=== PATIENT | female | born 1970 | race Caucasian/White ===

== ENCOUNTER 2017-02-07 02:42 | Emergency (ER) | payer OTHER ==
[2017-02-07 03:13] VITALS: BMI 24.3
[2017-02-07] MEDS ORDERED: SODIUM CHLORIDE 1,000 ML IV STA (03:46)
[2017-02-07] MEDS ORDERED: METOCLOPRAMIDE HCL INJECTION 10 MG/2 ML VIAL IVPB ONE (03:46)
[2017-02-07] MEDS ORDERED: PANTOPRAZOLE SODIUM 40 MG in SODIUM CHLORIDE 100 ML IVPB ONE (03:46)
[2017-02-07] MEDS ORDERED: FAMOTIDINE 20 MG/50 ML IVPB 50 ML IVPB ONE ×2 (03:46→04:03)
[2017-02-07 03:54] VITALS: BP 117/86; PULSE 82; TEMP 97.9
--- NOTE | 2017-02-07 03:59 | PDOC ---
History of Present Illness - General Chief Complaint: Pain Stated Complaint: STOMACH PAIN Time Seen by Provider: 02/07/17 03:39 History Source: Patient Exam Limitations: No Limitations - History of Present Illness Travel History: No Initial Comments: 02/07/17 03:54 47yo Female patient w/ PmHx: Cardiac ablation r/t SVT 5 months ago presents to ED c/o abd pain, n/v/d which began at 10pm yesterday. Patient states she took Ines [place] with mild relief. She states she still experiencing sharp shooting mid abdominal pain. Denies fever, CP, Back pain, or diff breathing. LNMP: Current. Timing/Duration: reports: constant Quality: reports: moderate, sharpness, other (Shooting) Abdominal Pain Onset Location: reports: periumbilical Pain Radiation: reports: no radiation Activities at Onset: reports: none Treatment Prior to Arrive: improves with: antacids Aggravating Factors: worse with: None, Defecation, Eating, Emotional upset, Exertion, [place], Movement, Voiding, Change in position Alleviating Factors: worse with: None, Belching, Shallow Breathing, Defecation, Eating, Holding Breath, Passing Gas, Change in Position, Rest, Voiding, Vomiting Past History - Travel Traveled outside of the country in the last 30 days: No Close contact w/someone who was outside of country & ill: No - Past Medical History Allergies/Adverse Reactions: Allergies Allergy/AdvReac Type Severity Reaction Status Date / Time No Known Allergies Allergy Verified 02/07/17 03:55 Home Medications: Ambulatory Orders Metoprolol Tartrate 50 mg PO ASDIR 06/18/14 Aspirin [ASA -] 81 mg PO DAILY #60 tab.chew 06/20/14 Flecainide Acetate [Flecainide Acetate -] 50 mg PO BID #60 tablet 06/20/14 Metoprolol Succinate [Toprol XL -] 12.5 mg PO DAILY #30 tab.sr.24h 06/20/14 Famotidine [Pepcid] 20 mg PO BID #14 tablet 02/07/17 Anemia: Yes Cardiac Disorders: Yes (a.fib) - Psycho/Social/Smoking Cessation Hx Anxiety: No Suicidal Ideation: No Smoking History: Never smoked Have you smoked in the past 12 months: No Hx Alcohol Use: No Drug/Substance Use Hx: No Substance Use Type: None, Alcohol Hx Substance Use Treatment: No Abd/GI Specific PMHX - Complaint Specific PMHX Colitis: No Diverticulitis: No Gall Bladder Disease: No GERD: No Hepatitis: No Irritable Bowel Synd (IBS): No Pancreatitis: No GI Ulcer Disease: No Review of Systems - Review of Systems Able to Perform ROS?: Yes Is the patient limited Bahamian proficient: No Constitutional: No: Chills, Fever Respiratory: No: Cough, Shortness of Breath, Stridor, Wheezing Cardiac (ROS): No: Chest Pain, Lightheadedness, Palpitations, Syncope, Chest Tightness ABD/GI: Yes: Diarrhea, Nausea, Poor Fluid Intake, Vomiting, Abdominal cramping. No: Constipated, Poor Appetite, Rectal Bleeding : No: Burning, Dysuria, Hematuria, Incontinence, Urgency Musculoskeletal: No: Back Pain Integumentary: No: Bruising, Erythema, Rash All Other Systems: Reviewed and Negative *Physical Exam - Vital Signs Last Vital Signs Temp Pulse Resp BP Pulse Ox 98.1 F 90 18 109/82 99 02/07/17 02:53 02/07/17 02:53 02/07/17 02:53 02/07/17 02:53 02/07/17 02:53 - Physical Exam General Appearance: Yes: Nourished, Appropriately Dressed, Mild Distress. No: Apparent Distress, Moderate Distress, Severe Distress Respiratory/Chest: positive: Lungs Clear, Normal Breath Sounds. negative: Respiratory Distress, Accessory Muscle Use, Labored Respiration, Rapid RR Cardiovascular: positive: Regular Rhythm, Regular Rate. negative: Edema, JVD, Murmur Gastrointestinal/Abdominal: positive: Tender, Soft, Increased Bowel Sounds, Tenderness (Generalized abd tenderness. Neg [place]). negative: Distended, Guarding, Rebound Musculoskeletal: positive: Normal Inspection. negative: CVA Tenderness Extremity: positive: Normal Capillary Refill, Normal Inspection, Normal Range of Motion Integumentary: positive: Normal Color, Dry, Warm Neurologic: positive: bilingual account manager II-XII NML intact, Fully Oriented, Alert, Normal Mood/ Affect, Normal Response, Motor Strength 5/5 ED Treatment Course - LABORATORY CBC & Chemistry Diagram: 02/07/17 04:20 02/07/17 04:20 *DC/Admit/Observation/Transfer Diagnosis at time of Disposition: Gastroenteritis - Discharge Dispostion Disposition: HOME Condition at time of disposition: Improved Admit: No - Prescriptions Prescriptions: Famotidine [Pepcid] 20 mg PO BID #14 tablet - Patient Instructions Printed Discharge Instructions: DI for Viral Gastroenteritis -- Adult Additional Instructions: FOLLOW UP WITH YOUR PRIMARY CARE PROVIDER. CALL TO SCHEDULE APPOINTMENT. TAKE MEDICATIONS PRESCRIBED. RETURN IF YOUR SYMPTOMS WORSEN OR ANY CONCERN FOR FURTHER EVALUATION. AVOID ALCOHOL, SPICY OR GREASY FOODS X5 DAYS. Print Language: LAO
[2017-02-07] MEDS ORDERED: PANTOPRAZOLE SODIUM 100 ML IVPB ONE (04:03)
[2017-02-07] MEDS ORDERED: METOCLOPRAMIDE HCL INJECTION 10 MG/2 ML VIAL ONE (04:03)
[2017-02-07 04:31] LABS: BASOPHIL 0.3 % (0-2.0); EOSINOPHIL 1.7 % (0-4.5); MCH 30.2 pg (25.7-33.7); MCHC 33.7 g/dl (32.0-36.0); MEAN CELL VOLUME 89.5 fl (80-96); MEAN PLT VOLUME 7.5 fl (7.5-11.1); NEUTROPHILS 76.4 % (42.8-82.8); PLATELET COUNT 209 K/MM3 (134-434); RDW 13.4 % (11.6-15.6); WHITE BLOOD COUNT 11.7 K/mm3 (4.0-10.0)
[2017-02-07 04:42] LABS: URINE APPEARANCE CLEAR; URINE BILIRUBIN NEGATIVE (NEGATIVE); URINE COLOR LTYELLOW; URINE GLUCOSE (UA) NEGATIVE (NEGATIVE); URINE KETONE NEGATIVE (NEGATIVE); URINE NITRITE NEGATIVE (NEGATIVE); URINE PROTEIN NEGATIVE (NEGATIVE); URINE UROBILINOGEN NEGATIVE E.U./dl (0.2-1.0)
[2017-02-07 04:50] LABS: URINE BLOOD 2+ (NEGATIVE); URINE LEUK ESTERASE TRACE (NEGATIVE)
[2017-02-07 04:52] LABS: ALBUMIN 3.5 g/dl (3.4-5.0); AMYLASE 33 U/L (25-115); ANION GAP 9 (8-16); BILIRUBIN,DIRECT 0.1 mg/dL (0.0-0.2); BILIRUBIN,TOTAL 0.3 mg/dL (0.2-1.0); CALCIUM 8.1 mg/dL (8.5-10.1); CO2 28 mmol/L (21-32); CREATININE 0.7 mg/dL (0.55-1.02); GLUCOSE,RANDOM 90 mg/dL (74-106); SGOT/AST 16 U/L (15-37); SGPT/ALT 20 U/L (12-78); TOT PROT 6.8 g/dl (6.4-8.2)
[2017-02-07 04:52] LABS: URINE BACTERIA RARE /hpf (NONE SEEN); URINE MUCUS RARE; URINE RBC 33 /hpf (0-3); URINE WBC 24 /hpf (3-5)
[2017-02-07 04:56] LABS: ALK PHOS 74 U/L (45-117)
[2017-02-07 04:57] LABS: TROPONIN I < 0.02 ng/ml (0.00-0.05)
[2017-02-07] MEDS ORDERED: POTASSIUM CHLORIDE TABS 20 MEQ TABLET.ER (FP) PO ONE ×2 (05:29→05:48)
[2017-02-07] MEDS ORDERED: DIPHENOXYLATE 2.5/ATROPINE.025 1 COMBO TABLET PO ONE (05:34)
[2017-02-07] MEDS ORDERED: DIPHENOXYLATE 2.5/ATROPINE.025 1 COMBO TABLET ONE (05:48)
== END 2017-02-07 05:59 | disposition home or self-care (01) ==
LOC: JER 02:42
PROC: 3E033GC Introduction of Other Therapeutic Substance into Peripheral Vein, Percutaneous Approach (ICD-10-PCS; principal; 2017-02-07)
PROC: 3E0337Z Introduction of Electrolytic and Water Balance Substance into Peripheral Vein, Percutaneous Approach (ICD-10-PCS; 2017-02-07)
DX: K52.9 Noninfective gastroenteritis and colitis, unspecified (principal); I47.1 Supraventricular tachycardia; Z79.82 Long term (current) use of aspirin; I48.91 Unspecified atrial fibrillation; D64.9 Anemia, unspecified
CPT/HCPCS: 36415; 80048; 80076; 81003; 81015; 82150; 82550; 83690; 84484; 84703; 85025; 85730; 96361; 96365; 96368; 96375; 99281-25; 99284-25

== ENCOUNTER 2017-03-08 21:18 | Emergency (ER) | payer OTHER ==
[2017-03-08 21:37] VITALS: TEMP 98; BMI 24.3
--- NOTE | 2017-03-08 22:47 | PDOC ---
History of Present Illness - General History Source: Patient Exam Limitations: No Limitations <Tiesha Finch - Last Filed: 03/08/17 23:33> <Jackie Brooks - Last Filed: 03/09/17 00:02> - General Chief Complaint: Irregular Heart Beat Stated Complaint: PALPITATIONS Time Seen by Provider: 03/08/17 22:16 - History of Present Illness Initial Comments: 03/08/17 23:33 Patient is a 47 year old female with a significant past medical history of Afib (on Xarelto) and ablation September 2016 (on Multaq) who presents to the ED with palpitations. Patient states that she developed rapid heart beat in 120s. Patient notes that this is a third episode since the ablation surgery. Patient notes that she had an appointment with a band director few weeks ago and her next follow up visit is in May 2017. She states that the band director is aware of this problem. Patient notes that she was told to stop Multaq after 1 month, but she still experiences arrhythmia. Patient is currently taking abx for her kidney infection. PSH - 2 C sections, ablation, endometrial ablation SH - non smoker, no alcohol use, no illicit drug use Patient Care Assistant - Dr. Keith Bowser (Tiesha Finch) Past History <Tiesha Finch - Last Filed: 03/08/17 23:33> - Past Medical History Anemia: Yes Cardiac Disorders: Yes (a.fib) - Surgical History Cardiac Surgery: Yes (ablation 09/30) - Psycho/Social/Smoking Cessation Hx Anxiety: No Suicidal Ideation: No Smoking History: Never smoked Have you smoked in the past 12 months: No Hx Alcohol Use: No Drug/Substance Use Hx: No Substance Use Type: None, Alcohol Hx Substance Use Treatment: No <Jackie Brooks - Last Filed: 03/09/17 00:02> - Past Medical History Allergies/Adverse Reactions: Allergies Allergy/AdvReac Type Severity Reaction Status Date / Time No Known Allergies Allergy Verified 03/08/17 21:32 Home Medications: Ambulatory Orders Dronedarone HCl [Multaq -] 400 mg PO BID 03/08/17 Rivaroxaban [Xarelto -] 20 mg PO DAILY 03/08/17 Cardiac Specific PMH - Complaint Specific PMHX GERD: No <Jackie Brooks - Last Filed: 03/09/17 00:02> Review of Systems - Review of Systems Able to Perform ROS?: Yes <Tiesha Finch - Last Filed: 03/08/17 23:33> <Jackie Brooks - Last Filed: 03/09/17 00:02> - Review of Systems Comments:: 03/08/17 23:34 CONSTITUTIONAL: Absent: fever, chills, diaphoresis, generalized weakness, malaise, loss of appetite HEENT: Absent: rhinorrhea, nasal congestion, throat pain, throat swelling, difficulty swallowing, mouth swelling, ear pain, eye pain, visual Changes CARDIOVASCULAR: Present: palpitations, irregular heart rate, Absent: chest pain, syncope, lightheadedness, peripheral edema RESPIRATORY: Absent: cough, shortness of breath, dyspnea with exertion, orthopnea, wheezing, stridor, hemoptysis GASTROINTESTINAL: Absent: abdominal pain, abdominal distension, nausea, vomiting, diarrhea, constipation, melena, hematochezia GENITOURINARY: Absent: dysuria, frequency, urgency, hesitancy, hematuria, flank pain, genital pain MUSCULOSKELETAL: Absent: myalgia, arthralgia, joint swelling SKIN: Absent: rash, itching, pallor HEMATOLOGIC/IMMUNOLOGIC: Absent: easy bleeding, easy bruising, lymphadenopathy, frequent infections ENDOCRINE: Absent: unexplained weight gain, unexplained weight loss, heat intolerance, cold intolerance NEUROLOGIC: Absent: headache, focal weakness or paresthesias, dizziness, unsteady gait, seizure, mental status changes, bladder or bowel incontinence PSYCHIATRIC: Absent: anxiety, depression, suicidal or homicidal ideation, hallucinations. (Tiesha Finch) *Physical Exam <Tiesha Finch - Last Filed: 03/08/17 23:33> <Jackie Brooks - Last Filed: 03/09/17 00:02> - Vital Signs Last Vital Signs Temp Pulse Resp BP Pulse Ox 98 F 95 H 20 97/76 98 03/08/17 21:33 03/08/17 22:44 03/08/17 22:44 03/08/17 22:44 03/08/17 22:44 - Physical Exam Comments: 03/08/17 23:34 GENERAL: Well developed, well nourished. Awake and alert. No acute distress. HEENT: Normocephalic, atraumatic. PERRLA, EOMI. No conjunctival pallor. Sclera are non- icteric. Moist mucous membranes. Oropharynx is clear. NECK: Supple. Full ROM. No JVD. Carotid pulses 2+ and symmetric, without bruits. No thyromegaly. No lymphadenopathy. CARDIOVASCULAR: +Tachycardic. No murmurs, rubs, or gallops. Distal pulses are 2+ and symmetric. PULMONARY: No evidence of respiratory distress. Lungs clear to auscultation bilaterally. No wheezing, rales or rhonchi. ABDOMINAL: Soft. Non-tender. Non-distended. No rebound or guarding. No organomegaly. Normoactive bowel sounds. MUSCULOSKELETAL Normal range of motion at all joints. No bony deformities or tenderness. No CVA tenderness. EXTREMITIES: No cyanosis. No clubbing. No edema. No calf tenderness. SKIN: Warm and dry. Normal capillary refill. No rashes. No jaundice. NEUROLOGICAL: Alert, awake, appropriate. Cranial nerves 2-12 intact. No deficits to light touch and temperature in face, upper extremities and lower extremities. No motor deficits in the in face, upper extremities and lower extremities. Normoreflexic in the upper and lower extremities. Normal speech. Toes are down-going bilaterally. Gait is normal without ataxia. PSYCHIATRIC: Cooperative. Good eye contact. Appropriate mood and affect. (Tiesha Finch) ED Treatment Course - LABORATORY CBC & Chemistry Diagram: 03/08/17 23:07 03/08/17 23:07 <Tiesha Finch - Last Filed: 03/08/17 23:33> - LABORATORY CBC & Chemistry Diagram: 03/08/17 23:07 03/08/17 23:07 <Jackie Brooks - Last Filed: 03/09/17 00:02> - ADDITIONAL ORDERS Additional order review: Laboratory Results 03/08/17 03/08/17 03/08/17 23:07 23:07 23:07 INR 2.24 H D Sodium 141 Potassium 3.4 L Chloride 104 Carbon Dioxide 25 Anion Gap 12 BUN 17 D Creatinine 0.7 Creat Clearance w eGFR > 60 Random Glucose 89 Calcium 9.2 Magnesium 2.4 D Total Bilirubin 0.3 AST 16 ALT 25 D Alkaline Phosphatase 84 Creatine Kinase 103 Troponin I 0.04 B-Natriuretic Peptide 45.39 Total Protein 7.3 Albumin 4.0 Serum , Qual Negative 03/08/17 23:07 RBC 4.65 MCV 89.3 MCHC 33.1 RDW 13.6 MPV 8.1 Neutrophils % 50.3 D Lymphocytes % 31.7 D Monocytes % 10.9 H Eosinophils % 6.3 H D Basophils % 0.8 Medical Decision Making <Tiesha Finch - Last Filed: 03/08/17 23:33> <Jackie Brooks - Last Filed: 03/09/17 00:02> - Medical Decision Making 03/08/17 23:35 A call was placed to Dr. Bowser to discuss the case. A call back was received from Dr. Pulliam, division operations manager physician for the cardiology group. (Tiesha Finch) *DC/Admit/Observation/Transfer <Tiesha Finch - Last Filed: 03/08/17 23:33> <Jackie Brooks - Last Filed: 03/09/17 00:02> Diagnosis at time of Disposition: Palpitation - Discharge Dispostion Disposition: HOME Condition at time of disposition: Stable - Referrals Referrals: Kassy Call MD [Primary Care Provider] - - Patient Instructions Printed Discharge Instructions: DI for Arrhythmias Additional Instructions: please see Dr Bowser in his office tomorrow - Attestations Scribe Attestion: 03/08/17 23:35 Documentation prepared by GILMAR Carballo, acting as biomedical analytical scientist for Jackie Brooks MD. (Tiesha Finch)
[2017-03-08 22:53] VITALS: BP 97/76; PULSE 95
[2017-03-08 23:21] LABS: BASOPHIL 0.8 % (0-2.0); EOSINOPHIL 6.3 % (0-4.5); MCH 29.6 pg (25.7-33.7); MCHC 33.1 g/dl (32.0-36.0); MEAN CELL VOLUME 89.3 fl (80-96); MEAN PLT VOLUME 8.1 fl (7.5-11.1); NEUTROPHILS 50.3 % (42.8-82.8); PLATELET COUNT 252 K/MM3 (134-434); RDW 13.6 % (11.6-15.6); WHITE BLOOD COUNT 9.1 K/mm3 (4.0-10.0)
[2017-03-08 23:34] LABS: INR 2.24 (0.82-1.09)
[2017-03-08 23:44] LABS: ANION GAP 12 (8-16); BILIRUBIN,TOTAL 0.3 mg/dL (0.2-1.0); CALCIUM 9.2 mg/dL (8.5-10.1); CO2 25 mmol/L (21-32); COCKROFT - GAULT 102.085; CREATININE 0.7 mg/dL (0.55-1.02); GLUCOSE,RANDOM 89 mg/dL (74-106); MAGNESIUM 2.4 mg/dL (1.8-2.4); SGOT/AST 16 U/L (15-37); SGPT/ALT 25 U/L (12-78); TOT PROT 7.3 g/dl (6.4-8.2)
[2017-03-08 23:47] LABS: ALK PHOS 84 U/L (45-117); TROPONIN I 0.04 ng/ml (0.00-0.05)
[2017-03-09] MEDS ORDERED: POTASSIUM CHLORIDE TABS 20 MEQ TABLET.ER (FP) PO ONE ×2 (00:02→00:23)
--- NOTE | 2017-03-10 08:19 | EKG ---
Test Reason : Blood Pressure : / mmHG Vent. Rate : 093 BPM Atrial Rate : 093 BPM P-R Int : 126 ms QRS Dur : 070 ms QT Int : 344 ms P-R-T Axes : 018 019 033 degrees QTc Int : 427 ms NORMAL SINUS RHYTHM NORMAL ECG WHEN COMPARED WITH ECG OF 20-JUN-2014 09:24, NO SIGNIFICANT CHANGE WAS FOUND Confirmed by KEVIN DUNN MD ([id number]) on 03/10/2017 8:18:45 AM Referred By: Confirmed By:KEVIN DUNN MD
== END 2017-03-09 00:29 | disposition home or self-care (01) ==
LOC: JER 21:18
DX: R00.2 Palpitations (principal); I48.91 Unspecified atrial fibrillation; Z79.01 Long term (current) use of anticoagulants; D64.9 Anemia, unspecified
CPT/HCPCS: 36415; 80053; 82550; 83735; 83880; 84484; 84703; 85025; 85610; 93005; 93010; 99284-25

== ENCOUNTER 2017-03-22 07:19 | Day surgery (SDC) | payer OTHER ==
[2017-03-19 10:55] VITALS: BMI 24.0
[~2017-03-22 07:19] MED LIST: LEVOFLOXACIN 500 MG PREMIX BAG IVPB ONE
[2017-03-22] MEDS ORDERED: PROPOFOL 20 ML ONE ×3 (09:03)
[2017-03-22] MEDS ORDERED: LEVOFLOXACIN 500 MG IVPB 100 ML IVPB ONE (09:04)
[2017-03-22] MEDS ORDERED: MIDAZOLAM HCL 2 MG/2 ML SINGLE DOSE VIAL ONE ×2 (09:14)
[2017-03-22] MEDS ORDERED: KETOROLAC TROMETHAMINE 30 MG/1 ML VIAL ONE (09:14)
[2017-03-22] MEDS ORDERED: DEXAMETHASONE SOD PHOSPHATE 4 MG/1 ML VIAL ONE (09:14)
[2017-03-22] MEDS ORDERED: LEVOFLOXACIN 500 MG PREMIX BAG IVPB ONE (09:17)
[2017-03-22] MEDS ORDERED: ONDANSETRON 4 MG/2 ML VIAL IVPUSH PRN (09:56)
[2017-03-22] MEDS ORDERED: PROMETHAZINE HCL 25 MG/1 ML VIAL IVPUSH PRN (09:56)
[2017-03-22] MEDS ORDERED: oxyCODONE HCL 5 MG TABLET PO PRN (09:56)
--- NOTE | 2017-03-22 09:58 | OP ---
Operative Note - Note: Operative Date: 03/22/17 Pre-Operative Diagnosis: left renal stone Operation: left eswl Findings: 2.0 cm left lower pole stone. Patient may require follow-up LULL due to size and density of stone Post-Operative Diagnosis: Same as Pre-op Surgeon: Jani Younger Anesthesia: General Operative Report Dictated: Yes
[2017-03-22 10:43] VITALS: TEMP 97.8
[2017-03-22] MEDS ORDERED: ONDANSETRON 4 MG/2 ML VIAL ONE (11:43)
[2017-03-22 14:14] VITALS: BP 121/80; PULSE 84
--- NOTE | 2017-03-22 19:55 | OP ---
DATE OF OPERATION: DATE OF DICTATION: 03/22/2017 PREOPERATIVE DIAGNOSIS: Left renal stone. POSTOPERATIVE DIAGNOSIS: Left renal stone. PROCEDURE: Left extracorporeal shock wave lithotripsy. ATTENDING: Geni Younger M.D. ANESTHESIA: General. OPERATION: Patient was brought in the operating room, placed in a supine position on the operating room table. Ultrasonography and fluoroscopy were performed. A 2-cm left lower pole stone was identified. On fluoroscopy, this appeared to be a dense stone. Patient was then given general anesthesia and preoperative antibiotics consisting of Levaquin 500 mg. The patient then underwent 3000 impulses at 20 joules of power. There was moderate fragmentation of the stone. A was not possible due to the density and size of the stone. The patient will be observed postoperatively and have repeat studies in order to gauge the efficacy of the procedure. Patient most likely will require a left ureteroscopic laser lithotripsy at another sitting. GENI RDZ M.D. [id number]
== END 2017-03-22 13:50 | disposition home or self-care (01) ==
LOC: JASU-SURG 07:19
PROVIDERS: ATTEND Urology
PROC: 0TF4XZZ Fragmentation in Left Kidney Pelvis, External Approach (ICD-10-PCS; principal; 2017-03-22 08:45)
DX: N20.0 Calculus of kidney (principal)
CPT/HCPCS: 84703; 94760

== ENCOUNTER 2017-03-24 09:06 | Emergency (ER) | payer OTHER ==
[2017-03-24 09:10] VITALS: BMI 24.7
[2017-03-24] MEDS ORDERED: morphine CARPU-JECT 4 MG/1 ML DISP.SYRIN ONE (09:24)
[2017-03-24] MEDS ORDERED: SODIUM CHLORIDE 0.9% 1000 ML INFUS.BAG IV ONE (09:30)
--- NOTE | 2017-03-24 09:30 | PDOC ---
History of Present Illness - General History Source: Patient Exam Limitations: No Limitations - History of Present Illness Initial Comments: 03/24/17 09:36 The patient is a 47 year old female, with a significant past medical history of A-fib (on Xarelto) and ablation in September 2016, who presents to the emergency department with left flank pain since 4am this morning. The patient reports having a kidney stone lithotripsy on Wednesday with her urologist. She reports since the procedure feeling overall okay until around 4:30 am today where she became symptomatic for left flank pain again. The patient reports her pain is similar to her past kidney stones, but much worse in pain intensity. She describes the pain as constant often radiating to her left groin area ranking her pain a 10/10 in pain intensity. The patient also reports being seen in [facility] ER for heart palpitations yesterday. She denies recent fevers, chills , headache or dizziness. She denies recent nausea, vomit, diarrhea or constipation. She denies recent dysuria, frequency, urgency or hematuria. She denies recent chest pain or shortness of breath. Allergies: NKA Past surgical history: See HPI Social history: Nonsmoker. Denies EtOH use and recreational drug use. Primary Care Physician: President [place]: Dr. Bowser [phone] Urologist: [phone] <Nixon Alas - Last Filed: 03/24/17 11:41> <Lisa Chand - Last Filed: 03/24/17 12:11> - General Chief Complaint: Pain, Acute Stated Complaint: POST-OP/ BACK, ABD PAIN Time Seen by Provider: 03/24/17 09:21 Past History <Nixon Alas - Last Filed: 03/24/17 11:41> - Past Medical History Anemia: Yes Asthma: No Cancer: No Cardiac Disorders: Yes (a.fib-had an ablation 2015) CVA: No COPD: No CHF: No Dementia: No Diabetes: No GI Disorders: No Disorders: No HTN: No Hypercholesterolemia: No Kidney Stones: Yes Liver Disease: No Seizures: No Thyroid Disease: No - Surgical History Cardiac Surgery: Yes (ablation 09/30) - Psycho/Social/Smoking Cessation Hx Anxiety: No Suicidal Ideation: No Smoking History: Never smoked Have you smoked in the past 12 months: No Hx Alcohol Use: No Drug/Substance Use Hx: No Substance Use Type: None Hx Substance Use Treatment: No <Lisa Chand - Last Filed: 03/24/17 12:11> - Past Medical History Allergies/Adverse Reactions: Allergies Allergy/AdvReac Type Severity Reaction Status Date / Time No Known Allergies Allergy Verified 03/24/17 09:10 Home Medications: Ambulatory Orders Rivaroxaban [Xarelto -] 20 mg PO DAILY 03/08/17 Flecainide Acetate [Flecainide Acetate -] 50 mg PO BID 03/22/17 Naproxen [Naprosyn -] 500 mg PO BID PRN 03/24/17 Oxycodone HCl/Acetaminophen [Percocet 5-325 mg Tablet] 1 tab PO Q4H #15 tablet MDD 6 03/24/17 Abd/GI Specific PMHX - Complaint Specific PMHX Colitis: No Diverticulitis: No Gall Bladder Disease: No GERD: No Hepatitis: No Irritable Bowel Synd (IBS): No Pancreatitis: No GI Ulcer Disease: No <Lisa Chand - Last Filed: 03/24/17 12:11> Review of Systems - Review of Systems Able to Perform ROS?: Yes Comments:: 03/24/17 09:36 GENERAL/CONSTITUTIONAL: No fever or chills. No weakness. HEAD, EYES, EARS, NOSE AND THROAT: No change in vision. No ear pain or discharge. No sore throat. CARDIOVASCULAR: No chest pain or shortness of breath. RESPIRATORY: No cough, wheezing, or hemoptysis. GASTROINTESTINAL: +left flank pain. No nausea, vomiting, diarrhea or constipation. GENITOURINARY: No dysuria, frequency, or change in urination. MUSCULOSKELETAL: No joint or muscle swelling or pain. No neck or back pain. SKIN: No rash NEUROLOGIC: No headache, vertigo, loss of consciousness, or change in strength/ sensation. ENDOCRINE: No increased thirst. No abnormal weight change. HEMATOLOGIC/LYMPHATIC: No anemia, easy bleeding, or history of blood clots. ALLERGIC/IMMUNOLOGIC: No hives or skin allergy. <Nixon Alas - Last Filed: 03/24/17 11:41> *Physical Exam - Vital Signs Last Vital Signs Temp Pulse Resp BP Pulse Ox 98.3 F 101 H 20 122/82 03/24/17 09:07 03/24/17 09:07 03/24/17 09:07 03/24/17 09:07 - Physical Exam Comments: 03/24/17 10:06 GENERAL: Awake, alert, and fully oriented, in no acute distress HEAD: No signs of trauma EYES: PERRLA, EOMI, sclera anicteric, conjunctiva clear ENT: Auricles normal inspection, hearing grossly normal, nares patent, Moist mucosa NECK: Normal ROM, supple, JVD, or masses LUNGS: Breath sounds equal, clear to auscultation bilaterally. No wheezes, and no crackles HEART: Regular rate and rhythm, normal S1 and S2, no murmurs, rubs or gallops BACK: LEFT CVA tenderness. ABDOMEN: Soft, normoactive bowel sounds. No guarding, no rebound. No masses EXTREMITIES: Normal range of motion, no edema. No clubbing or cyanosis. No cords, erythema, or tenderness. 2+DP/PT pulses. NEUROLOGICAL: Normal speech, normal gait, moves all extremities equally. Speech clear. SKIN: Warm, Dry, normal turgor, no rashes or lesions noted. <Nixon Alas - Last Filed: 03/24/17 11:41> - Vital Signs Last Vital Signs Temp Pulse Resp BP Pulse Ox 98.3 F 101 H 20 122/82 03/24/17 09:07 03/24/17 09:07 03/24/17 09:07 03/24/17 09:07 <Lisa Chand - Last Filed: 03/24/17 12:11> Heart Score/ECG Review - ECG Intrepretation Rhythm: Regular Rhythm Comment:: 03/24/17 11:37 rate 84 bpm, no st elevation or depression. <Lisa Chand - Last Filed: 03/24/17 12:11> ED Treatment Course - LABORATORY CBC & Chemistry Diagram: 03/24/17 09:30 03/24/17 09:30 <Nixon Alas - Last Filed: 03/24/17 11:41> - LABORATORY CBC & Chemistry Diagram: 03/24/17 09:30 03/24/17 09:30 <Lisa Chand - Last Filed: 03/24/17 12:11> Medical Decision Making - Medical Decision Making 03/24/17 11:42 Call made to , case discussed. <Nixon Alas - Last Filed: 03/24/17 11:41> - Medical Decision Making 03/24/17 09:29 47 yo F with h/o renal colic afib ( s/p ablation 09/30) had ablation 5 days ago left side 2 mm stone here today with left sided flank pain. pt describes sharp shooting pain constant since onset 4 am, radiating to groin. no n/v/d. no f/c no urinary complaints. similar to prior stone, but worse. was also seen in ed yesterday at [facility] for afib, where cardiac cath tech ,and was activated yesterday. pt prior on xarelto ( dc 2 weeks for lithotripsy). only prior surgery c section, and card. ablation. on exam, left cva tenderness. otherwise abd soft NT . ddgx. recurrent stone, pyelo, hydro. plan ct a/p wo, fluids pain control labs and ua. will d/w urologist. 03/24/17 10:17 03/24/17 11:37 03/24/17 11:43 dr. diallo informed pt feeling better, recommend reassurance, addition rx coby meds , and follow up with him tomorrow. pt feeling much improved. <Lisa Chand - Last Filed: 03/24/17 12:11> *DC/Admit/Observation/Transfer - Attestations Scribe Attestion: 03/24/17 09:37 Documentation prepared by Nixon Alas, acting as medical center manager for Lisa Chand MD. <Nixon Alas - Last Filed: 03/24/17 11:41> - Discharge Dispostion Admit: No <Lisa Chand - Last Filed: 03/24/17 12:11> Diagnosis at time of Disposition: Renal colic on left side - Discharge Dispostion Disposition: HOME - Prescriptions Prescriptions: Oxycodone HCl/Acetaminophen [Percocet 5-325 mg Tablet] 1 tab PO Q4H #15 tablet MDD 6 - Referrals Referrals: Kassy Call MD [Primary Care Provider] - - Patient Instructions Printed Discharge Instructions: Kidney Stones -- Adult Additional Instructions: follow up with your urologist Dr. Diallo tomorrow. return for fever, persistant pain or vomiting or inability to urinate. you can continue taking naprosyn as you have been for pain. take percocet one every 6 hour as needed for pain. do not drive after taking.
[2017-03-24] MEDS ORDERED: morphine CARPU-JECT 4 MG/1 ML DISP.SYRIN IVPUSH ONE (09:31)
[2017-03-24 10:20] LABS: BASOPHIL 0.5 % (0-2.0); EOSINOPHIL 0.8 % (0-4.5); MCH 29.6 pg (25.7-33.7); MCHC 32.8 g/dl (32.0-36.0); MEAN PLT VOLUME 7.9 fl (7.5-11.1); NEUTROPHILS 74.8 % (42.8-82.8); PLATELET COUNT 221 K/MM3 (134-434); RDW 13.4 % (11.6-15.6); WHITE BLOOD COUNT 16.4 K/mm3 (4.0-10.0)
[2017-03-24] MEDS ORDERED: KETOROLAC TROMETHAMINE 30 MG/1 ML VIAL ONE (10:29)
[2017-03-24 10:35] VITALS: TEMP 98.6
[2017-03-24] MEDS ORDERED: KETOROLAC TROMETHAMINE 30 MG/1 ML VIAL IVPUSH ONE (10:43)
[2017-03-24 10:49] LABS: URINE APPEARANCE CLEAR; URINE BILIRUBIN NEGATIVE (NEGATIVE); URINE COLOR LTYELLOW; URINE GLUCOSE (UA) NEGATIVE (NEGATIVE); URINE KETONE NEGATIVE (NEGATIVE); URINE LEUK ESTERASE NEGATIVE (NEGATIVE); URINE NITRITE NEGATIVE (NEGATIVE); URINE PROTEIN NEGATIVE (NEGATIVE); URINE UROBILINOGEN NEGATIVE E.U./dl (0.2-1.0)
[2017-03-24 10:51] LABS: ALK PHOS 80 U/L (45-117); ANION GAP 10 (8-16); BILIRUBIN,TOTAL 0.4 mg/dL (0.2-1.0); CALCIUM 9.4 mg/dL (8.5-10.1); CO2 26 mmol/L (21-32); COCKROFT - GAULT 78.2935; CREATININE 0.9 mg/dL (0.55-1.02); GLUCOSE,RANDOM 93 mg/dL (74-106); SGOT/AST 15 U/L (15-37); SGPT/ALT 23 U/L (12-78); TOT PROT 7.4 g/dl (6.4-8.2)
[2017-03-24 11:06] LABS: URINE BLOOD 3+ (NEGATIVE)
[2017-03-24 11:13] LABS: URINE MUCUS RARE; URINE RBC 91 /hpf (0-3); URINE WBC 11 /hpf (3-5)
[2017-03-24 12:36] VITALS: BP 116/91; PULSE 89
--- NOTE | 2017-03-24 13:27 | EKG ---
Test Reason : Blood Pressure : / mmHG Vent. Rate : 084 BPM Atrial Rate : 084 BPM P-R Int : 128 ms QRS Dur : 082 ms QT Int : 370 ms P-R-T Axes : 037 063 056 degrees QTc Int : 437 ms NORMAL SINUS RHYTHM NORMAL ECG WHEN COMPARED WITH ECG OF 08-MAR-2017 23:24, NO SIGNIFICANT CHANGE WAS FOUND Confirmed by CHERELLE SERRANO MD ([id number]) on 03/24/2017 1:27:31 PM Referred By: Confirmed By:CHERELLE SERRANO MD
== END 2017-03-24 12:36 | disposition home or self-care (01) ==
LOC: JER 09:06
PROC: 3E0333Z Introduction of Anti-inflammatory into Peripheral Vein, Percutaneous Approach (ICD-10-PCS; principal; 2017-03-24)
PROC: 3E033NZ Introduction of Analgesics, Hypnotics, Sedatives into Peripheral Vein, Percutaneous Approach (ICD-10-PCS; 2017-03-24)
PROC: 3E0337Z Introduction of Electrolytic and Water Balance Substance into Peripheral Vein, Percutaneous Approach (ICD-10-PCS; 2017-03-24)
DX: N20.0 Calculus of kidney (principal); I48.91 Unspecified atrial fibrillation; Z79.01 Long term (current) use of anticoagulants; D64.9 Anemia, unspecified
CPT/HCPCS: 36415; 74176; 80053; 81003; 81015; 84703; 85025; 93005; 93010; 96374; 96375; 99284-25

== ENCOUNTER 2017-06-14 10:38 | Day surgery (SDC) | payer OTHER ==
[2017-06-11 10:57] VITALS: BMI 24.4
[2017-06-14] MEDS ORDERED: LEVOFLOXACIN 500 MG IVPB 100 ML IVPB ONE (13:18)
[2017-06-14] MEDS ORDERED: LEVOFLOXACIN 500 MG PREMIX BAG IVPB ONE (13:18)
[2017-06-14] MEDS ORDERED: GENTAMICIN SO4 80 MG/2 ML VIAL ONE (13:29)
[2017-06-14] MEDS ORDERED: GENTAMICIN SO4 80 MG/2 ML VIAL IVPB ONE (13:30)
[2017-06-14] MEDS ORDERED: ONDANSETRON 4 MG/2 ML VIAL IVPUSH PRN (14:02)
[2017-06-14] MEDS ORDERED: PROMETHAZINE HCL 25 MG/1 ML VIAL IVPUSH PRN (14:02)
[2017-06-14] MEDS ORDERED: oxyCODONE HCL 5 MG TABLET PO PRN (14:02)
[2017-06-14] MEDS ORDERED: ONDANSETRON 4 MG/2 ML VIAL ONE (15:27)
--- NOTE | 2017-06-14 15:35 | OP ---
Operative Note - Note: Operative Date: 06/14/17 Pre-Operative Diagnosis: left renal stone Operation: left eswl Post-Operative Diagnosis: Same as Pre-op Surgeon: Jani Younger Anesthesia: General
[2017-06-14 17:53] VITALS: BP 106/72; PULSE 90; TEMP 97.8
--- NOTE | 2017-06-15 09:00 | OP ---
DATE OF OPERATION: 06/14/2017 PREOPERATIVE DIAGNOSIS: Left lower pole renal stone measuring 10 mm. POSTOPERATIVE DIAGNOSIS: Left lower pole renal stone measuring 10 mm. PROCEDURE: Left extracorporeal shockwave lithotripsy. ATTENDING: Jani Wright MD ANESTHESIA: General. OPERATION: The patient was brought in the operating room and placed in the supine position on the operating room table. Ultrasonography and fluoroscopy were performed. A 10-mm left lower pole stone was identified. General anesthesia and antibiotics were then administered; 3000 impulses at 18 joules of power were administered to the stone. Excellent fragmentation of the stone was noted. No complications were noted. DISPOSITION: The patient went to the recovery room. Kishore [id number]
== END 2017-06-14 17:30 | disposition home or self-care (01) ==
LOC: JASU-SURG 10:38
PROVIDERS: ATTEND Urology
PROC: 0TF4XZZ Fragmentation in Left Kidney Pelvis, External Approach (ICD-10-PCS; principal; 2017-06-14 12:45)
DX: N20.0 Calculus of kidney (principal)
CPT/HCPCS: 84703; 94760

== ENCOUNTER 2017-07-12 17:34 | Day surgery (SDC) | payer OTHER ==
[2017-07-09 14:35] VITALS: BMI 23.5
[2017-07-12] MEDS ORDERED: KETOROLAC TROMETHAMINE 30 MG/1 ML VIAL ONE ×2 (18:48→19:48)
[2017-07-12] MEDS ORDERED: MIDAZOLAM HCL 2 MG/2 ML SINGLE DOSE VIAL ONE ×2 (18:48)
[2017-07-12] MEDS ORDERED: PROPOFOL 20 ML ONE ×2 (18:48→19:04)
[2017-07-12] MEDS ORDERED: DEXAMETHASONE SOD PHOSPHATE 4 MG/1 ML VIAL ONE ×2 (18:48→19:48)
[2017-07-12] MEDS ORDERED: SUCCINYLCHOLINE CHLORIDE 200 MG/10 ML VIAL ONE (19:15)
[2017-07-12] MEDS ORDERED: LEVOFLOXACIN 500 MG PREMIX BAG IVPB ONE (19:15)
--- NOTE | 2017-07-12 19:58 | OP ---
Operative Note - Note: Operative Date: 07/12/17 Pre-Operative Diagnosis: left renal stone/left calcified ureteral stent Operation: ESWL of proximal calcified renal stone and residual renal stone Findings: calcified renal stent removed/second stent left in good position 1500 impulses at 20 joules of power given to stent and 1500 impulses at 20 joules of power givent to left lower pole stone Post-Operative Diagnosis: Same as Pre-op Surgeon: Jani Younger Anesthesia: General Specimens Removed: one of two left ureteral stents removed
[2017-07-12] MEDS ORDERED: oxyCODONE HCL 5 MG TABLET PO PRN (20:13)
[2017-07-12] MEDS ORDERED: PROMETHAZINE HCL 25 MG/1 ML VIAL IVPUSH PRN (20:13)
[2017-07-12] MEDS ORDERED: ONDANSETRON 4 MG/2 ML VIAL IVPUSH PRN (20:13)
[2017-07-12] MEDS: ACETAMINOPHEN 1000 MG/100 ML VIAL (NON FORMULARY) IVPB ONE ×2 (20:15→21:09)
[2017-07-12 21:13] VITALS: BP 128/88; PULSE 87; TEMP 98
--- NOTE | 2017-07-13 09:54 | OP ---
DATE OF OPERATION: 07/12/2017 PREOPERATIVE DIAGNOSES: Calcified left renal stent with residual renal stones. POSTOPERATIVE DIAGNOSES: Calcified left renal stent with residual renal stones. PROCEDURE: Extracorporeal shock wave lithotripsy of proximal calcified renal stent and extracorporeal shock wave lithotripsy of left lower-pole renal stone; cystoscopy and removal of left ureteral stent. ATTENDING SURGEON: Jani Wright MD ANESTHESIA: General. DESCRIPTION OF OPERATION: The patient was brought in the operating room, placed in the supine position on the operating room table. Ultrasonography and fluoroscopy were performed. Two left ureteral stents were in place. The stent in normal anatomic position was the stent that was placed in order to allow for the left kidney to drain. A second stent, which could not be removed because of calcification, was left in place and was noted to be in a more-distal position. Extracorporeal shock wave lithotripsy was performed on the more-distal stent. After 1500 impulses at 20 joules of power, cystoscopy was performed, and the left ureteral stent was removed. At this point, the focus of the extracorporeal shock wave lithotripsy was the residual 2-cm left lower pole renal calculus; 1500 impulses at 20 joules of power were administered to the stone fragment. It appeared that there was further fragmentation of the stone. The patient will be left with the second renal stent which had been placed 1 week ago. This stent will be removed in the office setting. The patient tolerated the procedure very well. No complications were noted. Kishore [id number]
--- NOTE | 2017-07-15 08:48 | PATH ---
Surgical Pathology Report Patient Name: MARCELO WEST Med. Rec. #: [id number] /Age/Gender: 1970 (Age: 47) / F Account: [id number] Location: [facility] Taken: 07/12/2017 Received: 07/13/2017 Reported: 07/15/2017 Physicians: Jani Younger Specimen(s) Received STENT Clinical History Calculus kidney Final Diagnosis URETERAL STENT, REMOVAL: STENT(GROSS EXAM). Electronically Signed Panda Dior M.D. Gross Description Received fresh labeled "removed stent" is a 35 cm in length yoder-blue, coiled portion of tubing, consistent with a ureteral stent. No soft tissue is present. No sections are submitted, gross only. 07/13/201707/13/2017
== END 2017-07-12 21:58 | disposition home or self-care (01) ==
LOC: JASU-SURG 17:34 → J8W 21:02 → JASU-SURG 21:58
PROVIDERS: ATTEND Urology
PROC: 0TF4XZZ Fragmentation in Left Kidney Pelvis, External Approach (ICD-10-PCS; principal; 2017-07-12 18:45)
PROC: 0TP98DZ Removal of Intraluminal Device from Ureter, Via Natural or Artificial Opening Endoscopic (ICD-10-PCS; 2017-07-12 18:45)
DX: N20.0 Calculus of kidney (principal)
CPT/HCPCS: 84703; 88300-TC; 94760

== ENCOUNTER 2017-12-08 16:08 | Emergency (ER) | payer OTHER ==
[2017-12-08 16:20] VITALS: BP 119/59; PULSE 83; TEMP 98.6; BMI 25.2
--- NOTE | 2017-12-08 16:20 | PDOC ---
Rapid Medical Evaluation Time Seen by Provider: 12/08/17 16:17 Medical Evaluation: Allergies Allergy/AdvReac Type Severity Reaction Status Date / Time No Known Allergies Allergy Verified 12/08/17 16:17 I have performed a brief in-person evaluation of this patient. The patient presents with a chief complaint of: fever, sore throat, body aches x 3 days. Pertinent physical exam findings: nasal congestion, non toxic but ill appearing I have ordered the following: influenza swab The patient will proceed to the ED for further evaluation. Discharge Disposition - Diagnosis Flu-like symptoms - Referrals - Patient Instructions - Post Discharge Activity
[2017-12-08] MEDS ORDERED: KETOROLAC TROMETHAMINE 60 MG/2 ML VIAL IM ONE (18:56)
[2017-12-08] MEDS ORDERED: KETOROLAC TROMETHAMINE 60 MG/2 ML VIAL ONE (18:57)
--- NOTE | 2017-12-08 19:01 | PDOC ---
History of Present Illness - General Chief Complaint: Cold Symptoms Stated Complaint: COLD SYMPTOMS Time Seen by Provider: 12/08/17 16:17 History Source: Patient Exam Limitations: No Limitations - History of Present Illness Initial Comments: 12/08/17 18:56 Patient is here with complaints of left upper back pain status post fall against wall on Wednesday. But states onset of fevers, chills, headache sore throat pain and cough on Wednesday. MAXIMUM TEMPERATURE was 100. Is difficult to cough due to pain of back contusion. Is in Tylenol and Motrin with minimal resolved. Timing/Duration: reports: getting worse Severity: reports: moderate Associated Symptoms: reports: dizziness, fever/chills, headache, nasal congestion, nasal drainage, sore throat. denies: wheezing Past History - Travel Traveled outside of the country in the last 30 days: No Close contact w/someone who was outside of country & ill: No - Past Medical History Allergies/Adverse Reactions: Allergies Allergy/AdvReac Type Severity Reaction Status Date / Time No Known Allergies Allergy Verified 12/08/17 16:17 Home Medications: Ambulatory Orders Flecainide Acetate [Flecainide Acetate -] 50 mg PO BID 03/22/17 Anemia: Yes Asthma: No Cancer: No Cardiac Disorders: Yes (joe-had an ablation 2015) CVA: No COPD: No CHF: No Dementia: No Diabetes: No GI Disorders: No Disorders: No HTN: No Hypercholesterolemia: No Kidney Stones: Yes Liver Disease: No Seizures: No Thyroid Disease: No - Surgical History Abdominal Surgery: Yes Appendectomy: No Cardiac Surgery: Yes (ablation 09/30) Cholecystectomy: No Lung Surgery: No Neurologic Surgery: No Orthopedic Surgery: No - Suicide/Smoking/Psychosocial Hx Smoking History: Never smoked Have you smoked in the past 12 months: No Hx Alcohol Use: No Drug/Substance Use Hx: No Substance Use Type: None Hx Substance Use Treatment: No Review of Systems - Review of Systems Able to Perform ROS?: Yes Is the patient limited Lao proficient: Yes Constitutional: Yes: Symptoms Reported, See HPI, Fever, Loss of Appetite, Malaise HEENTM: Yes: Symptoms Reported, See HPI, Nose Congestion, Throat Pain Respiratory: Yes: Symptoms reported, See HPI, Cough. No: Wheezing Musculoskeletal: Yes: Symptoms Reported, See HPI Neurological: Yes: Symptoms reported, See HPI, Headache All Other Systems: Reviewed and Negative *Physical Exam - Vital Signs Last Vital Signs Temp Pulse Resp BP Pulse Ox 98.6 F 83 18 119/59 100 12/08/17 16:16 12/08/17 16:16 12/08/17 16:16 12/08/17 16:16 12/08/17 16:16 - Physical Exam General Appearance: Yes: Nourished, Appropriately Dressed, Apparent Distress, Mild Distress, Moderate Distress HEENT: positive: RACHAEL, Normal ENT Inspection, TMs Normal, Pharynx Normal (no redness, swelling or exudate) Neck: positive: Tender, Supple. negative: Lymphadenopathy (R), Lymphadenopathy (L) Respiratory/Chest: positive: Lungs Clear (no wheezing or retractions), Decreased Breath Sounds (secondary to poor inspiratory effort secondary to left chest wall pain. Oozing, swelling, no crepitus or step-offs, no reproduced tenderness along any of the posterior rib borders from scapular down to inferior aspect.). negative: Normal Breath Sounds, Respiratory Distress, Wheezing Gastrointestinal/Abdominal: positive: Normal Bowel Sounds, Soft Musculoskeletal: positive: Normal Inspection Extremity: positive: Normal Capillary Refill, Normal Inspection, Normal Range of Motion Integumentary: positive: Normal Color, Dry, Warm. 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 Upper respiratory infection resolving. With chest wall contusion. We'll treat with NSAIDs, rest and conservative measures. *DC/Admit/Observation/Transfer Diagnosis at time of Disposition: Upper respiratory infection, viral Contusion, chest wall Qualifiers: Encounter type: initial encounter Laterality: left Qualified Code(s): S20.212A - Contusion of left front wall of thorax, initial encounter - Discharge Dispostion Disposition: HOME Condition at time of disposition: Stable Admit: No - Referrals Referrals: Kassy Call MD [Primary Care Provider] - - Patient Instructions Printed Discharge Instructions: DI for Viral Upper Respiratory Infection -- Adult, DI for Rib Contusion Additional Instructions: Rest, drink lots of fluids: Teas, water, soups, Pedialyte Saltwater gargles Steamy showers/seem to face break up mucus Avoid contact with others until fevers and cough resolved Lots of handwashing and good hygiene Continue [id number] medications for symptomatic relief Tylenol or Motrin for fever and pain Followup with private physician in one to 2 days as needed Return to emergency department for worsened symptoms, fevers, dehydration - Post Discharge Activity Forms/Work/School Notes: Back to Work
== END 2017-12-08 19:05 | disposition home or self-care (01) ==
LOC: JERFT 16:08
PROC: 3E0233Z Introduction of Anti-inflammatory into Muscle, Percutaneous Approach (ICD-10-PCS; principal; 2017-12-08)
DX: J06.9 Acute upper respiratory infection, unspecified (principal); S20.212A Contusion of left front wall of thorax, initial encounter; I48.91 Unspecified atrial fibrillation; Z87.442 Personal history of urinary calculi
CPT/HCPCS: 87804; 96372; 99281-25

== ENCOUNTER 2019-04-03 07:19 | Day surgery (SDC) | payer OTHER ==
[2019-03-31 13:32] VITALS: BMI 24.0
[2019-04-03] MEDS ORDERED: DEXAMETHASONE SOD PHOSPHATE 4 MG/1 ML VIAL ONE (08:51)
[2019-04-03] MEDS ORDERED: MIDAZOLAM HCL 2 MG/2 ML SINGLE DOSE VIAL ONE ×2 (08:51)
[2019-04-03] MEDS ORDERED: KETOROLAC TROMETHAMINE 30 MG/1 ML VIAL ONE (08:51)
[2019-04-03] MEDS ORDERED: PROPOFOL 20 ML ONE (09:41)
--- NOTE | 2019-04-03 10:55 | OP ---
Operative Note - Note: Operative Date: 04/03/19 Pre-Operative Diagnosis: Left renal stone Operation: Left ESWL Findings: 7 mm Left lower pole Renal stone Surgeon: Jani Younger Anesthesia: Fractional Estimated Blood Loss (mls): 0 Operative Report Dictated: Yes
[2019-04-03 10:59] VITALS: PULSE 66
[2019-04-03 11:33] VITALS: BP 119/80; TEMP 97.4
--- NOTE | 2019-04-04 11:37 | OP ---
DATE OF OPERATION: 04/03/2019 PREOPERATIVE DIAGNOSIS: Left renal stone. POSTOPERATIVE DIAGNOSIS: Left renal stone. PROCEDURE: Left extracorporeal shock-wave lithotripsy. ATTENDING: Geni Rdz MD ANESTHESIA: Fractional. DESCRIPTION OF PROCEDURE: The patient was brought in the operating room and placed in supine position on the operating room table. Ultrasonography and fluoroscopy were performed. A 7-mm left lower pole stone was identified. Anesthesia and preoperative antibiotics were then administered. Then 2500 impulses of shock-wave lithotripsy was administered to the stone at 17 joules of power. Excellent fragmentation was noted under real time ultrasonography and fluoroscopy. No complications were noted. DISPOSITION: To recovery room. GENI RDZ M.D. [id number]
== END 2019-04-03 11:38 | disposition home or self-care (01) ==
LOC: JASU-SURG 07:19
PROVIDERS: ATTEND Urology
PROC: 0TF4XZZ Fragmentation in Left Kidney Pelvis, External Approach (ICD-10-PCS; principal; 2019-04-03 08:45)
DX: N20.0 Calculus of kidney (principal)
CPT/HCPCS: 84703

== ENCOUNTER 2019-05-01 10:11 | Day surgery (SDC) | payer OTHER | END 2019-05-01 13:45 | disposition home or self-care (01) | LOC: JOR 10:11 → JASU-SURG 13:45 ==

== ENCOUNTER 2019-07-29 18:36 | Inpatient (IN) | payer OTHER ==
[2019-07-29] MEDS ORDERED: KETOROLAC TROMETHAMINE 30 MG/1 ML VIAL IVPUSH ONE (20:06)
[2019-07-29] MEDS ORDERED: SODIUM CHLORIDE 1,000 ML IV STA (20:06)
[2019-07-29] MEDS ORDERED: ONDANSETRON 4 MG/2 ML VIAL IVPUSH ONE (20:07)
[2019-07-29] MEDS ORDERED: KETOROLAC TROMETHAMINE 30 MG/1 ML VIAL ONE (20:26)
[2019-07-29] MEDS ORDERED: ONDANSETRON 4 MG/2 ML VIAL ONE (20:27)
[2019-07-29 20:30] LABS: HEMATOCRIT 37.9 % (32.4-45.2); HEMOGLOBIN 12.5 GM/dL (10.7-15.3); LYMPH % 26.2 % (8-40); MCH 29.6 pg (25.7-33.7); MEAN CELL VOLUME 89.6 fl (80-96); MEAN PLT VOLUME 7.5 fl (7.5-11.1); MONO % 10.6 % (3.8-10.2); NEUT % 60.2 % (42.8-82.8); PLATELET COUNT 228 K/MM3 (134-434); RBC 4.23 M/mm3 (3.60-5.2); RDW 12.9 % (11.6-15.6); WHITE BLOOD COUNT 9.3 K/mm3 (4.0-10.0)
[2019-07-29 20:36] LABS: EPI CELLS 6.2 /HPF (0-5/HPF); HYALINE CASTS 7 /lpf (0-8); URINE APPEARANCE TURBID; URINE BACTERIA 167.7 /hpf (NEGATIVE); URINE BILIRUBIN NEGATIVE (NEGATIVE); URINE COLOR YELLOW; URINE GLUCOSE (UA) NEGATIVE (NEGATIVE); URINE KETONE NEGATIVE (NEGATIVE); URINE LEUK ESTERASE TRACE (NEGATIVE); URINE NITRITE NEGATIVE (NEGATIVE); URINE PROTEIN NEGATIVE (NEGATIVE); URINE RBC 218 /hpf (0-4); URINE UROBILINOGEN 0.2 mg/dL (0.2-1.0); URINE WBC 6 /hpf (0-5)
--- NOTE | 2019-07-29 20:40 | PDOC ---
History of Present Illness - General History Source: Patient Exam Limitations: No Limitations <Abbey June - Last Filed: 07/29/19 23:09> <Herlinda Ward - Last Filed: 08/04/19 16:19> - General Chief Complaint: Pain, Acute Stated Complaint: LWR BACK PAIN Time Seen by Provider: 07/29/19 19:31 Past History - Past Medical History Anemia: Yes Asthma: No Cancer: No Cardiac Disorders: Yes (aGraysonfib-had an ablation 2015) CVA: No COPD: No CHF: No Dementia: No Diabetes: No GI Disorders: No Disorders: No (RENAL CALCULI, HX ESWOL SEVERAL X'S) HTN: No Hypercholesterolemia: No Kidney Stones: Yes Liver Disease: No Seizures: No Thyroid Disease: No - Surgical History Abdominal Surgery: Yes (fibroid) Appendectomy: No Cardiac Surgery: Yes (ablation 09/30) Cholecystectomy: No Lung Surgery: No Neurologic Surgery: No Orthopedic Surgery: No - Suicide/Smoking/Psychosocial Hx Smoking History: Never smoked Have you smoked in the past 12 months: No Hx Alcohol Use: No Drug/Substance Use Hx: No Substance Use Type: None Hx Substance Use Treatment: No <Abbey June - Last Filed: 07/29/19 23:09> <Herlinda Ward - Last Filed: 08/04/19 16:19> - Past Medical History Allergies/Adverse Reactions: Allergies Allergy/AdvReac Type Severity Reaction Status Date / Time No Known Allergies Allergy Verified 07/29/19 18:40 Home Medications: Ambulatory Orders Flecainide Acetate [Flecainide Acetate -] 50 mg PO BID 03/22/17 Abd/GI Specific PMHX - Complaint Specific PMHX Colitis: No Diverticulitis: No Gall Bladder Disease: No GERD: No Hepatitis: No Irritable Bowel Synd (IBS): No Pancreatitis: No GI Ulcer Disease: No <Abbey June - Last Filed: 07/29/19 23:09> *Physical Exam - Vital Signs Last Vital Signs Temp Pulse Resp BP Pulse Ox 98.5 F 93 H 20 136/91 99 07/29/19 18:38 07/29/19 18:38 07/29/19 18:38 07/29/19 18:38 07/29/19 18:38 - Physical Exam General Appearance: No: Apparent Distress Respiratory/Chest: positive: Lungs Clear, Normal Breath Sounds. negative: Respiratory Distress Cardiovascular: positive: Regular Rhythm, Regular Rate, S1, S2. negative: Murmur Gastrointestinal/Abdominal: positive: Normal Bowel Sounds, Soft. negative: Tender, Distended, Guarding, Rebound Musculoskeletal: positive: CVA Tenderness (R) Neurologic: positive: Alert, Normal Mood/Affect <Abbey June - Last Filed: 07/29/19 23:09> - Vital Signs Last Vital Signs Temp Pulse Resp BP Pulse Ox 98.1 F 71 14 101/65 100 07/30/19 13:34 07/30/19 13:34 07/30/19 13:34 07/30/19 13:34 07/30/19 13:34 <Herlinda Ward - Last Filed: 08/04/19 16:19> ED Treatment Course - LABORATORY CBC & Chemistry Diagram: 07/29/19 20:26 07/29/19 20:26 - ADDITIONAL ORDERS Additional order review: Laboratory Results 07/29/19 07/29/19 20:26 20:26 Urine Color Yellow Urine Appearance Turbid Urine pH 8.0 Ur Specific [place] 1.014 Urine Protein Negative Urine Glucose (UA) Negative Urine Ketones Negative Urine Blood 3+ H Urine Nitrite Negative Urine Bilirubin Negative Urine Urobilinogen 0.2 Ur Leukocyte Esterase Trace Urine WBC (Auto) 6 Urine RBC (Auto) 218 Urine Casts (Auto) 7 U Epithel Cells (Auto) 6.2 Urine Bacteria (Auto) 167.7 Urine HCG, Qual Negative 07/29/19 20:26 RBC 4.23 MCV 89.6 MCHC 33.0 RDW 12.9 MPV 7.5 Neutrophils % 60.2 Lymphocytes % 26.2 D Monocytes % 10.6 H Eosinophils % 2.0 D Basophils % 1.0 - RADIOLOGY Radiology Studies Ordered: Category Date Time Status SPIRAL- RENAL-STONE CT [CT] Stat CT Scan 07/29/19 20:07 Ordered - Medications Given in the ED: ED Medications Discontinued Medications Generic Name Dose Route Start Last Admin Trade Name Freq PRN Reason Stop Dose Admin Ketorolac Tromethamine 30 mg 07/29/19 20:06 07/29/19 20:35 Toradol Injection - IVPUSH 07/29/19 20:07 30 mg ONCE ONE Administration Ondansetron HCl 4 mg 07/29/19 20:07 07/29/19 20:36 Zofran Injection IVPUSH 07/29/19 20:08 4 mg ONCE ONE Administration <Abbey June - Last Filed: 07/29/19 23:09> - LABORATORY CBC & Chemistry Diagram: 07/30/19 07:36 07/30/19 07:36 - ADDITIONAL ORDERS Additional order review: 07/29/19 20:26 Urine Culture - Final Urine - Urine Clean Catch NO GROWTH OBTAINED 07/29/19 20:26 RBC 4.23 MCV 89.6 MCHC 33.0 RDW 12.9 MPV 7.5 Neutrophils % 60.2 Lymphocytes % 26.2 D Monocytes % 10.6 H Eosinophils % 2.0 D Basophils % 1.0 - Medications Given in the ED: ED Medications Discontinued Medications Generic Name Dose Route Start Last Admin Trade Name Freq PRN Reason Stop Dose Admin Acetaminophen 1,000 mg 07/30/19 12:45 07/30/19 12:48 Ofirmev Injection - IVPB 07/30/19 12:46 1,000 mg ONCE ONE Administration Flecainide Acetate 50 mg 07/30/19 10:00 07/30/19 17:48 Tambacor - PO Not Given BID RISSA Sodium Chloride 1,000 mls @ 1,000 mls/hr 07/29/19 20:06 07/29/19 20:35 Normal Saline - IV 07/29/19 21:05 1,000 mls/hr ASDIR STA Administration Sodium Chloride 1,000 mls @ 100 mls/hr 07/30/19 02:30 07/30/19 03:37 Normal Saline - IV 100 mls/hr ASDIR RISSA Administration Lactated Ringer's 1,000 mls @ 75 mls/hr 07/30/19 12:40 07/30/19 13:35 Lactated Ringers Solution IV 75 mls/hr ASDIR RISSA Administration Ketorolac Tromethamine 30 mg 07/29/19 20:06 07/29/19 20:35 Toradol Injection - IVPUSH 07/29/19 20:07 30 mg ONCE ONE Administration Ketorolac Tromethamine 30 mg 07/30/19 02:25 07/30/19 06:31 Toradol Injection - IVPUSH 08/04/19 02:24 30 mg Q6H PRN Administration PAIN LEVEL 4 - 6 Morphine Sulfate 2 mg 07/30/19 02:25 07/30/19 08:14 Morphine Sulfate IVPUSH 2 mg Q4H PRN Administration PAIN LEVEL 7 - 10 Morphine Sulfate 2 mg 07/30/19 12:40 07/30/19 16:50 Morphine Sulfate IVPUSH 2 mg Q4H PRN Administration PAIN LEVEL 7 - 10 Ondansetron HCl 4 mg 07/29/19 20:07 07/29/19 20:36 Zofran Injection IVPUSH 07/29/19 20:08 4 mg ONCE ONE Administration Ondansetron HCl 4 mg 07/30/19 12:40 07/30/19 13:00 Zofran Injection IVPUSH 4 mg Q6H PRN Administration NAUSEA AND/OR VOMITING Tamsulosin HCl 0.4 mg 07/30/19 08:30 07/30/19 08:16 Flomax - PO 0.4 mg DAILY@0830 RISSA Administration <Herlinda Ward - Last Filed: 08/04/19 16:19> Medical Decision Making - Medical Decision Making 49 y/o F hx of kidney stones (on left side, s/p lithotripsy and stent with removal in the past), afib (on Flecainide, not on AC, s/p ablation Sep 2016) presents with R flank pain and nausea from 2 PM today. States symptoms feel just like her kidney stones in the past and believes she may have passed a small stone too, but still with some pain. Denies fever, sob, cp, vomiting, diarrhea, dysuria, hematuria. Probable kidney stones Plan: labs, IVF, toradol, spiral CT 07/29/19 20:38 Patient more comfortable on reassessment Abnormal Lab Results 07/29/19 07/29/19 07/29/19 20:26 20:26 20:26 Monocytes % 10.6 H Anion Gap 4 L BUN 20.4 H AST 13 L Urine Blood 3+ H Spiral CT results: Minimal atelectasis and scarring in lung bases. No pleural effusions. Small hiatal hernia. The liver, contracted gallbladder, pancreas, adrenal glands, and spleen are grossly unremarkable. *Mild right hydronephrosis due to a 5 mm x 4 mm x 7 mm calculus in the proximal right ureter at the level of L3-L4. Additional small bilateral intrarenal calculi. No AAA. No evidence for diverticulitis, appendicitis, small bowel obstruction, free fluid, or free air. Attempted to reach patient's urologist, Dr. Travis but unable to get in touch ; spoke to his who requested calling Dr. Kwon Spoke to urologist, Dr. Kwon, who recommended admission 07/29/19 23:07 <Abbey June - Last Filed: 07/29/19 23:09> *DC/Admit/Observation/Transfer - Discharge Dispostion Decision to Admit order: Yes <Abbey June - Last Filed: 07/29/19 23:09> - Attestations Physician Attestion: I reviewed the case with the mid-level practitioner and agree with the mid- level practitioner's assessment, diagnosis and disposition. <Herlinda Ward - Last Filed: 08/04/19 16:19> Diagnosis at time of Disposition: Right kidney stone - Discharge Dispostion Disposition: AGAINST MEDICAL ADVICE Condition at time of disposition: Fair
[2019-07-29 20:58] LABS: ALBUMIN 3.9 g/dl (3.4-5.0); BILIRUBIN,TOTAL 0.3 mg/dL (0.2-1); BLOOD UREA NITROGEN 20.4 mg/dL (7-18); CALCIUM 9.3 mg/dL (8.5-10.1); CREATININE 0.9 mg/dL (0.55-1.3); POTASSIUM 3.6 mmol/L (3.5-5.1); TOT PROT 6.8 g/dl (6.4-8.2)
--- NOTE | 2019-07-29 23:43 | PN ---
Teaching Attending Note Name of Resident: Hilda Sexton ATTENDING PHYSICIAN STATEMENT I saw and evaluated the patient. I reviewed the resident's note and discussed the case with the resident. I agree with the resident's findings and plan as documented. SUBJECTIVE: Patient is a 49 year old woman with PMH of Kidney stones (on left side, s/p lithotripsy and stent with removal in the past), and Afib (on Flecainide, not on AC, s/p ablation Sep 2016), who presents with right flank pain and nausea from 2 PM today. States symptoms feel just like her kidney stones in the past and believes she may have passed a small stone too, but still with some pain. Denies fever, SOB, chest pain, vomiting, diarrhea, dysuria or gross hematuria. Denies tobacco use, alcohol or illicit drug use. No recent travel or sick contacts. No FH of kidney stones but her mother has Afib. 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 OBJECTIVE: Alert Vital Signs Period Temp Pulse Resp BP Sys/Rojas Pulse Ox Last 24 Hr 98.5 F 93 20 136/91 99 HEENT: No Jaundice, eye redness or discharge, PERRLA, EOMI. Normocephalic, atraumatic. External ears are normal and hearing is grossly intact. No nasal discharge. Neck: Supple, nontender. No palpable adenopathy or thyromegaly. No JVD Chest: Good effort. Clear to auscultation and percussion. Heart: Regular. No S3, rub or murmur Abdomen: Not distended, soft, right CVA/flank tenderness; no HSM. No rebound or guarding. Normal bowel sounds. Ext: Peripheral pulses intact. No leg edema. Skin: Warm and dry. No petechiae, rash or ecchymosis. Neuro: Alert. Oriented x3. CN 2-12 grossly intact. Sensation grossly intact in all four extremities and DTR are symmetric. Psych: Appropriate mood and affect. Good insight. Home Medications Medication Instructions Recorded Flecainide Acetate [Flecainide 50 mg PO BID 03/22/17 Acetate -] Abnormal Lab Results 07/29/19 07/29/19 07/29/19 20:26 20:26 20:26 Monocytes % 10.6 H Anion Gap 4 L BUN 20.4 H AST 13 L Urine Blood 3+ H ASSESSMENT AND PLAN: 1. Kidney stones/Hematuria - Spiral CT scan of abdomen and pelvis showed "mild right hydronephrosis due to a 5 mm x 4 mm x 7 mm calculus in the proximal right ureter at the level of L3-L4. Additional small bilateral intrarenal calculi. Minimal atelectasis and scarring in lung bases. No pleural effusions. Small hiatal hernia. The liver, contracted gallbladder, pancreas, adrenal glands, and spleen are grossly unremarkable. No AAA. No evidence for diverticulitis, appendicitis, small bowel obstruction, free fluid, or free air." ER staff consulted urologist, Dr. Kwon. EKG shows NSR with no significant ST-T wave changes. Will treat with IV NS, IV Toradol, IV Zofran, Flomax and use morphine for breakthrough pain and strain her urine. Will keep her NPO. Will continue comprehensive care of all her comorbid conditions including flecanide for Afib. Repeat UA in the morning. 2. DVT prophylaxis - SCD 3. Advance directives - Full code
--- NOTE | 2019-07-30 01:10 | HP ---
CHIEF COMPLAINT: right side back pain Urologist: Dr. Travis Cards: Dr. Khanna HISTORY OF PRESENT ILLNESS: Ms. Iglesias is a 49y/o female with history of nephrolithiasis s/p lithotripsy and stent placement and removal as well as paroxysmal atrial fibrillation s/p ablation not on anti-coagulation who presents with right side flank pain. The pain began suddenly at 2:00pm on 07/29/19 located in the right flank radiating through the right abdomen to midline. She reports sharp and colicky in nature with 10/10 max pain. She reports lying down improves the pain and moving around makes it worse. She reports nausea, bloating, chills, fever, and urinary frequency the night before. She denies hematuria and dysuria. LMP was October 2018 when she had endometrial ablation done for heavy periods. Pt has 5 children. She has history of stones for the last 3 years approximately and was supposed to undergo lithotripsy last month but had to cancel. No family history of stones. ER course was notable for: (1) UA +3 blood, trace leuk esterase (2) CT mild right hydronephrosis due to [id number] calculus in proximal right ureter with additional small bilateral intrarenal calculi (3) administered Toradol, Zofran, 1L bolus NS (4) EKG NSR HR 67 QTc 454 Recent Travel: none PAST MEDICAL HISTORY: left side nephrolithiasis s/p lithotripsy and stent placement and removal paroxysmal atrial fibrillation s/p ablation 2015 PAST SURGICAL HISTORY: x 2 Social History: Smoking: denies Alcohol: denies Drugs: denies Pt lives at home with 3 of her sons. 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 Family History: mother- a-fib no hx of nephrolithiasis Allergies No Known Allergies Allergy (Verified 07/29/19 18:40) HOME MEDICATIONS: Home Medications Medication Instructions Recorded Flecainide Acetate [Flecainide 50 mg PO BID 03/22/17 Acetate -] REVIEW OF SYSTEMS CONSTITUTIONAL: Present: fever, chills Absent: diaphoresis, generalized weakness HEENT: Absent: rhinorrhea, nasal congestion CARDIOVASCULAR: Absent: chest pain, palpitations, irregular heart beat RESPIRATORY: Absent: SOB, wheezing GASTROINTESTINAL: Present: abdominal pain, nausea Absent: vomiting, diarrhea, constipation GENITOURINARY: Present: flank pain, frequency Absent: dysuria, hematuria MUSCULOSKELETAL: Present: back pain SKIN: Absent: rash, itching, pallor HEMATOLOGIC/IMMUNOLOGIC: Absent: easy bleeding, easy bruising, lymphadenopathy, frequent infections ENDOCRINE: Absent: unexplained weight gain, unexplained weight loss, heat intolerance, cold intolerance NEUROLOGIC: Absent: headache, bladder or bowel incontinence PSYCHIATRIC: Absent: anxiety, depression, suicidal or homicidal ideation, hallucinations. PHYSICAL EXAMINATION Vital Signs - 24 hr 07/29/19 18:38 Temperature 98.5 F Pulse Rate 93 H Respiratory 20 Rate Blood Pressure 136/91 O2 Sat by Pulse 99 Oximetry (%) GENERAL: Awake, alert, and fully oriented, in no acute distress. HEAD: Normal with no signs of trauma. EYES: Pupils equal, round and reactive to light, extraocular movements intact, sclera anicteric, conjunctiva clear. No lid lag. EARS, NOSE, THROAT: Ears normal, nares patent, Moist mucous membranes. NECK: Normal range of motion, supple without lymphadenopathy, JVD, or masses. LUNGS: Breath sounds equal, clear to auscultation bilaterally. No wheezes, and no crackles. No accessory muscle use. HEART: Regular rate and rhythm, systolic murmur 3/6 ABDOMEN: Soft, nontender, not distended, hyperactive bowel sounds, no guarding, no rebound MUSCULOSKELETAL: Normal range of motion at all joints. No bony deformities or tenderness. Right side CVA tenderness UPPER EXTREMITIES: 2+ pulses, warm, well-perfused. No cyanosis. No clubbing. No peripheral edema. LOWER EXTREMITIES: 2+ pulses, warm, well-perfused. No calf tenderness. No peripheral edema. NEUROLOGICAL: Cranial nerves II-XII intact. Normal speech. PSYCHIATRIC: Cooperative. Good eye contact. Appropriate mood and affect. SKIN: Warm, dry, normal turgor, no rashes or lesions noted, normal capillary refill. Laboratory Results - last 24 hr 07/29/19 07/29/19 07/29/19 20:26 20:26 20:26 WBC 9.3 RBC 4.23 Hgb 12.5 Hct 37.9 MCV 89.6 MCH 29.6 MCHC 33.0 RDW 12.9 Plt Count 228 MPV 7.5 Absolute Neuts (auto) 5.6 Neutrophils % 60.2 Lymphocytes % 26.2 D Monocytes % 10.6 H Eosinophils % 2.0 D Basophils % 1.0 Nucleated RBC % 0 Sodium 141 Potassium 3.6 Chloride 106 Carbon Dioxide 32 Anion Gap 4 L BUN 20.4 H Creatinine 0.9 Est GFR (CKD-EPI)AfAm 87.63 Est GFR (CKD-EPI)NonAf 75.61 Random Glucose 90 Calcium 9.3 Total Bilirubin 0.3 AST 13 L ALT 23 Alkaline Phosphatase 70 Total Protein 6.8 Albumin 3.9 Urine Color Urine Appearance Urine pH Ur Specific [place] Urine Protein Urine Glucose (UA) Urine Ketones Urine Blood Urine Nitrite Urine Bilirubin Urine Urobilinogen Ur Leukocyte Esterase Urine WBC (Auto) Urine RBC (Auto) Urine Casts (Auto) U Epithel Cells (Auto) Urine Bacteria (Auto) Urine HCG, Qual Negative 07/29/19 20:26 WBC RBC Hgb Hct MCV MCH MCHC RDW Plt Count MPV Absolute Neuts (auto) Neutrophils % Lymphocytes % Monocytes % Eosinophils % Basophils % Nucleated RBC % Sodium Potassium Chloride Carbon Dioxide Anion Gap BUN Creatinine Est GFR (CKD-EPI)AfAm Est GFR (CKD-EPI)NonAf Random Glucose Calcium Total Bilirubin AST ALT Alkaline Phosphatase Total Protein Albumin Urine Color Yellow Urine Appearance Turbid Urine pH 8.0 Ur Specific [place] 1.014 Urine Protein Negative Urine Glucose (UA) Negative Urine Ketones Negative Urine Blood 3+ H Urine Nitrite Negative Urine Bilirubin Negative Urine Urobilinogen 0.2 Ur Leukocyte Esterase Trace Urine WBC (Auto) 6 Urine RBC (Auto) 218 Urine Casts (Auto) 7 U Epithel Cells (Auto) 6.2 Urine Bacteria (Auto) 167.7 Urine HCG, Qual ASSESSMENT/PLAN: Ms. Iglesias is a 49 y/o female with history of nephrolithiasis s/p lithotripsy and stent placement and removal as well as paroxysmal atrial fibrillation s/p ablation not on anti-coagulation who presents with sudden onset sharp and colicky right side flank pain. #obstructive nephrolithiasis with mild hydronephrosis Pt has hx of stones on left side over the last few years. CT showed mild right hydronephrosis due to [id number] calculus in proximal right ureter with additional small bilateral intrarenal calculi. UA showed +3 blood, trace leuk esterase, pH 8.0. -Toradol 30mg Q6H PRN pain -morphine 2mg Q4H PRN breakthrough pain -Flomax 0.4mg daily -NS 100mL/hr -NPO for possible procedure -repeat urinalysis since pH of 8.0 may be indicative of early infection -urology (Dr. Kwon) consulted by ED -monitor urine output and strain for stones -CBC, CMP -f/u outpatient workup for stone composition #paroxysmal atrial fibrillation Pt had ablation which she reports worked on certain foci but new foci have come up since procedure. She is currently not on anti-coagulation. -continue home flecainide 50mg BID -avoid Zofran for QTc prolongation, consider alternative anti-emetics if needed FEN NS 100mL/hr monitor labs NPO for possible procedure DVT Ppx SCDs, consider pharmacological anti-coagulation following possible procedure dispo med/surg floor Visit type - Emergency Visit Emergency Visit: Yes ED Registration Date: 07/29/19 Care time: The patient presented to the Emergency Department on the above date and was hospitalized for further evaluation of their emergent condition. - New Patient This patient is new to me today: Yes Date on this admission: 07/30/19 - Critical Care Critical Care patient: No ATTENDING PHYSICIAN STATEMENT I saw and evaluated the patient. I reviewed the resident's note and discussed the case with the resident. I agree with the resident's findings and plan as documented. SUBJECTIVE: OBJECTIVE: ASSESSMENT AND PLAN:
[2019-07-30] MEDS ORDERED: KETOROLAC TROMETHAMINE 15 MG/ML VIAL IVPUSH PRN (02:25)
[2019-07-30] MEDS ORDERED: MORPHINE SULFATE 2 MG/ML VIAL IVPUSH PRN ×2 (02:25→12:40)
[2019-07-30] MEDS ORDERED: SODIUM CHLORIDE 1,000 ML IV SCH ×2 (02:30→12:40)
[2019-07-30 03:51] VITALS: BMI 25.4
[2019-07-30 08:22] LABS: BASO % 0.7 % (0-2.0); HEMATOCRIT 34.7 % (32.4-45.2); HEMOGLOBIN 11.7 GM/dL (10.7-15.3); LYMPH % 37.8 % (8-40); MCHC 33.7 g/dl (32.0-36.0); MEAN PLT VOLUME 7.5 fl (7.5-11.1); MONO % 10.3 % (3.8-10.2); NEUT % 48.2 % (42.8-82.8); PLATELET COUNT 193 K/MM3 (134-434); RBC 3.89 M/mm3 (3.60-5.2); RDW 13.3 % (11.6-15.6); WHITE BLOOD COUNT 5.6 K/mm3 (4.0-10.0)
[2019-07-30] MEDS ORDERED: TAMSULOSIN HCL 0.4 MG CAP PO SCH (08:30)
[2019-07-30 08:41] LABS: ALBUMIN 3.6 g/dl (3.4-5.0); BILIRUBIN,TOTAL 0.9 mg/dL (0.2-1); BLOOD UREA NITROGEN 16.6 mg/dL (7-18); CALCIUM 8.9 mg/dL (8.5-10.1); CREATININE 0.7 mg/dL (0.55-1.3); MAGNESIUM 2.3 mg/dL (1.8-2.4); PHOSPHOROUS 3.1 mg/dL (2.5-4.9); POTASSIUM 3.8 mmol/L (3.5-5.1); TOT PROT 6.2 g/dl (6.4-8.2)
[2019-07-30] MEDS ORDERED: PT OWN MED DRAWER 7, Y5N ONE ×3 (09:56→14:22)
[2019-07-30] MEDS ORDERED: FLECAINIDE ACETATE 50 MG TABLET PO SCH ×2 (10:00→22:00)
[2019-07-30] MEDS ORDERED: FLECAINIDE ACETATE 50 MG PO SCH (10:00)
[2019-07-30 10:24] LABS: EPI CELLS 20.9 /HPF (0-5/HPF); HYALINE CASTS 38 /lpf (0-8); URINE APPEARANCE TURBID; URINE BACTERIA 1431.1 /hpf (NEGATIVE); URINE BILIRUBIN NEGATIVE (NEGATIVE); URINE COLOR YELLOW; URINE GLUCOSE (UA) NEGATIVE (NEGATIVE); URINE KETONE NEGATIVE (NEGATIVE); URINE LEUK ESTERASE 3+ (NEGATIVE); URINE NITRITE NEGATIVE (NEGATIVE); URINE PROTEIN TRACE (NEGATIVE); URINE RBC 151 /hpf (0-4); URINE UROBILINOGEN 0.2 mg/dL (0.2-1.0); URINE WBC 59 /hpf (0-5)
--- NOTE | 2019-07-30 10:55 | CON.GU ---
Consult Consult Specialty:: Referred by:: Clement Reason for Consultation:: R ureteral calculus - History of Present Illness Chief Complaint: R flank pain History of Present Illness: 49y/o female with history of nephrolithiasis s/p lithotripsy and stent placement and removal as well as paroxysmal atrial fibrillation s/p ablation not on anti-coagulation who presents with right side flank pain. The pain began suddenly at 2:00pm on 07/29/19 located in the right flank radiating through the right abdomen to midline. She reports sharp and colicky in nature with 10/10 max pain. She reports lying down improves the pain and moving around makes it worse. She reports nausea, bloating, chills, fever, and urinary frequency the night before. She denies hematuria and dysuria. LMP was October 2018 when she had endometrial ablation done for heavy periods. Pt has 5 children. She has history of stones for the last 3 years approximately and was supposed to undergo lithotripsy last month but had to cancel. No family history of stones. cons req. ER course was notable for: (1) UA +3 blood, trace leuk esterase (2) CT mild right hydronephrosis due to [id number] calculus in proximal right ureter with additional small bilateral intrarenal calculi (3) administered Toradol, Zofran, 1L bolus NS (4) EKG NSR HR 67 QTc 454 Recent Travel: none PAST MEDICAL HISTORY: left side nephrolithiasis s/p lithotripsy and stent placement and removal paroxysmal atrial fibrillation s/p ablation 2015 PAST SURGICAL HISTORY: x 2 - History Source History Provided By: Patient - Past Medical History Cardio/Vascular: Yes: AFIB ...LMP: 10/15/19 - Alcohol/Substance Use Hx Alcohol Use: No - Smoking History Smoking history: Never smoked Have you smoked in the past 12 months: No Home Medications - Allergies Allergies/Adverse Reactions: Allergies Allergy/AdvReac Type Severity Reaction Status Date / Time No Known Allergies Allergy Verified 07/29/19 18:40 - Home Medications Home Medications: Ambulatory Orders Flecainide Acetate [Flecainide Acetate -] 50 mg PO BID 03/22/17 Review of Systems - Review of Systems Genitourinary: reports: Flank Pain, Frequency, Pain Physical Exam- Vital Signs: Vital Signs Temperature 98.6 F 07/30/19 09:01 Pulse Rate 85 07/30/19 09:01 Respiratory Rate 18 07/30/19 09:01 Blood Pressure 132/86 07/30/19 09:01 O2 Sat by Pulse Oximetry (%) 100 07/30/19 03:59 Constitutional: Yes: Well Nourished, No Distress, Calm Cardiovascular: Yes: Murmur Gastrointestinal: Yes: Soft, Tenderness (RUQ) Renal/: Yes: CVA Tenderness - Right. No: Bladder Distention Kidneys: Yes: FLank Pain Right Pelvis: Yes: WNL External Genitalia: Yes: WNL Musculoskeletal: Yes: WNL Extremities: Yes: WNL Labs: CBC, BMP 07/30/19 07:36 07/30/19 07:36 Imaging - Results Cat Scan: Report Reviewed, Image Reviewed Problem List - Problems (1) Ureteral calculus, right Assessment/Plan: ivfs, tamsulosin, rocephin, cysto R JJ stent insertion Code(s): N20.1 - CALCULUS OF URETER (2) Hydronephrosis concurrent with and due to calculi of kidney and ureter Code(s): N13.2 - HYDRONEPHROSIS WITH RENAL AND URETERAL CALCULOUS OBSTRUCTION (3) Renal calculus Code(s): N20.0 - CALCULUS OF KIDNEY
--- NOTE | 2019-07-30 11:06 | OP ---
Operative Note - Note: Operative Date: 07/30/19 Pre-Operative Diagnosis: R ureteral calculus, R hydronephrosis Operation: cystoscopy and R JJ stent insertion Findings: radiolucent 7 mm R proximal ureteral calculus w mild R hydronephrosis, bilat renal calculi Post-Operative Diagnosis: Same as Pre-op Surgeon: Tom Kwon Anesthesiologist/SIGN WIRER: Liang Caceres Anesthesia: General Estimated Blood Loss (mls): 0 Drains & Tubes with Location: 6 fr 24 cm R JJ stent Operative Report Dictated: Yes
[2019-07-30] MEDS ORDERED: CEFTRIAXONE 1 GM in DEXTROSE 5%-WATER - 50 ML IVPB SCH (11:15)
[2019-07-30] MEDS ORDERED: cefTRIAXone SODIUM 1 GM VIAL ONE (11:27)
[2019-07-30] MEDS ORDERED: DEXTROSE 5%-WATER - 50 ML IVPB ONE (11:27)
[2019-07-30] MEDS ORDERED: ONDANSETRON 4 MG/2 ML VIAL IVPUSH PRN ×2 (11:53→12:40)
[2019-07-30] MEDS ORDERED: MIDAZOLAM HCL 2 MG/2 ML SINGLE DOSE VIAL ONE (11:58)
[2019-07-30] MEDS ORDERED: PROPOFOL 20 ML ONE ×3 (11:59→12:10)
[2019-07-30] MEDS ORDERED: LACTATED RINGERS SOLUTION 1,000 ML IV SCH ×2 (12:00→12:40)
[2019-07-30] MEDS ORDERED: cefTRIAXone SODIUM 1 GM VIAL IVPB ONE (12:02)
[2019-07-30] MEDS ORDERED: KETOROLAC TROMETHAMINE 30 MG/1 ML VIAL ONE (12:12)
[2019-07-30] MEDS ORDERED: DEXAMETHASONE SOD PHOSPHATE 4 MG/1 ML VIAL ONE ×2 (12:12)
[2019-07-30] MEDS ORDERED: KETOROLAC TROMETHAMINE 30 MG/1 ML VIAL IVPUSH PRN (12:40)
[2019-07-30] MEDS ORDERED: ACETAMINOPHEN INJECTION 100 ML IVPB ONE (12:41)
[2019-07-30] MEDS ORDERED: ACETAMINOPHEN 1000 MG/100 ML VIAL (NON FORMULARY) IVPB ONE (12:45)
[2019-07-30] MEDS ORDERED: ONDANSETRON 4 MG/2 ML VIAL ONE (13:02)
--- NOTE | 2019-07-30 13:11 | OP ---
DATE OF OPERATION: 07/30/2019 PREOPERATIVE DIAGNOSES: Right ureteral calculus, right hydronephrosis, bilateral renal calculi. POSTOPERATIVE DIAGNOSES: Right ureteral calculus, right hydronephrosis, bilateral renal calculi. PROCEDURE: Cystoscopy, right double-J stent insertion. SURGEON: Tom Kwon MD DRIVER'S EDUCATION INSTRUCTOR: None. ANESTHESIA: General via mask. ANESTHESIOLOGIST: Liang Caceres MD SPECIMENS: None. CULTURES: None. DRAINS: A 6-Mexican 24-cm right double-J stent. ESTIMATED BLOOD LOSS: None. COMPLICATION: None. PROCEDURE: The patient was brought in the operating room, placed on the operating table in the supine position. After administration of general anesthesia via laryngeal mask, intravenous antibiotics were administered, sequential compression devices were placed. The patient was placed in the dorsal lithotomy position. The vagina and perineum were prepped and draped in the usual sterile manner. A 22-Mexican cystoscope was inserted into the bladder with the obturator in place. The obturator was removed and urine was evacuated. A 30-degree telescope was inserted and cystoscopy was performed. This demonstrated no foreign bodies, tumors, stones, inflammation. Both ureteral orifices were in the usual location with diminished efflux from the right ureteral orifice. The right ureteral orifice was cannulated with a 0.038 guidewire, which was advanced to the level of the right renal pelvis under fluoroscopic and direct visual guidance. A dual-lumen catheter was inserted. Retrograde pyelogram was done, demonstrated moderate right hydronephrosis. No clear ureteral calculi could be seen. On medical certification specialist image, the ureteral calculus appeared radiolucent. Now the dual-lumen catheter was removed and a 6-Mexican 24-cm right double-J stent was inserted over the guidewire under direct visual and fluoroscopic guidance, leaving 1 coil in the renal pelvis and 1 coil in the bladder. The bladder was emptied, cystoscope removed. She tolerated the procedure well, was transferred to recovery room in stable condition. PLAN: Follow up in the office next week to schedule right ureteroscopic laser lithotripsy, double-J stent change. Kishore [id number]
--- NOTE | 2019-07-30 14:42 | PN ---
Progress Note (short form) - Note Progress Note: SUBJECTIVE: Ongoing R Flank pain and nausea. No vomiting/fevers. No dysuria. Hematuria+. OBJECTIVE: Afebrile, Hemodynamically stable. Last Vital Signs Temp Pulse Resp BP Pulse Ox 98.1 F 71 14 101/65 100 07/30/19 13:34 07/30/19 13:34 07/30/19 13:34 07/30/19 13:34 07/30/19 13:34 HEENT - Atramatic, Normocephalic. Heart - S1, S2, RRR Lungs - clear to auscultation Abdomen - Soft, R flank and CVA tenderness. Bowel Sounds normal. Extremities - no edema, no calf tenderness. Neuro - AAO x 3. Tone/Power normal. Laboratory Results - last 24 hr 07/29/19 07/29/19 07/29/19 20:26 20:26 20:26 WBC 9.3 RBC 4.23 Hgb 12.5 Hct 37.9 MCV 89.6 MCH 29.6 MCHC 33.0 RDW 12.9 Plt Count 228 MPV 7.5 Absolute Neuts (auto) 5.6 Neutrophils % 60.2 Lymphocytes % 26.2 D Monocytes % 10.6 H Eosinophils % 2.0 D Basophils % 1.0 Nucleated RBC % 0 Sodium 141 Potassium 3.6 Chloride 106 Carbon Dioxide 32 Anion Gap 4 L BUN 20.4 H Creatinine 0.9 Est GFR (CKD-EPI)AfAm 87.63 Est GFR (CKD-EPI)NonAf 75.61 Random Glucose 90 Calcium 9.3 Phosphorus Magnesium Total Bilirubin 0.3 AST 13 L ALT 23 Alkaline Phosphatase 70 Total Protein 6.8 Albumin 3.9 Urine Color Urine Appearance Urine pH Ur Specific [place] Urine Protein Urine Glucose (UA) Urine Ketones Urine Blood Urine Nitrite Urine Bilirubin Urine Urobilinogen Ur Leukocyte Esterase Urine WBC (Auto) Urine RBC (Auto) Urine Casts (Auto) U Epithel Cells (Auto) Urine Bacteria (Auto) Urine HCG, Qual Negative 07/29/19 07/30/19 07/30/19 20:26 07:36 07:36 WBC 5.6 RBC 3.89 Hgb 11.7 Hct 34.7 MCV 89.0 MCH 30.0 MCHC 33.7 RDW 13.3 Plt Count 193 MPV 7.5 Absolute Neuts (auto) 2.7 Neutrophils % 48.2 Lymphocytes % 37.8 D Monocytes % 10.3 H Eosinophils % 3.0 Basophils % 0.7 Nucleated RBC % 0 Sodium 144 Potassium 3.8 Chloride 111 H Carbon Dioxide 29 Anion Gap 4 L BUN 16.6 Creatinine 0.7 Est GFR (CKD-EPI)AfAm 118.74 Est GFR (CKD-EPI)NonAf 102.45 Random Glucose 94 Calcium 8.9 Phosphorus 3.1 Magnesium 2.3 Total Bilirubin 0.9 AST 13 L ALT 21 Alkaline Phosphatase 65 Total Protein 6.2 L Albumin 3.6 Urine Color Yellow Urine Appearance Turbid Urine pH 8.0 Ur Specific [place] 1.014 Urine Protein Negative Urine Glucose (UA) Negative Urine Ketones Negative Urine Blood 3+ H Urine Nitrite Negative Urine Bilirubin Negative Urine Urobilinogen 0.2 Ur Leukocyte Esterase Trace Urine WBC (Auto) 6 Urine RBC (Auto) 218 Urine Casts (Auto) 7 U Epithel Cells (Auto) 6.2 Urine Bacteria (Auto) 167.7 Urine HCG, Qual 07/30/19 10:00 WBC RBC Hgb Hct MCV MCH MCHC RDW Plt Count MPV Absolute Neuts (auto) Neutrophils % Lymphocytes % Monocytes % Eosinophils % Basophils % Nucleated RBC % Sodium Potassium Chloride Carbon Dioxide Anion Gap BUN Creatinine Est GFR (CKD-EPI)AfAm Est GFR (CKD-EPI)NonAf Random Glucose Calcium Phosphorus Magnesium Total Bilirubin AST ALT Alkaline Phosphatase Total Protein Albumin Urine Color Yellow Urine Appearance Turbid Urine pH 7.0 Ur Specific [place] 1.012 Urine Protein Trace Urine Glucose (UA) Negative Urine Ketones Negative Urine Blood 2+ H Urine Nitrite Negative Urine Bilirubin Negative Urine Urobilinogen 0.2 Ur Leukocyte Esterase 3+ H Urine WBC (Auto) 59 Urine RBC (Auto) 151 Urine Casts (Auto) 38 U Epithel Cells (Auto) 20.9 Urine Bacteria (Auto) 1431.1 Urine HCG, Qual Current Medications Generic Name Dose Route Start Last Admin Trade Name Freq PRN Reason Stop Dose Admin Fentanyl 50 mcg 07/30/19 12:40 Sublimaze Injection - IVPUSH [id number] PRN PAIN-PACU ORDER X 4 DOSES ONLY Flecainide Acetate 50 mg 07/30/19 22:00 Tambacor - PO BID [facility] Ceftriaxone Sodium 1 gm/ 50 mls @ 100 mls/hr 07/31/19 10:00 Dextrose IVPB DAILY [facility] Protocol Lactated Ringer's 1,000 mls @ 75 mls/hr 07/30/19 12:40 07/30/19 13:35 Lactated Ringers Solution IV 75 mls/hr ASDIR RISSA Administration Ketorolac Tromethamine 30 mg 07/30/19 12:40 Toradol Injection - IVPUSH 08/04/19 02:24 Q6H PRN PAIN LEVEL 4 - 6 Morphine Sulfate 2 mg 07/30/19 12:40 Morphine Sulfate IVPUSH Q4H PRN PAIN LEVEL 7 - 10 Ondansetron HCl 4 mg 07/30/19 12:40 07/30/19 13:00 Zofran Injection IVPUSH 4 mg Q6H PRN Administration NAUSEA AND/OR VOMITING Tamsulosin HCl 0.4 mg 07/31/19 08:30 Flomax - PO DAILY@0830 [facility] Home Medications Medication Instructions Recorded Flecainide Acetate [Flecainide 50 mg PO BID 03/22/17 Acetate -] ASSESSMENT/PLAN 49 year old female with history of L Nephrolithiasis s/p Stent placement/removal , paroxysmal atrial fibrillation s/p ablation (not on anticoagulation), CT A/P - showed mild right hydronephrosis due to [id number] calculus in proximal right ureter with additional small bilateral intrarenal calculi. Awaiting official report. 1. Nephrolithiasis with Obstruction and Hydronephrosis Evaluated by urology and taken to OR for Cystoscopy and R JJ stent placement. Started on Flomax and analgesia/anti-emetic. Afebrile, hemodynamically stable. On empiric Ceftriaxone by Urology. Urine Cx pending. Ongoing hematuria - will monitor. 2. Paroxysmal Atrial Fibrillation s/p ablation Continue Flecainide. DVT Px - SCDs given ongoing hematuria. Visit type - Emergency Visit Emergency Visit: Yes ED Registration Date: 07/29/19 Care time: The patient presented to the Emergency Department on the above date and was hospitalized for further evaluation of their emergent condition. - New Patient This patient is new to me today: Yes Date on this admission: 07/30/19 - Critical Care Critical Care patient: No - Discharge Referral Referred to [facility] Med [facility] No
[2019-07-30 15:20] VITALS: BP 101/65; PULSE 71; TEMP 98.1
--- NOTE | 2019-07-30 16:49 | EKG ---
Test Reason : Blood Pressure : / mmHG Vent. Rate : 067 BPM Atrial Rate : 067 BPM P-R Int : 110 ms QRS Dur : 080 ms QT Int : 430 ms P-R-T Axes : 033 039 043 degrees QTc Int : 454 ms SINUS RHYTHM WITH SHORT DE OTHERWISE NORMAL ECG WHEN COMPARED WITH ECG OF 24-MAR-2017 09:46, NO SIGNIFICANT CHANGE WAS FOUND Confirmed by MD CHOWDHURY MOYSES ([id number]) on 07/30/2019 4:49:02 PM Referred By: Confirmed By:SABINA CHOWDHURY MD
--- NOTE | 2019-07-30 17:36 | DS ---
Physical Exam: SUBJECTIVE: Reports improved R Flank pain and resolution of nausea s/p cystoscopy and R JJ stent placement. No vomiting/fevers. No dysuria. Hematuria+. OBJECTIVE: Afebrile, Hemodynamically stable. Last Vital Signs Temp Pulse Resp BP Pulse Ox 98.1 F 71 14 101/65 100 07/30/19 13:34 07/30/19 13:34 07/30/19 13:34 07/30/19 13:34 07/30/19 13:34 HEENT - Atraumatic, Normocephalic. Heart - S1, S2, RRR Lungs - clear to auscultation Abdomen - Soft, some residual R flank and mild CVA tenderness - better than on earlier exam prior to JJ stent insertion. Bowel Sounds normal. Extremities - no edema, no calf tenderness. Neuro - AAO x 3. Tone/Power normal all extremities. Laboratory Results - last 24 hr 07/29/19 07/29/19 07/29/19 20:26 20:26 20:26 WBC 9.3 RBC 4.23 Hgb 12.5 Hct 37.9 MCV 89.6 MCH 29.6 MCHC 33.0 RDW 12.9 Plt Count 228 MPV 7.5 Absolute Neuts (auto) 5.6 Neutrophils % 60.2 Lymphocytes % 26.2 D Monocytes % 10.6 H Eosinophils % 2.0 D Basophils % 1.0 Nucleated RBC % 0 Sodium 141 Potassium 3.6 Chloride 106 Carbon Dioxide 32 Anion Gap 4 L BUN 20.4 H Creatinine 0.9 Est GFR (CKD-EPI)AfAm 87.63 Est GFR (CKD-EPI)NonAf 75.61 Random Glucose 90 Calcium 9.3 Phosphorus Magnesium Total Bilirubin 0.3 AST 13 L ALT 23 Alkaline Phosphatase 70 Total Protein 6.8 Albumin 3.9 Urine Color Urine Appearance Urine pH Ur Specific Only Urine Protein Urine Glucose (UA) Urine Ketones Urine Blood Urine Nitrite Urine Bilirubin Urine Urobilinogen Ur Leukocyte Esterase Urine WBC (Auto) Urine RBC (Auto) Urine Casts (Auto) U Epithel Cells (Auto) Urine Bacteria (Auto) Urine HCG, Qual Negative 07/29/19 07/30/19 07/30/19 20:26 07:36 07:36 WBC 5.6 RBC 3.89 Hgb 11.7 Hct 34.7 MCV 89.0 MCH 30.0 MCHC 33.7 RDW 13.3 Plt Count 193 MPV 7.5 Absolute Neuts (auto) 2.7 Neutrophils % 48.2 Lymphocytes % 37.8 D Monocytes % 10.3 H Eosinophils % 3.0 Basophils % 0.7 Nucleated RBC % 0 Sodium 144 Potassium 3.8 Chloride 111 H Carbon Dioxide 29 Anion Gap 4 L BUN 16.6 Creatinine 0.7 Est GFR (CKD-EPI)AfAm 118.74 Est GFR (CKD-EPI)NonAf 102.45 Random Glucose 94 Calcium 8.9 Phosphorus 3.1 Magnesium 2.3 Total Bilirubin 0.9 AST 13 L ALT 21 Alkaline Phosphatase 65 Total Protein 6.2 L Albumin 3.6 Urine Color Yellow Urine Appearance Turbid Urine pH 8.0 Ur Specific Only 1.014 Urine Protein Negative Urine Glucose (UA) Negative Urine Ketones Negative Urine Blood 3+ H Urine Nitrite Negative Urine Bilirubin Negative Urine Urobilinogen 0.2 Ur Leukocyte Esterase Trace Urine WBC (Auto) 6 Urine RBC (Auto) 218 Urine Casts (Auto) 7 U Epithel Cells (Auto) 6.2 Urine Bacteria (Auto) 167.7 Urine HCG, Qual 07/30/19 10:00 WBC RBC Hgb Hct MCV MCH MCHC RDW Plt Count MPV Absolute Neuts (auto) Neutrophils % Lymphocytes % Monocytes % Eosinophils % Basophils % Nucleated RBC % Sodium Potassium Chloride Carbon Dioxide Anion Gap BUN Creatinine Est GFR (CKD-EPI)AfAm Est GFR (CKD-EPI)NonAf Random Glucose Calcium Phosphorus Magnesium Total Bilirubin AST ALT Alkaline Phosphatase Total Protein Albumin Urine Color Yellow Urine Appearance Turbid Urine pH 7.0 Ur Specific Only 1.012 Urine Protein Trace Urine Glucose (UA) Negative Urine Ketones Negative Urine Blood 2+ H Urine Nitrite Negative Urine Bilirubin Negative Urine Urobilinogen 0.2 Ur Leukocyte Esterase 3+ H Urine WBC (Auto) 59 Urine RBC (Auto) 151 Urine Casts (Auto) 38 U Epithel Cells (Auto) 20.9 Urine Bacteria (Auto) 1431.1 Urine HCG, Qual Current Medications Generic Name Dose Route Start Last Admin Trade Name Freq PRN Reason Stop Dose Admin Fentanyl 50 mcg 07/30/19 12:40 Sublimaze Injection - IVPUSH [id number] PRN PAIN-PACU ORDER X 4 DOSES ONLY Flecainide Acetate 50 mg 07/30/19 22:00 Tambacor - PO BID RISSA Ceftriaxone Sodium 1 gm/ 50 mls @ 100 mls/hr 07/31/19 10:00 Dextrose IVPB DAILY [facility] Protocol Lactated Ringer's 1,000 mls @ 75 mls/hr 07/30/19 12:40 07/30/19 13:35 Lactated Ringers Solution IV 75 mls/hr ASDIR RISSA Administration Ketorolac Tromethamine 30 mg 07/30/19 12:40 Toradol Injection - IVPUSH 08/04/19 02:24 Q6H PRN PAIN LEVEL 4 - 6 Morphine Sulfate 2 mg 07/30/19 12:40 Morphine Sulfate IVPUSH Q4H PRN PAIN LEVEL 7 - 10 Ondansetron HCl 4 mg 07/30/19 12:40 07/30/19 13:00 Zofran Injection IVPUSH 4 mg Q6H PRN Administration NAUSEA AND/OR VOMITING Tamsulosin HCl 0.4 mg 07/31/19 08:30 Flomax - PO DAILY@0830 [facility] Home Medications Medication Instructions Recorded Flecainide Acetate [Flecainide 50 mg PO BID 03/22/17 Acetate -] Date of Admission:07/29/19 Date of Discharge: 07/30/19 Minutes to complete discharge: 45 Discharge Summary Reason For Visit: CALCULUS OF R KIDNEY Current Active Problems Hydronephrosis concurrent with and due to calculi of kidney and ureter (Acute) Renal calculus (Acute) Right kidney stone (Acute) Ureteral calculus, right (Acute) Hospital Course: 49 year old female with history of L Nephrolithiasis s/p Stent placement/removal , paroxysmal atrial fibrillation s/p ablation (not on anticoagulation), presented with R flank pain/hematuria/nausea. CT A/P - showed mild right hydronephrosis due to [id number] calculus in proximal right ureter with additional small bilateral intrarenal calculi. She was evaluated by Dr. Kwon who took her to OR to perform Cystoscopy with R JJ stent placement. Procedure reportedly went well and she was started on Ceftriaxone and Tamsulosin by Urology. Currently she wants to leave AMA. She was explained all risks of doing so including urinary obstruction/sepsis/septic shock/. She accepts responsibility and signed [facility] paperwork. 1. Nephrolithiasis with Obstruction and Hydronephrosis Evaluated by urology and currently immediately s/p OR for Cystoscopy and R JJ stent placement. Started on Flomax and Ceftriaxone Afebrile, hemodynamically stable. Urine Cx pending. Ongoing hematuria Patient insists on leaving AMA Nurse asked to contact Dr. Kwon for prescriptions for required out-patient Urology medications. Patient advised to seek medical attention if worsening hematuria/lightheadedness /dizziness/chest pain/palpitations/fever/chills/worsening abdominal or flank pain/nausea/vomiting. 2. Paroxysmal Atrial Fibrillation s/p ablation Continue Flecainide. Condition: Fair - Instructions Disposition: AGAINST MEDICAL ADVICE - Home Medications Comprehensive Discharge Medication List: Ambulatory Orders Flecainide Acetate [Flecainide Acetate -] 50 mg PO BID 03/22/17 This patient is new to me today: Yes Date on this admission: 07/30/19 Emergency Visit: Yes ED Registration Date: 07/29/19 Care time: The patient presented to the Emergency Department on the above date and was hospitalized for further evaluation of their emergent condition. Critical Care patient: No - Discharge Referral Referred to [facility] No
[2019-07-31] MEDS ORDERED: TAMSULOSIN HCL 0.4 MG CAP PO SCH (08:30)
[2019-07-31] MEDS ORDERED: CEFTRIAXONE 1 GM in DEXTROSE 5%-WATER - 50 ML IVPB SCH (10:00)
== END 2019-07-30 17:52 | disposition left against medical advice (07) | DRG 465 ==
LOC: JER 18:36 → JERBED 23:13 → J5S 07-30 02:20
PROVIDERS: ADMIT Internal Medicine
PROC: 0T768DZ Dilation of Right Ureter with Intraluminal Device, Via Natural or Artificial Opening Endoscopic (ICD-10-PCS; principal; 2019-07-30 11:44)
PROC: BT1DYZZ Fluoroscopy of Right Kidney, Ureter and Bladder using Other Contrast (ICD-10-PCS; 2019-07-30 11:44)
DX: N13.2 Hydronephrosis with renal and ureteral calculous obstruction (principal); I48.0 Paroxysmal atrial fibrillation; K44.9 Diaphragmatic hernia without obstruction or gangrene; R31.9 Hematuria, unspecified; J98.11 Atelectasis
CPT/HCPCS: 36415; 74176-TC; 80053; 81003; 83735; 84100; 84703; 85025; 87086; 93005; 93010; 94760; 99285-25; J0131; J7030

== ENCOUNTER 2019-09-04 09:51 | Day surgery (SDC) | payer OTHER ==
[2019-09-01 09:31] VITALS: BMI 24.9
[2019-09-04] MEDS ORDERED: MIDAZOLAM HCL 2 MG/2 ML SINGLE DOSE VIAL ONE ×2 (12:26→12:35)
[2019-09-04] MEDS ORDERED: KETOROLAC TROMETHAMINE 30 MG/1 ML VIAL ONE (12:40)
[2019-09-04] MEDS ORDERED: DEXAMETHASONE SOD PHOSPHATE 4 MG/1 ML VIAL IVPUSH ONE (13:23)
[2019-09-04] MEDS ORDERED: PROMETHAZINE HCL 25 MG/1 ML VIAL IVPB ONE (13:23)
[2019-09-04] MEDS ORDERED: PROMETHAZINE HCL 25 MG/1 ML VIAL ONE (13:33)
[2019-09-04] MEDS ORDERED: DEXAMETHASONE SOD PHOSPHATE 4 MG/1 ML VIAL ONE (13:34)
--- NOTE | 2019-09-04 14:06 | OP ---
Operative Note - Note: Operative Date: 09/04/19 Pre-Operative Diagnosis: R kidney stone Operation: Right ESWL Findings: 6 mm lower pole Right renal stone Post-Operative Diagnosis: Same as Pre-op Surgeon: Jani Younegr Anesthesia: Topical Estimated Blood Loss (mls): 0 Drains & Tubes with Location: JJ stent Drains, Volume Out (mls): 1 Operative Report Dictated: Yes
[2019-09-04 16:06] VITALS: BP 118/81; PULSE 72; TEMP 98
--- NOTE | 2019-09-04 18:38 | OP ---
DATE OF OPERATION: 09/04/2019 PREOPERATIVE DIAGNOSIS: Right renal stone. POSTOPERATIVE DIAGNOSIS: Right renal stone. PROCEDURE: Right extracorporeal shock-wave lithotripsy. ATTENDING: Geni Rdz MD ANESTHESIA: Fractional. DESCRIPTION OF PROCEDURE: Patient was brought in the operating room, placed in supine position on the operating room table. Ultrasonography and fluoroscopy were performed. A 6-mm right lower pole stone was identified. At this point, anesthesia and preoperative antibiotics were administered. Shock-wave lithotripsy was then performed; 3000 impulses at 18 joules of power were administered to the stone with excellent fragmentation noted under real time ultrasonography and fluoroscopy. There were no complications noted. The patient tolerated the procedure very well. DISPOSITION: To recovery room. GENI RDZ M.D. [id number]
== END 2019-09-04 15:15 | disposition home or self-care (01) ==
LOC: JASU-SURG 09:51
PROVIDERS: ATTEND Urology
PROC: 0TF3XZZ Fragmentation in Right Kidney Pelvis, External Approach (ICD-10-PCS; principal; 2019-09-04 09:30)
DX: N20.0 Calculus of kidney (principal); I48.91 Unspecified atrial fibrillation
CPT/HCPCS: 84703

== ENCOUNTER 2019-09-13 16:13 | Inpatient (IN) | payer OTHER ==
[2019-09-13] MEDS ORDERED: CIPROFLOXACIN 400 MG/D5W 400 MG/200 ML IVPB IVPB ONE (16:23)
--- NOTE | 2019-09-13 16:23 | PDOC ---
Rapid Medical Evaluation Chief Complaint: Pain Time Seen by Provider: 09/13/19 16:16 Medical Evaluation: Allergies Allergy/AdvReac Type Severity Reaction Status Date / Time No Known Allergies Allergy Verified 09/13/19 16:19 Vital Signs Temp Pulse Resp BP Pulse Ox 97.8 F 73 18 128/89 100 09/13/19 16:16 09/13/19 16:16 09/13/19 16:16 09/13/19 16:16 09/13/19 16:16 09/13/19 16:21 Pt c/o: sent from doctor for + CT findings today for diverticulitis, + nausea and lower abd pain, no fever Pt on brief exam: llq tenderness, vss PT ordered for: labs, iv, urine pt to proceed to the ED Discharge Disposition - Diagnosis Abdominal pain Qualifiers: Abdominal location: left lower quadrant Qualified Code(s): R10.32 - Left lower quadrant pain - Discharge Dispostion Condition at time of disposition: Good - Referrals - Patient Instructions - Post Discharge Activity
[2019-09-13] MEDS ORDERED: ONDANSETRON 4 MG/2 ML VIAL IVPB ONE (16:31)
[2019-09-13] MEDS ORDERED: LACTATED RINGERS SOLUTION 1000 ML INFUS.BAG IV ONE (16:31)
[2019-09-13] MEDS ORDERED: morphine CARPU-JECT 4 MG/1 ML DISP.SYRIN IVPUSH ONE (16:31)
[2019-09-13] MEDS ORDERED: CEFTRIAXONE 1 GM in DEXTROSE 5%-WATER - 100 ML IVPB ONE (16:33)
[2019-09-13] MEDS ORDERED: morphine SULFATE 4 MG/ML VIAL ONE (17:02)
[2019-09-13] MEDS ORDERED: cefTRIAXone SODIUM 1 GM VIAL ONE (17:04)
[2019-09-13] MEDS ORDERED: ONDANSETRON 4 MG/2 ML VIAL ONE (17:04)
[2019-09-13 17:07] LABS: BASO % 0.9 % (0-2.0); HEMATOCRIT 38.6 % (32.4-45.2); HEMOGLOBIN 12.6 GM/dL (10.7-15.3); LYMPH % 37.8 % (8-40); MCH 29.5 pg (25.7-33.7); MCHC 32.7 g/dl (32.0-36.0); MEAN CELL VOLUME 90.3 fl (80-96); MEAN PLT VOLUME 7.9 fl (7.5-11.1); MONO % 8.7 % (3.8-10.2); NEUT % 49.6 % (42.8-82.8); PLATELET COUNT 260 K/MM3 (134-434); RBC 4.28 M/mm3 (3.60-5.2); RDW 13.2 % (11.6-15.6); WHITE BLOOD COUNT 6.9 K/mm3 (4.0-10.0)
--- NOTE | 2019-09-13 17:15 | PDOC ---
Attending Attestation - Resident Resident Name: Lori Boyer - ED Attending Attestation I have performed the following: I have examined & evaluated the patient, The case was reviewed & discussed with the resident, I agree w/resident's findings & plan, Exceptions are as noted - HPI HPI: 09/13/19 17:07 49yo female with LLQ abd pain since wednesday. Hx of renal stones and hx of stent placement with Dr. Zurdo Wright a week ago. C/o dysuria. Also states nausea, chills and LLQ abd pain. Low back pain across her low back, but no cva ttp. Pt with constipation last week, no diarrhea. States pain different from prior renal colic pain. Pt saw dr. Atkins this AM who ordered a ct - CT shows acute diverticulitis with poss microperf. - Physicial Exam PE: 09/13/19 17:09 Gen: aaox3, nad heart: +s1s2 reg lungs: cta b/l abd: soft, LLQ ttp, +rebound, no guarding ext: no c/c/e - Medical Decision Making 09/13/19 17:15 a/p: 49yo female with LLQ pain and CT that shows diverticulitis -abx ordered -labs ordered -pt is nontoxic in appearance -pt without fevers -LLQ ttp -will discuss with surgery - Dr. Seymour (resident discussed the case - will see patient in consult tomorrow) -will need admission to [facility] 09/13/19 17:55 no elevated wbc microblog sent to [facility] for admission 09/13/19 17:55 resident discussed the case with [facility] who accepts pt to service Heart Score/ECG Review - ECG Intrepretation Comment:: 09/13/19 17:29 sinus at 83, nl axis, nl interval, no acute st/t wave findings
[2019-09-13 17:16] LABS: INR 1.05 (0.83-1.09); PROTHROMBIN TIME (PATIENT) 12.4 SEC (9.7-13.0)
[2019-09-13 17:28] LABS: BILIRUBIN,TOTAL 0.4 mg/dL (0.2-1); BLOOD UREA NITROGEN 13.3 mg/dL (7-18); CREATININE 0.7 mg/dL (0.55-1.3); POTASSIUM 3.7 mmol/L (3.5-5.1); TOT PROT 7.2 g/dl (6.4-8.2)
--- NOTE | 2019-09-13 17:37 | PDOC ---
History of Present Illness - General Chief Complaint: Pain Stated Complaint: sent by doctor for Diverticulitis, possible Perfor Time Seen by Provider: 09/13/19 16:16 History Source: Patient Exam Limitations: No Limitations - History of Present Illness Initial Comments: 09/13/19 17:35 49y F with PMH of Kidney stones s/p R ureter stent presenting to ED after CT revealed possible perforated sigmoid colon due to diverticulitis. Patient states that 4d ago she developed LLQ abdominal pain which did not radiate. She took medications for pain and felt better but the pain still persisted. She states that she started to develop chills and felt nauseous and felt pain in the bilateral flanks. She states she also had hematuria. She went to see her urologist but said he had a full schedule but she was able to get CT scan today. Denies fever, vomiting, diarrhea, chest pain, sob. PMD: none Uro: Zurdo-Adriana PMH: see hpi PSH: see hpi Meds: see med rec Allergies: nkda Past History - Past Medical History Allergies/Adverse Reactions: Allergies Allergy/AdvReac Type Severity Reaction Status Date / Time No Known Allergies Allergy Verified 09/13/19 16:19 Home Medications: Ambulatory Orders Flecainide Acetate [Flecainide Acetate -] 50 mg PO DAILY 03/22/17 Anemia: Yes Asthma: No Cancer: No Cardiac Disorders: Yes (joe-had an ablation 2015) CVA: No COPD: No CHF: No Dementia: No Diabetes: No GI Disorders: Yes (Diverticulitis) Disorders: No (RENAL CALCULI, HX ESWOL SEVERAL X'S) HTN: No Hypercholesterolemia: No Kidney Stones: Yes Liver Disease: No Seizures: No Thyroid Disease: No - Surgical History Abdominal Surgery: Yes (fibroid) Appendectomy: No Cardiac Surgery: Yes (ablation 09/30) Cholecystectomy: No Lung Surgery: No Neurologic Surgery: No Orthopedic Surgery: No - Psycho Social/Smoking Cessation Hx Smoking History: Never smoked Have you smoked in the past 12 months: No Hx Alcohol Use: No Drug/Substance Use Hx: No Substance Use Type: None Hx Substance Use Treatment: No Review of Systems - Review of Systems Constitutional: Yes: Chills. No: Fever HEENTM: No: Symptoms Reported Respiratory: No: Symptoms reported Cardiac (ROS): No: Symptoms Reported ABD/GI: Yes: See HPI : Yes: See HPI Musculoskeletal: No: Symptoms Reported Integumentary: No: Symptoms Reported Neurological: No: Symptoms reported *Physical Exam - Vital Signs Last Vital Signs Temp Pulse Resp BP Pulse Ox 97.9 F 77 12 131/82 100 09/13/19 16:16 09/13/19 16:16 09/13/19 16:16 09/13/19 16:16 09/13/19 16:16 - Physical Exam General Appearance: Yes: Nourished, Appropriately Dressed, Mild Distress HEENT: positive: EOMI, RACHAEL Neck: positive: Trachea midline, Supple Respiratory/Chest: positive: Lungs Clear, Normal Breath Sounds. negative: Crackles, Rales, Rhonchi, Stridor, Wheezing Cardiovascular: positive: Regular Rhythm, Regular Rate, S1, S2. negative: Edema , JVD, Murmur Vascular Pulses: Dorsalis-Pedis (R): 2+, Doralis-Pedis (L): 2+ Gastrointestinal/Abdominal: positive: Normal Bowel Sounds, Soft, Tenderness (LLQ ). negative: Guarding, Rebound Musculoskeletal: negative: CVA Tenderness Extremity: negative: Swelling, Calf Tenderness, Erythema Integumentary: positive: Normal Color, Dry, Warm Neurologic: positive: unleavened dough mixer II-XII NML intact, Fully Oriented, Alert, Normal Mood/ Affect, Normal Response, Motor Strength / ED Treatment Course - LABORATORY CBC & Chemistry Diagram: 09/13/19 16:44 09/13/19 16:44 - ADDITIONAL ORDERS Additional order review: Laboratory Results 09/13/19 09/13/19 16:44 16:44 PT with INR 12.40 INR 1.05 Sodium 140 Potassium 3.7 Chloride 105 Carbon Dioxide 27 Anion Gap 8 BUN 13.3 Creatinine 0.7 Est GFR (CKD-EPI)AfAm 118.74 Est GFR (CKD-EPI)NonAf 102.45 Random Glucose 86 Calcium 9.0 Total Bilirubin 0.4 AST 16 ALT 25 Alkaline Phosphatase 80 Total Protein 7.2 Albumin 4.0 - RADIOLOGY Radiology Studies Ordered: Category Date Time Status CHEST X-RAY PORTABLE* [RAD] Stat Radiology 09/13/19 16:53 Ordered - Medications Given in the ED: ED Medications Discontinued Medications Generic Name Dose Route Start Last Admin Trade Name Freq PRN Reason Stop Dose Admin Ceftriaxone Sodium 1 gm/ 100 mls @ 200 mls/hr 10/30/19 16:33 09/13/19 17:15 Dextrose IVPB 09/13/19 17:02 200 mls/hr ONCE ONE Administration Lactated Ringer's 1,000 ml 09/13/19 16:31 09/13/19 17:15 Lactated Ringers Solution IV 09/13/19 16:32 1,000 ml NOW ONE Administration Morphine Sulfate 4 mg 09/13/19 16:31 09/13/19 17:33 Morphine Injection - IVPUSH 09/13/19 16:32 Not Given ONCE ONE Ondansetron HCl 4 mg 09/13/19 16:31 09/13/19 17:33 Zofran Injection IVPB 09/13/19 16:32 Not Given ONCE ONE Medical Decision Making - Medical Decision Making 09/13/19 18:44 49yF presenting for LLQ pain and CT showing sigmoid diverticulitis with possible microperforation. labs ordered by e -Flagyl, Rocephin -IVF, morphine, zofran -ekg, cxr tried to discuss case with Dr. Seymour, not in today, is in tomorrow. Patient does not require acute intervention at this time. CT was performed without contrast, may need repeat CT with iv contrast. consult order placed UA positive for infection however slightly dirty sample, is being covered with rocephin. accepted by hospitalist. cxr: no free air under diaphragm ekg: nsr at 79bpm. pr 122, qtc 440, qrs 84. no emeli or depressions. Discharge - Discharge Information Problems reviewed: Yes Clinical Impression/Diagnosis: Abdominal pain Qualifiers: Abdominal location: left lower quadrant Qualified Code(s): R10.32 - Left lower quadrant pain Condition: Good - Admission Yes - Follow up/Referral Referrals: Danielle Luong MD [Primary Care Provider] - - Patient Discharge Instructions - Post Discharge Activity
[2019-09-13 18:20] LABS: EPI CELLS 4.6 /HPF (0-5/HPF); HYALINE CASTS 2 /lpf (0-8); URINE APPEARANCE CLEAR; URINE BACTERIA 192.5 /hpf (NEGATIVE); URINE BILIRUBIN NEGATIVE (NEGATIVE); URINE COLOR YELLOW; URINE GLUCOSE (UA) NEGATIVE (NEGATIVE); URINE KETONE TRACE (NEGATIVE); URINE LEUK ESTERASE 2+ (NEGATIVE); URINE NITRITE NEGATIVE (NEGATIVE); URINE PROTEIN TRACE (NEGATIVE); URINE RBC 149 /hpf (0-4); URINE UROBILINOGEN 0.2 mg/dL (0.2-1.0); URINE WBC 12 /hpf (0-5)
[2019-09-13] MEDS ORDERED: MORPHINE SULFATE 2 MG/ML VIAL IVPUSH PRN (18:38)
[2019-09-13] MEDS ORDERED: KETOROLAC TROMETHAMINE 15 MG/ML VIAL IVPUSH PRN (18:38)
--- NOTE | 2019-09-13 18:40 | HP ---
CHIEF COMPLAINT: LLQ abd pain PCP: Unknown HISTORY OF PRESENT ILLNESS: 49F w/ pmhx of b/l nephrolithiasis (recent R side stent placed last week) and paroxsymal afib (s/p ablation) presents in the ED for LLQ abd pain that started last Wednesday. States the pain is localized to the LLQ and is different from the pain she usually experiences with kidney stones. Pain has been worsening over the past 3 days. Admits to taking PO Ketorolac that was given by urology after her recent stent placement with good symptomatic relief. Since Wednesday she admits to poor oral intake due to nausea, but denies fever, chest pain, sob , changes in urinary/bowel habits. Pt saw her urology yesterday who ordered CTAP given her abd symptoms and results were remarkable for acute diverticulitis with ? intraluminal air suggestive of possible perforation. As a result, she was sent to the ED for further evaluation. Of note, pt had a colonoscopy ~2005 for a "flower-like mass" seen in her rectum. It was removed and ER course was notable for: (1) VS wnl, labs unremarkable (2) IV Flagyl/Ceftriaxone (3) CTAP shows acute diverticulitis in proximal sigmoid colon w/ ? microperforation; mild persistent R hydronephrosis Recent Travel: Denies PAST MEDICAL HISTORY: As per HPI PAST SURGICAL HISTORY: C-s x2 cardiac ablation b/l ureteral stent placement Social History: Smoking: Denies Alcohol: Denies Drugs: Denies Allergies No Known Allergies Allergy (Verified 09/13/19 16:19) HOME MEDICATIONS: Home Medications Medication Instructions Recorded Flecainide Acetate [Flecainide 50 mg PO BID 03/22/17 Acetate -] REVIEW OF SYSTEMS CONSTITUTIONAL: Absent: fever, chills, diaphoresis, generalized weakness, malaise, loss of appetite, weight change HEENT: Absent: rhinorrhea, nasal congestion, throat pain, throat swelling, difficulty swallowing, mouth swelling, ear pain, eye pain, visual changes CARDIOVASCULAR: Absent: chest pain, syncope, palpitations, irregular heart rate, lightheadedness , peripheral edema RESPIRATORY: Absent: cough, shortness of breath, dyspnea with exertion, orthopnea, wheezing, stridor, hemoptysis GASTROINTESTINAL: L abdominal pain, nausea Absent: abdominal distension, vomiting, diarrhea, constipation, melena, hematochezia GENITOURINARY: hematuria, flank pain Absent: dysuria, frequency, urgency, hesitancy, genital pain MUSCULOSKELETAL: Absent: myalgia, arthralgia, joint swelling, back pain, neck pain SKIN: Absent: rash, itching, pallor HEMATOLOGIC/IMMUNOLOGIC: Absent: easy bleeding, easy bruising, lymphadenopathy, frequent infections ENDOCRINE: Absent: unexplained weight gain, unexplained weight loss, heat intolerance, cold intolerance NEUROLOGIC: Absent: headache, focal weakness or paresthesias, dizziness, unsteady gait, seizure, mental status changes, bladder or bowel incontinence PSYCHIATRIC: Absent: anxiety, depression, suicidal or homicidal ideation, hallucinations. PHYSICAL EXAMINATION Vital Signs - 24 hr 09/13/19 16:16 Temperature 97.9 F Pulse Rate 73 Pulse Rate [ 77 Left Radial] Respiratory 12 Rate Blood Pressure 128/89 Blood Pressure 131/82 [Left Arm] O2 Sat by Pulse 100 Oximetry (%) GENERAL: Pleasant female. NAD. AAOx3. HEENT: AT/NC. EOMI. MMM. No pharyngeal erythema. NECK: Normal range of motion, supple without lymphadenopathy, JVD, or masses. LUNGS: CTA B/L. No wheezes noted. Symmetric chest rise. HEART: RRR. Normal S1, S2. No murmurs noted. ABDOMEN: Soft, non-distended. +TTP LLQ, normoactive bowel sounds. No obvious deformities. MUSCULOSKELETAL: Normal range of motion at all joints. No bony deformities or tenderness. No CVA tenderness. UPPER EXTREMITIES: 2+ pulses, warm, well-perfused. No cyanosis. No clubbing. No peripheral edema. LOWER EXTREMITIES: 2+ pulses, warm, well-perfused. No calf tenderness. No peripheral edema. NEUROLOGICAL: Cranial nerves II-XII intact. Normal speech. PSYCHIATRIC: Cooperative. Good eye contact. Appropriate mood and affect. SKIN: Warm, dry, normal turgor, no rashes or lesions noted, normal capillary refill. Laboratory Results - last 24 hr 09/13/19 09/13/19 09/13/19 16:44 16:44 16:44 WBC 6.9 RBC 4.28 Hgb 12.6 Hct 38.6 MCV 90.3 MCH 29.5 MCHC 32.7 RDW 13.2 Plt Count 260 D MPV 7.9 Absolute Neuts (auto) 3.4 Neutrophils % 49.6 Lymphocytes % 37.8 Monocytes % 8.7 Eosinophils % 3.0 Basophils % 0.9 Nucleated RBC % 0 PT with INR 12.40 INR 1.05 Sodium 140 Potassium 3.7 Chloride 105 Carbon Dioxide 27 Anion Gap 8 BUN 13.3 Creatinine 0.7 Est GFR (CKD-EPI)AfAm 118.74 Est GFR (CKD-EPI)NonAf 102.45 Random Glucose 86 Calcium 9.0 Total Bilirubin 0.4 AST 16 ALT 25 Alkaline Phosphatase 80 Total Protein 7.2 Albumin 4.0 Urine Color Urine Appearance Urine pH Ur Specific [place] Urine Protein Urine Glucose (UA) Urine Ketones Urine Blood Urine Nitrite Urine Bilirubin Urine Urobilinogen Ur Leukocyte Esterase Urine WBC (Auto) Urine RBC (Auto) Urine Casts (Auto) U Epithel Cells (Auto) Urine Bacteria (Auto) Blood Type Antibody Screen 09/13/19 09/13/19 17:02 17:44 WBC RBC Hgb Hct MCV MCH MCHC RDW Plt Count MPV Absolute Neuts (auto) Neutrophils % Lymphocytes % Monocytes % Eosinophils % Basophils % Nucleated RBC % PT with INR INR Sodium Potassium Chloride Carbon Dioxide Anion Gap BUN Creatinine Est GFR (CKD-EPI)AfAm Est GFR (CKD-EPI)NonAf Random Glucose Calcium Total Bilirubin AST ALT Alkaline Phosphatase Total Protein Albumin Urine Color Yellow Urine Appearance Clear Urine pH 8.0 Ur Specific [place] 1.005 L Urine Protein Trace Urine Glucose (UA) Negative Urine Ketones Trace H Urine Blood 3+ H Urine Nitrite Negative Urine Bilirubin Negative Urine Urobilinogen 0.2 Ur Leukocyte Esterase 2+ H Urine WBC (Auto) 12 Urine RBC (Auto) 149 Urine Casts (Auto) 2 U Epithel Cells (Auto) 4.6 Urine Bacteria (Auto) 192.5 Blood Type A POSITIVE Antibody Screen Negative ASSESSMENT/PLAN: 49F w/ pmhx of b/l nephrolithiasis (recent R side stent placed last week) and paroxsymal afib (s/p ablation) presents in the ED for LLQ abd pain. #Acute Diverticulitis; CTAP remarkable for acute diverticulitis. +TTP LLQ -IV Zosyn/Ceftriaxone given in ED; will continue IV abx -CTAP findings showed ? microperforation, CXR unremarkable. Pt does not clinically appear to be septic; afebrile, WBC wnl. Abd exam findings +TTP LLQ, but no rebound tenderness or abd distension. Surg consulted by ED; await further recs -NPO -IVf -Toradol/Morphine for pain PRN -Zofran for nausea PRN #Nephrolithiasis s/p R stent -CTAP showed mild R hydronephrosis -U/A +LE, 12 WBCs; already given IV Ceftriaxone -Uro follow up as outpatient #Hx of pAfib; EKG stable, NSR, rate controlled, QTc 440 ms. Cont home meds: Flecainide 50 #Prophylaxis -SCDs for now FEN -IVf -recheck lytes in AM -NPO for now Dispo -admit to med-surg Family Medical History Family History: Denies Visit type - Emergency Visit Emergency Visit: Yes Care time: The patient presented to the Emergency Department on the above date and was hospitalized for further evaluation of their emergent condition. - New Patient This patient is new to me today: Yes Date on this admission: 09/13/19 - Critical Care Critical Care patient: No ATTENDING PHYSICIAN STATEMENT I saw and evaluated the patient. I reviewed the resident's note and discussed the case with the resident. I agree with the resident's findings and plan as documented. SUBJECTIVE: OBJECTIVE: ASSESSMENT AND PLAN:
[2019-09-13] MEDS ORDERED: SODIUM CHLORIDE 1,000 ML IV SCH (18:45)
[2019-09-13] MEDS ORDERED: ONDANSETRON 4 MG/2 ML VIAL IVPUSH PRN (19:10)
[2019-09-13] MEDS ORDERED: ACETAMINOPHEN 325 MG TABLET (FP) PO PRN (19:10)
[2019-09-13 22:59] VITALS: BMI 25.0
--- NOTE | 2019-09-13 23:14 | PN ---
Teaching Attending Note Name of Resident: Lindsey Wheeler ATTENDING PHYSICIAN STATEMENT I saw and evaluated the patient. I reviewed the resident's note and discussed the case with the resident. I agree with the resident's findings and plan as documented. SUBJECTIVE: Patient seen and examined at bedside. Feeling better, hungry. Wants to go home. OBJECTIVE: Vital Signs - 24 hr 09/13/19 09/13/19 09/13/19 16:16 19:23 22:55 Temperature 97.9 F 73 F L Pulse Rate 73 74 Pulse Rate [ 77 78 Left Radial] Respiratory 12 18 20 Rate Blood Pressure 128/89 120/73 Blood Pressure 131/82 123/89 [Left Arm] O2 Sat by Pulse 100 100 Oximetry (%) 09/13/19 23:04 Temperature Pulse Rate Pulse Rate [ Left Radial] Respiratory 20 Rate Blood Pressure Blood Pressure [Left Arm] O2 Sat by Pulse 100 Oximetry (%) PHYSICAL EXAM: GEN: NAD, comfortable CVS: s1s2, rrr, no mrg ABDOMEN: LLQ tenderness to palpation, no rebound, no guarding, soft, NABS, nondistended LUNGS: CTA B/L, no w/r/r, unlabored EXT: no cce Laboratory Tests 09/13/19 09/13/19 09/13/19 16:44 16:44 16:44 WBC 6.9 RBC 4.28 Hgb 12.6 Hct 38.6 MCV 90.3 MCH 29.5 MCHC 32.7 RDW 13.2 Plt Count 260 D MPV 7.9 Absolute Neuts (auto) 3.4 Neutrophils % 49.6 Lymphocytes % 37.8 Monocytes % 8.7 Eosinophils % 3.0 Basophils % 0.9 Nucleated RBC % 0 PT with INR 12.40 INR 1.05 Sodium 140 Potassium 3.7 Chloride 105 Carbon Dioxide 27 Anion Gap 8 BUN 13.3 Creatinine 0.7 Est GFR (CKD-EPI)AfAm 118.74 Est GFR (CKD-EPI)NonAf 102.45 Random Glucose 86 Calcium 9.0 Total Bilirubin 0.4 AST 16 ALT 25 Alkaline Phosphatase 80 Total Protein 7.2 Albumin 4.0 Urine Color Urine Appearance Urine pH Ur Specific Benoit Urine Protein Urine Glucose (UA) Urine Ketones Urine Blood Urine Nitrite Urine Bilirubin Urine Urobilinogen Ur Leukocyte Esterase Urine WBC (Auto) Urine RBC (Auto) Urine Casts (Auto) U Epithel Cells (Auto) Urine Bacteria (Auto) Blood Type Antibody Screen 09/13/19 09/13/19 17:02 17:44 WBC RBC Hgb Hct MCV MCH MCHC RDW Plt Count MPV Absolute Neuts (auto) Neutrophils % Lymphocytes % Monocytes % Eosinophils % Basophils % Nucleated RBC % PT with INR INR Sodium Potassium Chloride Carbon Dioxide Anion Gap BUN Creatinine Est GFR (CKD-EPI)AfAm Est GFR (CKD-EPI)NonAf Random Glucose Calcium Total Bilirubin AST ALT Alkaline Phosphatase Total Protein Albumin Urine Color Yellow Urine Appearance Clear Urine pH 8.0 Ur Specific Benoit 1.005 L Urine Protein Trace Urine Glucose (UA) Negative Urine Ketones Trace H Urine Blood 3+ H Urine Nitrite Negative Urine Bilirubin Negative Urine Urobilinogen 0.2 Ur Leukocyte Esterase 2+ H Urine WBC (Auto) 12 Urine RBC (Auto) 149 Urine Casts (Auto) 2 U Epithel Cells (Auto) 4.6 Urine Bacteria (Auto) 192.5 Blood Type A POSITIVE Antibody Screen Negative Active Medications Generic Name Dose Route Start Last Admin Trade Name Freq PRN Reason Stop Dose Admin Flecainide Acetate 50 mg 09/14/19 10:00 Tambacor - PO DAILY RIS[facility] Sodium Chloride 1,000 mls @ 100 mls/hr 09/13/19 18:45 09/13/19 19:21 Normal Saline - IV 100 mls/hr ASDIR RISSA Administration Ceftriaxone Sodium 1 gm/ 50 mls @ 200 mls/hr 09/14/19 10:00 Dextrose IVPB DAILY RIS[facility] Protocol Metronidazole 500 mg in 100 mls @ 100 mls/hr 09/14/19 02:00 Flagyl 500mg Premixed Ivpb - IVPB Q8H-IV R[facility] Ketorolac Tromethamine 15 mg 09/13/19 18:38 Toradol Injection - IVPUSH 09/18/19 18:37 Q6H PRN PAIN LEVEL 1-5 Morphine Sulfate 1 mg 09/13/19 18:38 Morphine Sulfate IVPUSH Q4H PRN PAIN LEVEL 6-10 Ondansetron HCl 4 mg 09/13/19 19:10 Zofran Injection IVPUSH Q6H PRN NAUSEA Imaging reports reviewed ASSESSMENT AND PLAN: 49 year old female with PMHx nephrolithiasis with right sided stent placed last week presents with LLQ pain found to have acute diverticulitis Assessment: Acute sigmoid diverticulitis Nephrolithiasis s/p right stent, right hydronephrosis P. Afib s/p ablation Plan: IV abx unlikely microperforation, surgery consulted trial liquid diet, advance as tolerated pain control antiemetics follow urology o/p follow urine cx resume home meds
--- NOTE | 2019-09-14 08:32 | PN ---
Progress Note (short form) - Note Progress Note: HPI: Pt reports abdominal pain localizing to LLQ and reason for coming to the hospital. Today pt's pain is slightly improved however she notes some pain with movement. Pt denies any fevers/chills, shortness of breath, CP, discomfort, prior abscesses or perforated bowels. Vital Signs Temperature 73 F L 09/13/19 22:55 Pulse Rate 74 09/13/19 22:55 Respiratory Rate 20 09/13/19 23:04 Blood Pressure 120/73 09/13/19 22:55 O2 Sat by Pulse Oximetry (%) 100 09/13/19 23:04 PE: Gen: NAD, awake, alert, oriented x3 HEENT: NC/AT< SOLO, sclera anicteric, MMM LUNG: CTA b/l no wheezes on RA CARD: RRR no murmurs appreciated ABD: Soft, no ecchymotic regions, hypoactive BS, TTP in LLQ, + Rebound, no guarding, no hepatomegaly EXT: No edema, pulses strong b/l CBC, BMP 09/14/19 07:20 09/14/19 07:20 Active Medications Acetaminophen (Ofirmev Injection -) 1,000 mg IVPB Q6H PRN PRN Reason: HEADACHE Last Admin: 09/14/19 12:24 Dose: 1,000 mg Flecainide Acetate (Tambacor -) 50 mg PO DAILY [facility] Lactated Ringer's (Lactated Ringers Solution) 1,000 ml in 1,000 mls @ 100 mls/ hr IV ASDIR [facility] Last Admin: 09/14/19 09:02 Dose: 100 mls/hr Piperacillin Sod/Tazobactam (Sod 3.375 gm/ Dextrose) 50 mls @ 100 mls/hr IVPB Q8H-IV [facility]; Protocol Last Admin: 09/14/19 17:41 Dose: 100 mls/hr Ketorolac Tromethamine (Toradol Injection -) 15 mg IVPUSH Q6H PRN PRN Reason: PAIN LEVEL 1-5 Stop: 09/18/19 18:37 Morphine Sulfate (Morphine Sulfate) 1 mg IVPUSH Q4H PRN PRN Reason: PAIN LEVEL 6-10 Ondansetron HCl (Zofran Injection) 4 mg IVPUSH Q6H PRN PRN Reason: NAUSEA Assessment and Plan: Perforated Sigmoid Colon Diverticulitis Simple Cystitis --NPO --Surgery consulted --Change to Zosyn 3.375 q8h --Monitor abdominal examinations --Pt with UA suggestive of UTI --Urine culture pending; to f/u --Change fluids to LR@100cc/hr --Ketorlac for pain control alongside of tylenol --Morphine for breakthrough --Zofran for any nausea FEN: Fluids: LR @100cc/hr Electrolyte abnormalities: None Nutrition: NPO for now PPX: DVT - Early ambulation GI - No indications Dispo: Monitor on M/S CAse discussed with Dr. Kayley Lazcano, DO - IM PGY-3 <Les Lazcano - Last Filed: 09/14/19 21:42> - Note Progress Note: Seen and examined; please refer to resident note for further historical information. All historical and PE information independently verified and all labs and available imaging independently reviewed. Agree with the assessment and plan as outlined in the resident note aside from as specifically supplemented by myself. She has improved pain and no diarrhea, nausea, or vomitting. Wants to eat; was already on a diet this AM. Pending sgy eval. AXR ordered. 10 sys ROS done and negative aside from HPI VS, labs, imaging reviewed NAD, AAO, resting in bed NC AT EOMI PERRLA RRR s1/2 no mgr Lungs CTAB, w/ sym exp Tender diffusely but endorses improvement from yesterday without noted distention and +BS CN2-12 wnl, no fnd Normal mood, appropriate behavior Neck with midline trachea and no JVD or masses Skin without rashes or breakdown noted A/P: Presents with sigmoid diverticulitis with microperforation. Surgical consultation pending; on abx per ID and will likely need to arrange OP scope. No overwhelming history of recurring diverticulitis. Changing to zosyn and will advance diet as per surgical services and FU with ID. FU AXR. Problems include: -Sigmoid diverticulitis with microperforation *Surgical consult pending. Avoid AC and will give SCDs for DVT px; type and cross and check INR. Zosyn and ID consult. Pain control -Cystitis *Positive UA with vague dysuria; abdominal pain likely secondary to the diverticulitis but also could be referred for cystitis. Followup culture; would be covered by the zosyn. -Overweight (BMI 25) Full Code <Panda Zaldivar - Last Filed: 09/16/19 08:48>
[2019-09-14] MEDS ORDERED: PIPERACILLIN/TAZOBACTAM 3.375 GM VIAL IVPB ONE ×2 (08:54→17:30)
[2019-09-14] MEDS ORDERED: DEXTROSE 5%-WATER - 50 ML IVPB ONE ×2 (08:54→17:31)
[2019-09-14] MEDS: LACTATED RINGERS SOLUTION 1,000 ML/1,000 ML INFUS.BAG IV SCH (09:02)
[2019-09-14 09:06] LABS: HEMATOCRIT 35.6 % (32.4-45.2); HEMOGLOBIN 11.9 GM/dL (10.7-15.3); MCH 29.8 pg (25.7-33.7); MCHC 33.4 g/dl (32.0-36.0); MEAN CELL VOLUME 89.2 fl (80-96); MEAN PLT VOLUME 7.7 fl (7.5-11.1); PLATELET COUNT 230 K/MM3 (134-434); RBC 3.99 M/mm3 (3.60-5.2); RDW 12.9 % (11.6-15.6); WHITE BLOOD COUNT 5.3 K/mm3 (4.0-10.0)
[2019-09-14 09:10] LABS: BLOOD UREA NITROGEN 10.3 mg/dL (7-18); CALCIUM 8.6 mg/dL (8.5-10.1); CREATININE 0.6 mg/dL (0.55-1.3); POTASSIUM 3.8 mmol/L (3.5-5.1)
[2019-09-14] MEDS ORDERED: PIPERACILLIN/TAZOB 3.375 GM 3.375 GM in DEXTROSE 5%-WATER - 50 ML IVPB SCH (10:00)
[2019-09-14] MEDS ORDERED: CEFTRIAXONE 1 GM in DEXTROSE 5%-WATER - 50 ML IVPB SCH (10:00)
[2019-09-14] MEDS ORDERED: FLECAINIDE ACETATE 50 MG TABLET PO SCH (10:00)
--- NOTE | 2019-09-14 10:20 | CON.ID ---
Consult Consult Specialty:: infectious diseases Referred by:: Zoraida Reason for Consultation:: abd pain,nausea - History of Present Illness Chief Complaint: abd pain,nausea History of Present Illness: 49F w/ pmhx of b/l nephrolithiasis (recent R side stent placed last week) and paroxsymal afib (s/p ablation) presents came and was admitted for llq pain. according to the patient she has been sick for last couple of days ,she thought it was from kidney stones Pain has been worsening over the past 3 days. Admits to taking PO Ketorolac that was given by urology after her recent stent placement with good symptomatic relief. Since Wednesday she admits to poor oral intake due to nausea , but denies fever, chest pain, sob, changes in urinary/bowel habits. Pt saw her urology yesterday who ordered CTAP given her abd symptoms and results were remarkable for acute diverticulitis with ? intraluminal air suggestive of possible perforation. currently patient is feeling better - History Source History Provided By: Patient Limitations to Obtaining History: No Limitations - Past Medical History Cardio/Vascular: Yes: AFIB ...LMP: 10/15/18 - Alcohol/Substance Use Hx Alcohol Use: No - Smoking History Smoking history: Never smoked Have you smoked in the past 12 months: No Home Medications - Allergies Allergies/Adverse Reactions: Allergies Allergy/AdvReac Type Severity Reaction Status Date / Time No Known Allergies Allergy Verified 09/13/19 16:19 - Home Medications Home Medications: Ambulatory Orders Flecainide Acetate [Flecainide Acetate -] 50 mg PO DAILY 03/22/17 Review of Systems - Review of Systems Constitutional: reports: No Symptoms Eyes: reports: No Symptoms HENT: reports: No Symptoms Neck: reports: No Symptoms Cardiovascular: reports: No Symptoms Respiratory: reports: No Symptoms Gastrointestinal: reports: Abdominal Pain, Nausea Neurological: reports: No Symptoms Endocrine: reports: No Symptoms Hematology/Lymphatic: reports: No Symptoms Psychiatric: reports: No Symptoms Physical Exam Vital Signs: Vital Signs Temperature 73 F L 09/13/19 22:55 Pulse Rate 74 09/13/19 22:55 Respiratory Rate 20 09/14/19 09:00 Blood Pressure 120/73 09/13/19 22:55 O2 Sat by Pulse Oximetry (%) 100 09/14/19 09:00 Constitutional: Yes: Well Nourished, Calm, Mild Distress HENT: Yes: Atraumatic Neck: Yes: Supple, Trachea Midline Cardiovascular: Yes: Regular Rate and Rhythm Respiratory: Yes: Regular, CTA Bilaterally Gastrointestinal: Yes: Soft, Hypoactive Bowel Sounds Musculoskeletal: Yes: WNL Extremities: Yes: WNL Neurological: Yes: Alert, Oriented Psychiatric: Yes: Alert, Oriented Labs: CBC, BMP 09/14/19 07:20 09/14/19 07:20 Imaging - Results Chest X-ray: Report Reviewed, Image Reviewed Cat Scan: Report Reviewed, Image Reviewed Assessment/Plan this patient coming with acute diverticulitis currently improving will continue zosyn await for surgery to see the patient
[2019-09-14] MEDS ORDERED: ACETAMINOPHEN 1000 MG/100 ML VIAL (NON FORMULARY) IVPB PRN (12:04)
--- NOTE | 2019-09-14 12:24 | EKG ---
Test Reason : Blood Pressure : / mmHG Vent. Rate : 078 BPM Atrial Rate : 078 BPM P-R Int : 122 ms QRS Dur : 084 ms QT Int : 386 ms P-R-T Axes : 025 041 042 degrees QTc Int : 440 ms NORMAL SINUS RHYTHM NORMAL ECG WHEN COMPARED WITH ECG OF 30-JUL-2019 00:44, NO SIGNIFICANT CHANGE WAS FOUND Confirmed by LEEANNA PENA MD ([id number]) on 09/14/2019 12:24:12 PM Referred By: Confirmed By:LEEANNA PENA MD
--- NOTE | 2019-09-14 16:33 | CONSULT ---
Consult Consult Specialty:: Surgery - History of Present Illness Chief Complaint: C/O acute onset of left lower quadrant abdominal pain about a few days ago. She is known to have bilateral renal calculii wuth obstruction. She also has atrial fibrillation. A ct scan done yesterday revealed acute sigmoid diverticulitis with microperforation. - History Source History Provided By: Patient Limitations to Obtaining History: No Limitations - Past Medical History Cardio/Vascular: Yes: AFIB ...LMP: 10/15/18 - Alcohol/Substance Use Hx Alcohol Use: No - Smoking History Smoking history: Never smoked Have you smoked in the past 12 months: No Home Medications - Allergies Allergies/Adverse Reactions: Allergies Allergy/AdvReac Type Severity Reaction Status Date / Time No Known Allergies Allergy Verified 09/13/19 16:19 - Home Medications Home Medications: Ambulatory Orders Flecainide Acetate [Flecainide Acetate -] 50 mg PO DAILY 03/22/17 Review of Systems - Review of Systems Gastrointestinal: reports: Abdominal Pain (Inn left lower quadrant of abdomen.) Physical Exam Vital Signs: Vital Signs Temperature 73 F L 09/13/19 22:55 Pulse Rate 74 09/13/19 22:55 Respiratory Rate 20 09/14/19 09:00 Blood Pressure 120/73 09/13/19 22:55 O2 Sat by Pulse Oximetry (%) 100 09/14/19 09:00 Gastrointestinal: Yes: Abdomen, Obese (Tender in left lower quadrant, no guarding , No palpable mass) Labs: CBC, BMP 09/14/19 07:20 09/14/19 07:20 Imaging - Results Cat Scan: Report Reviewed, Image Reviewed Problem List - Problems (1) Diverticulitis of colon with perforation Code(s): K57.20 - DVTRCLI OF LG INT W PERFORATION AND ABSCESS W/O BLEEDING (2) Abdominal pain Code(s): R10.9 - UNSPECIFIED ABDOMINAL PAIN Qualifiers: Abdominal location: left lower quadrant Qualified Code(s): R10.32 - Left lower quadrant pain (3) Hydronephrosis concurrent with and due to calculi of kidney and ureter Code(s): N13.2 - HYDRONEPHROSIS WITH RENAL AND URETERAL CALCULOUS OBSTRUCTION (4) Paroxysmal atrial fibrillation Code(s): I48.0 - PAROXYSMAL ATRIAL FIBRILLATION
[2019-09-14] MEDS: PIPERACILLIN/TAZOB 3.375 GM 3.375 GM in DEXTROSE 5%-WATER - 50 ML IVPB SCH (17:41)
[2019-09-15] MEDS ORDERED: PIPERACILLIN/TAZOBACTAM 3.375 GM VIAL IVPB ONE ×3 (01:10→17:41)
[2019-09-15] MEDS ORDERED: DEXTROSE 5%-WATER - 50 ML IVPB ONE ×3 (01:10→17:41)
[2019-09-15] MEDS: PIPERACILLIN/TAZOB 3.375 GM 3.375 GM in DEXTROSE 5%-WATER - 50 ML IVPB SCH ×3 (01:31→17:48)
--- NOTE | 2019-09-15 07:08 | PN ---
Progress Note (short form) - Note Progress Note: HPI: No acut eevents. no new complaints. Wants to eat PE: Gen: NAD, awake, alert, oriented x3 HEENT: NC/AT< SOLO, sclera anicteric, MMM LUNG: CTA b/l no wheezes on RA CARD: RRR no murmurs appreciated ABD: Soft, normoactive BS, slight TTP in LLQ, + Rebound, no guarding, no hepatomegaly EXT: No edema, pulses strong b/l CBC, BMP 09/15/19 07:25 09/15/19 07:25 Active Medications Acetaminophen (Ofirmev Injection -) 1,000 mg IVPB Q6H PRN PRN Reason: HEADACHE Last Admin: 09/14/19 12:24 Dose: 1,000 mg Flecainide Acetate (Tambacor -) 50 mg PO DAILY [facility] Heparin Sodium (Porcine) (Heparin -) 5,000 unit SQ BID [facility] Last Admin: 09/15/19 09:20 Dose: Not Given Lactated Ringer's (Lactated Ringers Solution) 1,000 ml in 1,000 mls @ 100 mls/ hr IV ASDIR RISSA Last Admin: 09/15/19 09:17 Dose: 100 mls/hr Piperacillin Sod/Tazobactam (Sod 3.375 gm/ Dextrose) 50 mls @ 100 mls/hr IVPB Q8H-IV RISSA; Protocol Last Admin: 09/15/19 17:48 Dose: 100 mls/hr Ketorolac Tromethamine (Toradol Injection -) 15 mg IVPUSH Q6H PRN PRN Reason: PAIN LEVEL 1-5 Stop: 09/18/19 18:37 Morphine Sulfate (Morphine Sulfate) 1 mg IVPUSH Q4H PRN PRN Reason: PAIN LEVEL 6-10 Ondansetron HCl (Zofran Injection) 4 mg IVPUSH Q6H PRN PRN Reason: NAUSEA Assessment and Plan: Perforated Sigmoid Colon Diverticulitis Simple Cystitis --Advance diet --Surgery consulted --Continue Zosyn 3.375 q8h; can likely descalate --Monitor abdominal examinations --Pt with UA suggestive of UTI --Urine culture negative --LR@100cc/hr --Ketorlac for pain control alongside of tylenol --Morphine for breakthrough --Zofran for any nausea FEN: Fluids: LR @100cc/hr Electrolyte abnormalities: None Nutrition: advance PPX: DVT - Early ambulation GI - No indications Dispo: d/c planning CAse discussed with Dr. Kayley Lazcano, DO - IM PGY-3 <Les Lazcano - Last Filed: 09/15/19 19:34> - Note Progress Note: Seen and examined; please refer to resident note for further historical information. All historical and PE information independently verified and all labs and available imaging independently reviewed. Agree with the assessment and plan as outlined in the resident note aside from as specifically supplemented by myself. Possible bladder stone on AXR? Discussed case with Sgy. Advancing diet; discussed as well with resident team and ID. Appreciate expert management from subspecialty services. 10 sys ROS done and negative aside from HPI VS, labs, imaging reviewed NAD, AAO, resting in bed NC AT EOMI PERRLA RRR s1/2 no mgr Lungs CTAB, w/ sym exp Tender diffusely but endorses improvement from yesterday without noted distention and +BS CN2-12 wnl, no fnd Normal mood, appropriate behavior Neck with midline trachea and no JVD or masses Skin without rashes or breakdown noted A/P: Presents with sigmoid diverticulitis with microperforation and complicated UTI with likely bladder stone and pending nephrolithiasis workup and hematuria evident on CT. Problems include: -Sigmoid diverticulitis with microperforation *Advance diet per sgy, needs OP colonoscopy, change to PO abx when OK with ID. -Complicated Cystitis with hematuria *Positive UA with vague dysuria alongside now suspected bladder stone; spiral CT ordered and followup cultures. -Overweight (BMI 25) Barriers to DC at this time include: Needs cleared to change to PO abx and followup spiral CT to r/o nephrolithiasis/bladder stone. May ultimately require urology consultation if there is an indicated diagnosis where inpatient assessment or procedure would be indicated. Full Code <Panda Zaldivar - Last Filed: 09/16/19 08:52>
[2019-09-15 09:07] LABS: BASO % 0.9 % (0-2.0); EOS % 3.6 % (0-4.5); HEMATOCRIT 36.4 % (32.4-45.2); HEMOGLOBIN 12.4 GM/dL (10.7-15.3); LYMPH % 37.3 % (8-40); MCH 30.1 pg (25.7-33.7); MCHC 33.9 g/dl (32.0-36.0); MEAN CELL VOLUME 88.8 fl (80-96); MEAN PLT VOLUME 7.6 fl (7.5-11.1); MONO % 8.9 % (3.8-10.2); NEUT % 49.3 % (42.8-82.8); PLATELET COUNT 250 K/MM3 (134-434); RDW 12.8 % (11.6-15.6); WHITE BLOOD COUNT 5.8 K/mm3 (4.0-10.0)
[2019-09-15] MEDS: LACTATED RINGERS SOLUTION 1,000 ML/1,000 ML INFUS.BAG IV SCH (09:17)
[2019-09-15] MEDS: HEPARIN NA (PORCINE) 5,000 UNITS/ML 1ML VIAL SQ SCH ×2 (09:20→21:14)
[2019-09-15 10:14] LABS: CREATININE 0.8 mg/dL (0.55-1.3); MAGNESIUM 2.1 mg/dL (1.8-2.4); POTASSIUM 3.8 mmol/L (3.5-5.1)
--- NOTE | 2019-09-15 11:33 | PN ---
Progress Note, Physician History of Present Illness: stable no issues denies abd pain - Current Medication List Current Medications: Active Medications Acetaminophen (Ofirmev Injection -) 1,000 mg IVPB Q6H PRN PRN Reason: HEADACHE Last Admin: 09/14/19 12:24 Dose: 1,000 mg Flecainide Acetate (Tambacor -) 50 mg PO DAILY [facility] Heparin Sodium (Porcine) (Heparin -) 5,000 unit SQ BID RIS[facility] Last Admin: 09/15/19 09:20 Dose: Not Given Lactated Ringer's (Lactated Ringers Solution) 1,000 ml in 1,000 mls @ 100 mls/ hr IV ASDIR RISSA Last Admin: 09/15/19 09:17 Dose: 100 mls/hr Piperacillin Sod/Tazobactam (Sod 3.375 gm/ Dextrose) 50 mls @ 100 mls/hr IVPB Q8H-IV RISSA; Protocol Last Admin: 09/15/19 09:16 Dose: 100 mls/hr Ketorolac Tromethamine (Toradol Injection -) 15 mg IVPUSH Q6H PRN PRN Reason: PAIN LEVEL 1-5 Stop: 09/18/19 18:37 Morphine Sulfate (Morphine Sulfate) 1 mg IVPUSH Q4H PRN PRN Reason: PAIN LEVEL 6-10 Ondansetron HCl (Zofran Injection) 4 mg IVPUSH Q6H PRN PRN Reason: NAUSEA - Objective Vital Signs: Vital Signs Temperature 97.9 F 09/15/19 10:00 Pulse Rate 88 09/15/19 10:00 Respiratory Rate 18 09/15/19 10:00 Blood Pressure 103/68 09/15/19 10:00 O2 Sat by Pulse Oximetry (%) 95 09/15/19 08:48 Constitutional: Yes: No Distress, Calm Cardiovascular: Yes: S1, S2 Respiratory: Yes: Regular, CTA Bilaterally Gastrointestinal: Yes: Soft, Hypoactive Bowel Sounds Musculoskeletal: Yes: WNL Extremities: Yes: WNL Neurological: Yes: Alert, Oriented Psychiatric: Yes: Alert, Oriented Labs: CBC, BMP 09/15/19 07:25 09/15/19 07:25 INR, PTT INR 1.05 (0.83-1.09) 09/13/19 16:44 Assessment/Plan plan continue abx iv fluids surgery on case rest as per the team
--- NOTE | 2019-09-15 12:15 | PN ---
Progress Note, Physician - Current Medication List Current Medications: Active Medications Acetaminophen (Ofirmev Injection -) 1,000 mg IVPB Q6H PRN PRN Reason: HEADACHE Last Admin: 09/14/19 12:24 Dose: 1,000 mg Flecainide Acetate (Tambacor -) 50 mg PO DAILY [facility] Heparin Sodium (Porcine) (Heparin -) 5,000 unit SQ BID [facility] Last Admin: 09/15/19 09:20 Dose: Not Given Lactated Ringer's (Lactated Ringers Solution) 1,000 ml in 1,000 mls @ 100 mls/ hr IV ASDIR RISSA Last Admin: 09/15/19 09:17 Dose: 100 mls/hr Piperacillin Sod/Tazobactam (Sod 3.375 gm/ Dextrose) 50 mls @ 100 mls/hr IVPB Q8H-IV RISSA; Protocol Last Admin: 09/15/19 09:16 Dose: 100 mls/hr Ketorolac Tromethamine (Toradol Injection -) 15 mg IVPUSH Q6H PRN PRN Reason: PAIN LEVEL 1-5 Stop: 09/18/19 18:37 Morphine Sulfate (Morphine Sulfate) 1 mg IVPUSH Q4H PRN PRN Reason: PAIN LEVEL 6-10 Ondansetron HCl (Zofran Injection) 4 mg IVPUSH Q6H PRN PRN Reason: NAUSEA - Objective Vital Signs: Vital Signs Temperature 97.9 F 09/15/19 10:00 Pulse Rate 88 09/15/19 10:00 Respiratory Rate 18 09/15/19 10:00 Blood Pressure 103/68 09/15/19 10:00 O2 Sat by Pulse Oximetry (%) 95 09/15/19 08:48 Labs: CBC, BMP 09/15/19 07:25 09/15/19 07:25 INR, PTT INR 1.05 (0.83-1.09) 09/13/19 16:44 Problem List - Problems (1) Diverticulitis of colon with perforation Code(s): K57.20 - DVTRCLI OF LG INT W PERFORATION AND ABSCESS W/O BLEEDING (2) Abdominal pain Code(s): R10.9 - UNSPECIFIED ABDOMINAL PAIN Qualifiers: Abdominal location: left lower quadrant Qualified Code(s): R10.32 - Left lower quadrant pain (3) Hydronephrosis concurrent with and due to calculi of kidney and ureter Code(s): N13.2 - HYDRONEPHROSIS WITH RENAL AND URETERAL CALCULOUS OBSTRUCTION (4) Paroxysmal atrial fibrillation Code(s): I48.0 - PAROXYSMAL ATRIAL FIBRILLATION Assessment/Plan Surgery : Patient feels better. Has no abdominal pain. Has had a normal bowel movement. Abdomen is soft , not distended, Not tender. WBC is normal. Temperature is normal. Impression : Acute sigmoid divericulitis with microperforation. She will have an elective colonoscopy in 6 weeks. Follow up abdominal X-ray is not done. Will resume oral feeding with full liquids.
[2019-09-16] MEDS ORDERED: PIPERACILLIN/TAZOBACTAM 3.375 GM VIAL IVPB ONE ×3 (01:27→17:29)
[2019-09-16] MEDS ORDERED: DEXTROSE 5%-WATER - 50 ML IVPB ONE ×3 (01:27→17:29)
[2019-09-16] MEDS: PIPERACILLIN/TAZOB 3.375 GM 3.375 GM in DEXTROSE 5%-WATER - 50 ML IVPB SCH ×3 (01:34→18:04)
--- NOTE | 2019-09-16 08:55 | PN ---
Physical Exam: SUBJECTIVE: Patient seen and examined; no events reported overnight. Advancing diet and will discuss with consulting services. Needs CT to r/o stone, etc. as may require uro eval. Once OK with ID change to PO abx and DC if negative urological issue workup given the possible bladder stone. 10 sys ROS done and negative aside from HPI OBJECTIVE: Vital Signs Period Temp Pulse Resp BP Sys/Rojas Pulse Ox Last 24 Hr 97.3 F-98.7 F 80-88 18-18 93-104/62-79 95 VS, labs, imaging reviewed NAD, AAO, resting in bed NC AT EOMI PERRLA RRR s1/2 no mgr Lungs CTAB, w/ sym exp Left abd still minor diffusely but continually improved without noted distention and +BS CN2-12 wnl, no fnd Normal mood, appropriate behavior Neck with midline trachea and no JVD or masses Skin without rashes or breakdown noted Laboratory Results - last 24 hr 09/15/19 09/15/19 07:25 07:25 WBC 5.8 RBC 4.10 Hgb 12.4 Hct 36.4 MCV 88.8 MCH 30.1 MCHC 33.9 RDW 12.8 Plt Count 250 MPV 7.6 Absolute Neuts (auto) 2.9 Neutrophils % 49.3 Lymphocytes % 37.3 Monocytes % 8.9 Eosinophils % 3.6 Basophils % 0.9 Nucleated RBC % 0 Sodium 141 Potassium 3.8 Chloride 106 Carbon Dioxide 27 Anion Gap 9 BUN 9.0 Creatinine 0.8 Est GFR (CKD-EPI)AfAm 101.04 Est GFR (CKD-EPI)NonAf 87.18 Random Glucose 77 Calcium 9.0 Magnesium 2.1 Active Medications Generic Name Dose Route Start Last Admin Trade Name Freq PRN Reason Stop Dose Admin Acetaminophen 1,000 mg 09/14/19 12:04 09/14/19 12:24 Ofirmev Injection - IVPB 1,000 mg Q6H PRN Administration HEADACHE Flecainide Acetate 50 mg 09/14/19 10:00 Tambacor - PO DAILY [facility] Heparin Sodium (Porcine) 5,000 unit 09/15/19 10:00 09/15/19 21:14 Heparin - SQ Not Given BID RIS[facility] Piperacillin Sod/Tazobactam 50 mls @ 100 mls/hr 09/14/19 18:00 09/16/19 01:34 Sod 3.375 gm/ Dextrose IVPB 100 mls/hr Q8H-IV RISSA Administration Protocol Ketorolac Tromethamine 15 mg 09/13/19 18:38 Toradol Injection - IVPUSH 09/18/19 18:37 Q6H PRN PAIN LEVEL 1-5 Morphine Sulfate 1 mg 09/13/19 18:38 Morphine Sulfate IVPUSH Q4H PRN PAIN LEVEL 6-10 Ondansetron HCl 4 mg 09/13/19 19:10 Zofran Injection IVPUSH Q6H PRN NAUSEA A/P: Presents with sigmoid diverticulitis with microperforation and complicated UTI with likely bladder stone and pending nephrolithiasis workup and hematuria evident on CT. Problems include: -Sigmoid diverticulitis with microperforation *Advance diet per sgy, needs OP colonoscopy, change to PO abx when OK with ID. -Complicated Cystitis with hematuria *Positive UA with vague dysuria alongside now suspected bladder stone; spiral CT ordered and followup cultures. -Overweight (BMI 25) Barriers to DC at this time include: Needs cleared to change to PO abx and followup spiral CT to r/o nephrolithiasis/bladder stone. May ultimately require urology consultation if there is an indicated diagnosis where inpatient assessment or procedure would be indicated. Full Code Visit type - Emergency Visit Emergency Visit: No - New Patient This patient is new to me today: No - Critical Care Critical Care patient: No
[2019-09-16 09:10] LABS: HEMATOCRIT 36.7 % (32.4-45.2); MCH 31.6 pg (25.7-33.7); MCHC 35.3 g/dl (32.0-36.0); MEAN CELL VOLUME 89.5 fl (80-96); MEAN PLT VOLUME 7.7 fl (7.5-11.1); PLATELET COUNT 260 K/MM3 (134-434); RDW 12.9 % (11.6-15.6); WHITE BLOOD COUNT 6.1 K/mm3 (4.0-10.0)
[2019-09-16 09:43] LABS: BLOOD UREA NITROGEN 9.8 mg/dL (7-18); CALCIUM 9.1 mg/dL (8.5-10.1); CREATININE 0.9 mg/dL (0.55-1.3); POTASSIUM 3.6 mmol/L (3.5-5.1)
[2019-09-16] MEDS ORDERED: PT OWN MED DRAWER 7, Y5N ONE (10:00)
[2019-09-16] MEDS: HEPARIN NA (PORCINE) 5,000 UNITS/ML 1ML VIAL SQ SCH ×2 (10:13→22:10)
--- NOTE | 2019-09-16 12:39 | PN ---
Progress Note, Physician History of Present Illness: patient stable no new issues - Current Medication List Current Medications: Active Medications Acetaminophen (Ofirmev Injection -) 1,000 mg IVPB Q6H PRN PRN Reason: HEADACHE Last Admin: 09/14/19 12:24 Dose: 1,000 mg Flecainide Acetate (Tambacor -) 50 mg PO DAILY [facility] Heparin Sodium (Porcine) (Heparin -) 5,000 unit SQ BID RISSA Last Admin: 09/16/19 10:13 Dose: Not Given Piperacillin Sod/Tazobactam (Sod 3.375 gm/ Dextrose) 50 mls @ 100 mls/hr IVPB Q8H-IV R[facility]; Protocol Last Admin: 09/16/19 10:13 Dose: 100 mls/hr Ketorolac Tromethamine (Toradol Injection -) 15 mg IVPUSH Q6H PRN PRN Reason: PAIN LEVEL 1-5 Stop: 09/18/19 18:37 Morphine Sulfate (Morphine Sulfate) 1 mg IVPUSH Q4H PRN PRN Reason: PAIN LEVEL 6-10 Ondansetron HCl (Zofran Injection) 4 mg IVPUSH Q6H PRN PRN Reason: NAUSEA - Objective Vital Signs: Vital Signs Temperature 98.4 F 09/16/19 10:00 Pulse Rate 77 09/16/19 10:00 Respiratory Rate 28 H 09/16/19 10:00 Blood Pressure 120/77 09/16/19 10:00 O2 Sat by Pulse Oximetry (%) 95 09/16/19 09:00 Constitutional: Yes: No Distress, Calm Cardiovascular: Yes: Regular Rate and Rhythm Respiratory: Yes: Regular, CTA Bilaterally Gastrointestinal: Yes: Normal Bowel Sounds, Soft Musculoskeletal: Yes: WNL Extremities: Yes: WNL Neurological: Yes: Alert, Oriented Psychiatric: Yes: Alert, Oriented Labs: CBC, BMP 09/16/19 08:15 09/16/19 08:15 INR, PTT INR 1.05 (0.83-1.09) 09/13/19 16:44 Assessment/Plan plan diverticulitis abd pain plan continue abx patient starting on diet will see how patient does rest as per the team
[2019-09-17] MEDS: PIPERACILLIN/TAZOB 3.375 GM 3.375 GM in DEXTROSE 5%-WATER - 50 ML IVPB SCH ×3 (01:26→17:26)
[2019-09-17] MEDS ORDERED: PIPERACILLIN/TAZOBACTAM 3.375 GM VIAL IVPB ONE ×3 (01:49→16:12)
[2019-09-17] MEDS ORDERED: DEXTROSE 5%-WATER - 50 ML IVPB ONE ×3 (01:49→16:13)
[2019-09-17] MEDS: HEPARIN NA (PORCINE) 5,000 UNITS/ML 1ML VIAL SQ SCH ×2 (10:02→21:19)
--- NOTE | 2019-09-17 11:00 | PN ---
Progress Note, Physician History of Present Illness: stable feels much better no abd pain tolerated diet - Current Medication List Current Medications: Active Medications Acetaminophen (Ofirmev Injection -) 1,000 mg IVPB Q6H PRN PRN Reason: HEADACHE Last Admin: 09/14/19 12:24 Dose: 1,000 mg Flecainide Acetate (Tambacor -) 50 mg PO DAILY [facility] Heparin Sodium (Porcine) (Heparin -) 5,000 unit SQ BID RISSA Last Admin: 09/17/19 10:02 Dose: Not Given Piperacillin Sod/Tazobactam (Sod 3.375 gm/ Dextrose) 50 mls @ 100 mls/hr IVPB Q8H-IV RISSA; Protocol Last Admin: 09/17/19 10:02 Dose: 100 mls/hr Ketorolac Tromethamine (Toradol Injection -) 15 mg IVPUSH Q6H PRN PRN Reason: PAIN LEVEL 1-5 Stop: 09/18/19 18:37 Morphine Sulfate (Morphine Sulfate) 1 mg IVPUSH Q4H PRN PRN Reason: PAIN LEVEL 6-10 Ondansetron HCl (Zofran Injection) 4 mg IVPUSH Q6H PRN PRN Reason: NAUSEA - Objective Vital Signs: Vital Signs Temperature 98.4 F 09/17/19 09:18 Pulse Rate 85 09/17/19 09:18 Respiratory Rate 18 09/17/19 09:18 Blood Pressure 94/65 09/17/19 09:18 O2 Sat by Pulse Oximetry (%) 100 09/17/19 09:00 Constitutional: Yes: No Distress, Calm Cardiovascular: Yes: S1, S2 Respiratory: Yes: Regular, CTA Bilaterally Gastrointestinal: Yes: Normal Bowel Sounds, Soft Musculoskeletal: Yes: WNL Extremities: Yes: WNL Neurological: Yes: Alert, Oriented Psychiatric: Yes: Alert, Oriented Labs: CBC, BMP 09/16/19 08:15 09/16/19 08:15 INR, PTT INR 1.05 (0.83-1.09) 09/13/19 16:44 Assessment/Plan plan diverticulitis abd pain cystitis plan continue abx can be changed to oral levaquin and flagyl\ levaquin once daily and flagyl 500 mg po tid to be taken for another 10 days
--- NOTE | 2019-09-17 14:50 | PN ---
Progress Note, Physician - Current Medication List Current Medications: Active Medications Acetaminophen (Ofirmev Injection -) 1,000 mg IVPB Q6H PRN PRN Reason: HEADACHE Last Admin: 09/14/19 12:24 Dose: 1,000 mg Flecainide Acetate (Tambacor -) 50 mg PO DAILY [facility] Heparin Sodium (Porcine) (Heparin -) 5,000 unit SQ BID RISSA Last Admin: 09/17/19 10:02 Dose: Not Given Piperacillin Sod/Tazobactam (Sod 3.375 gm/ Dextrose) 50 mls @ 100 mls/hr IVPB Q8H-IV RISSA; Protocol Last Admin: 09/17/19 10:02 Dose: 100 mls/hr Ketorolac Tromethamine (Toradol Injection -) 15 mg IVPUSH Q6H PRN PRN Reason: PAIN LEVEL 1-5 Stop: 09/18/19 18:37 Morphine Sulfate (Morphine Sulfate) 1 mg IVPUSH Q4H PRN PRN Reason: PAIN LEVEL 6-10 Ondansetron HCl (Zofran Injection) 4 mg IVPUSH Q6H PRN PRN Reason: NAUSEA - Objective Vital Signs: Vital Signs Temperature 98.2 F 09/17/19 13:59 Pulse Rate 80 09/17/19 13:59 Respiratory Rate 18 09/17/19 13:59 Blood Pressure 117/80 09/17/19 13:59 O2 Sat by Pulse Oximetry (%) 100 09/17/19 09:00 Labs: CBC, BMP 09/16/19 08:15 09/16/19 08:15 INR, PTT INR 1.05 (0.83-1.09) 09/13/19 16:44 Problem List - Problems (1) Diverticulitis of colon with perforation Code(s): K57.20 - DVTRCLI OF LG INT W PERFORATION AND ABSCESS W/O BLEEDING (2) Abdominal pain Code(s): R10.9 - UNSPECIFIED ABDOMINAL PAIN Qualifiers: Abdominal location: left lower quadrant Qualified Code(s): R10.32 - Left lower quadrant pain (3) Hydronephrosis concurrent with and due to calculi of kidney and ureter Code(s): N13.2 - HYDRONEPHROSIS WITH RENAL AND URETERAL CALCULOUS OBSTRUCTION (4) Paroxysmal atrial fibrillation Code(s): I48.0 - PAROXYSMAL ATRIAL FIBRILLATION Assessment/Plan Surgery: Patient is afebrile. Denies any abdominal pain. Tolerating oral feeding. Abdomen is soft , not tender , no guarding , no mass. WBC is normal. Follow up abdominal Ct scan : Shows some improvement in sigmoid colitis, persistent small pocket of air unchanged. No new leak of air. ID follow up note noted. Patient is explained that if she does not improve and progresses may zenon emergency surgery. Continue antibiotics and orl feeding. Follow up abdominal CT scan after completion of antibiotics.
--- NOTE | 2019-09-17 14:53 | PN ---
Progress Note, Physician Chief Complaint: denies any pain, has diarrea since afternoon, - Current Medication List Current Medications: Active Medications Acetaminophen (Ofirmev Injection -) 1,000 mg IVPB Q6H PRN PRN Reason: HEADACHE Last Admin: 09/14/19 12:24 Dose: 1,000 mg Flecainide Acetate (Tambacor -) 50 mg PO DAILY [facility] Heparin Sodium (Porcine) (Heparin -) 5,000 unit SQ BID RIS[facility] Last Admin: 09/17/19 10:02 Dose: Not Given Piperacillin Sod/Tazobactam (Sod 3.375 gm/ Dextrose) 50 mls @ 100 mls/hr IVPB Q8H-IV RISSA; Protocol Last Admin: 09/17/19 10:02 Dose: 100 mls/hr Ketorolac Tromethamine (Toradol Injection -) 15 mg IVPUSH Q6H PRN PRN Reason: PAIN LEVEL 1-5 Stop: 09/18/19 18:37 Morphine Sulfate (Morphine Sulfate) 1 mg IVPUSH Q4H PRN PRN Reason: PAIN LEVEL 6-10 Ondansetron HCl (Zofran Injection) 4 mg IVPUSH Q6H PRN PRN Reason: NAUSEA - Objective Vital Signs: Vital Signs Temperature 98.2 F 09/17/19 13:59 Pulse Rate 80 09/17/19 13:59 Respiratory Rate 18 09/17/19 13:59 Blood Pressure 117/80 09/17/19 13:59 O2 Sat by Pulse Oximetry (%) 100 09/17/19 09:00 Constitutional: Yes: Well Nourished Eyes: Yes: Conjunctiva Clear, EOM Intact HENT: Yes: Normocephalic Neck: Yes: Supple, Trachea Midline Cardiovascular: Yes: Regular Rate and Rhythm Respiratory: Yes: CTA Bilaterally Gastrointestinal: Yes: Normal Bowel Sounds, Soft, Tenderness, Rebound (none) Edema: No Neurological: Yes: WNL ...Motor Strength: WNL Labs: CBC, BMP 09/16/19 08:15 09/16/19 08:15 INR, PTT INR 1.05 (0.83-1.09) 09/13/19 16:44 - ....Imaging Cat Scan: Report Reviewed Problem List - Problems (1) Abdominal pain Code(s): R10.9 - UNSPECIFIED ABDOMINAL PAIN Qualifiers: Abdominal location: left lower quadrant Qualified Code(s): R10.32 - Left lower quadrant pain (2) Acute diverticulitis of intestine Code(s): K57.92 - DVTRCLI OF INTEST, PART UNSP, W/O PERF OR ABSCESS W/O BLEED (3) Diverticulitis of colon with perforation Code(s): K57.20 - DVTRCLI OF LG INT W PERFORATION AND ABSCESS W/O BLEEDING Impression/Plan Impression/Plan: A/P: Problems include: -Sigmoid diverticulitis with microperforation *Advance diet per sgy, Follow up abdominal Ct scan : Shows some improvement in sigmoid colitis, persistent small pocket of air unchanged. No new leak of air. ID follow up note noted. as per surgery explained to pt that if she does not improve and progresses may need emergency surgery. Continue antibiotics and orl feeding. Follow up abdominal CT scan after completion of antibiotics. will switch to po abs in am if ok with surgery,and if pt stable, renal stones on the ct scan, asymptomatic, negative cultures, will monitor, ) Visit type - Emergency Visit Emergency Visit: No - New Patient This patient is new to me today: Yes Date on this admission: 09/17/19 - Critical Care Critical Care patient: No - Discharge Referral Referred to [facility] Med P.C.: No
[2019-09-18] MEDS ORDERED: PIPERACILLIN/TAZOBACTAM 3.375 GM VIAL IVPB ONE (01:12)
[2019-09-18] MEDS ORDERED: DEXTROSE 5%-WATER - 50 ML IVPB ONE (01:12)
[2019-09-18] MEDS: PIPERACILLIN/TAZOB 3.375 GM 3.375 GM in DEXTROSE 5%-WATER - 50 ML IVPB SCH (01:33)
[2019-09-18 07:31] LABS: BASO % 0.7 % (0-2.0); EOS % 4.3 % (0-4.5); HEMATOCRIT 34.6 % (32.4-45.2); LYMPH % 31.5 % (8-40); MCH 30.5 pg (25.7-33.7); MCHC 34.5 g/dl (32.0-36.0); MEAN CELL VOLUME 88.4 fl (80-96); MEAN PLT VOLUME 7.8 fl (7.5-11.1); MONO % 7.6 % (3.8-10.2); NEUT % 55.9 % (42.8-82.8); PLATELET COUNT 236 K/MM3 (134-434); RBC 3.92 M/mm3 (3.60-5.2); RDW 12.8 % (11.6-15.6); WHITE BLOOD COUNT 7.5 K/mm3 (4.0-10.0)
[2019-09-18 08:11] LABS: ALBUMIN 3.4 g/dl (3.4-5.0); BILIRUBIN,TOTAL 0.5 mg/dL (0.2-1); BLOOD UREA NITROGEN 18.3 mg/dL (7-18); CALCIUM 8.9 mg/dL (8.5-10.1); CREATININE 0.8 mg/dL (0.55-1.3); POTASSIUM 3.6 mmol/L (3.5-5.1); TOT PROT 6.4 g/dl (6.4-8.2)
--- NOTE | 2019-09-18 08:50 | DS ---
Physical Exam: SUBJECTIVE: Pt ready to go home. No abdominal pain. No diarrhea, nausea, vomiting. Tolerating food OBJECTIVE: Vital Signs Period Temp Pulse Resp BP Sys/Rojas Pulse Ox Last 24 Hr 98.0 F-98.4 F 77-85 16-20 94-117/58-86 100-100 PHYSICAL EXAM PE: Gen: NAD, awake, alert, oriented x3 HEENT: NC/AT< SOLO, sclera anicteric, MMM LUNG: CTA b/l no wheezes on RA CARD: RRR no murmurs appreciated ABD: Soft, normoactive BS, NT/ND, no guarding, no hepatomegaly EXT: No edema, pulses strong b/l LABS Laboratory Results - last 24 hr 09/18/19 09/18/19 06:15 06:15 WBC 7.5 RBC 3.92 Hgb 12.0 Hct 34.6 MCV 88.4 MCH 30.5 MCHC 34.5 RDW 12.8 Plt Count 236 MPV 7.8 Absolute Neuts (auto) 4.2 Neutrophils % 55.9 Lymphocytes % 31.5 Monocytes % 7.6 Eosinophils % 4.3 Basophils % 0.7 Nucleated RBC % 0 Sodium 142 Potassium 3.6 Chloride 109 H Carbon Dioxide 27 Anion Gap 6 L BUN 18.3 H Creatinine 0.8 Est GFR (CKD-EPI)AfAm 101.04 Est GFR (CKD-EPI)NonAf 87.18 Random Glucose 92 Calcium 8.9 Total Bilirubin 0.5 AST 13 L ALT 18 Alkaline Phosphatase 64 Total Protein 6.4 Albumin 3.4 Microbiology 09/13/19 18:50 Urine - Urine Clean Catch Urine Culture - Final NO GROWTH OBTAINED Imaging: CT Abd/Pelvis 09/13 Development of the acute diverticulitis in the proximal sigmoid colon with question of a tiny drop of extraluminal air consistent with microperforation. No drainable abscess seen. Right pigtail catheter and bilateral renal calculi. Persistent mild right hydronephrosis. Other findings as above. Clinical correlation advised. CT Abd/Pelvis 09/16 Impression: Interval decrease infiltration/edema around the proximal sigmoid colon compatible with slightly improving previously described acute diverticulitis. A questionable tiny extraluminal air pocket is again seen. No abscess is identified. The rest of the examination is unchanged since prior CT scan of the abdomen pelvis dated 09/13/2019 HOSPITAL COURSE: Date of Admission:09/13/19 Date of Discharge: 09/18/19 Pt was admitted 09/13/19 due to acute diverticulitis with microperforation without any abscess formation. Pt was initiated on Zosyn 3.375 q8h for her intraabdominal diverticulitis as noted by CT scan above. Pt was kept NPO and assess by general surgery who reported no procedure at this point. Her abdominal pain improved and pt became quite hungry and she was advanced with her diet within 36 hrs. Pt has second CT for interval change which showed resolution of colitis and stable air pocket as above. Pt's abdominal symptoms completely resolved and she was transitioned to Levaquin 500mg qdaily and Flagyl 500mg BID PO to be taken on an outpatient basis for another 10 days. Pt today is tolerating regular diet and was instructed to see her PCP within 3-5 days for interval follow-up. In addition GI referral was provided so she can have a colonoscopy for assessment of her diverticulosis and colitis to be done within the month. Pt is being discharged in stable condition with understanding of all discharge instructions. Minutes to complete discharge: 33 Discharge Summary Problems reviewed: Yes Reason For Visit: DIVERTICULITIS,PERFORATION OF SIGMOID COLON DUE TO Current Active Problems Abdominal pain (Acute) Acute diverticulitis of intestine (Acute) Diverticulitis of colon with perforation (Acute) Condition: Good - Instructions Diet, Activity, Other Instructions: You were seen here because you had diverticulitis and your intestine perforated. Fortunately no abscess formed and you were treated with IV antibiotics. You were evaluated by surgery who said you did not need surgery at this time. MEDICATIONS: Please take Levaquin 500mg daily until Wednesday09/24/19 Please take Flagyl 500mg TWICE daily until Wednesday09/24/19 --These are both antibiotics If you have some pain feel free to use over the counter tylenol 500mg 4 times per day as needed Follow-up: Please follow-up with your primary care provider in 3 to 5 days to update them on your care Please follow-up with Dr. Nevarez (technology training associate) as you will likely need a colonoscopy in 5-6 weeks to evaluate your intestines Dr. Holland's (Surgery) information has been provided to you in case your problem does not resolve. Referrals: Anshu Nevarez DO [Staff Physician] - 1 Month (Colonoscopy) Danielle Luong MD [Primary Care Provider] - (3-5 days) Adalberto Holland MD [Staff Physician] - Disposition: HOME - Home Medications Comprehensive Discharge Medication List: Ambulatory Orders Flecainide Acetate [Flecainide Acetate -] 50 mg PO DAILY 03/22/17 levoFLOXacin [Levaquin -] 500 mg PO DAILY #7 tablet 09/18/19 metroNIDAZOLE [Flagyl -] 500 mg PO BID #14 tablet 09/18/19 This patient is new to me today: No Emergency Visit: Yes ED Registration Date: 09/13/19 Care time: The patient presented to the Emergency Department on the above date and was hospitalized for further evaluation of their emergent condition. Critical Care patient: No - Discharge Referral Referred to [facility] Med [facility].C.: Yes Physician Referral: Marc Nevarez DO (GI) ATTENDING PHYSICIAN STATEMENT I saw and evaluated the patient. I reviewed the resident's note and discussed the case with the resident. I agree with the resident's findings and plan as documented. SUBJECTIVE: OBJECTIVE: ASSESSMENT AND PLAN:
[2019-09-18] MEDS ORDERED: PT OWN MED DRAWER 7, Y5N ONE (09:20)
--- NOTE | 2019-09-18 09:31 | PN ---
Teaching Attending Note Name of Resident: Les Lazcano ATTENDING PHYSICIAN STATEMENT I saw and evaluated the patient. I reviewed the resident's note and discussed the case with the resident. I agree with the resident's findings and plan as documented. SUBJECTIVE: Tolerating diet. She denies abdominal pain. OBJECTIVE: Vital Signs Period Temp Pulse Resp BP Sys/Rojas Pulse Ox Last 24 Hr 98.0 F-98.2 F 77-85 16-20 100-117/58-86 100 HEART: S1S2, RRR LUNGS: Clear ABDOMEN: Soft, non-tender, non-distended, normal BS EXTREMITIES: No edema Laboratory Results - last 24 hr 09/18/19 09/18/19 06:15 06:15 WBC 7.5 RBC 3.92 Hgb 12.0 Hct 34.6 MCV 88.4 MCH 30.5 MCHC 34.5 RDW 12.8 Plt Count 236 MPV 7.8 Absolute Neuts (auto) 4.2 Neutrophils % 55.9 Lymphocytes % 31.5 Monocytes % 7.6 Eosinophils % 4.3 Basophils % 0.7 Nucleated RBC % 0 Sodium 142 Potassium 3.6 Chloride 109 H Carbon Dioxide 27 Anion Gap 6 L BUN 18.3 H Creatinine 0.8 Est GFR (CKD-EPI)AfAm 101.04 Est GFR (CKD-EPI)NonAf 87.18 Random Glucose 92 Calcium 8.9 Total Bilirubin 0.5 AST 13 L ALT 18 Alkaline Phosphatase 64 Total Protein 6.4 Albumin 3.4 Current Medications Generic Name Dose Route Start Last Admin Trade Name Freq PRN Reason Stop Dose Admin Acetaminophen 1,000 mg 09/14/19 12:04 09/14/19 12:24 Ofirmev Injection - IVPB 1,000 mg Q6H PRN Administration HEADACHE Flecainide Acetate 50 mg 09/14/19 10:00 Tambacor - PO DAILY [facility] Heparin Sodium (Porcine) 5,000 unit 09/15/19 10:00 09/17/19 21:19 Heparin - SQ Not Given BID RISSA Ketorolac Tromethamine 15 mg 09/13/19 18:38 Toradol Injection - IVPUSH 09/18/19 18:37 Q6H PRN PAIN LEVEL 1-5 Levofloxacin 500 mg 09/18/19 10:00 Levaquin - PO 09/24/19 06:00 DAILY@0600 [facility] Metronidazole 500 mg 09/18/19 10:00 Flagyl - PO 09/24/19 06:00 BID [facility] ASSESSMENT AND PLAN: This is a 49 year old woman with a history of kidney stones, recent right ureteral stent, PAF and ablation who presented to the ED with LLQ abdominal pain. 1. Perforated sigmoid diverticulitis - Doing well - Continue Levaquin, Flagyl 2. Paroxysmal atrial fib, history of ablation - Currently in sinus rhythm - Continue flecainide 3. Nephrolithiasis - Has right ureteral stent 4. Disposition - Ok for discharge home on Levaquin, Flagyl to follow up with PCP, GI
[2019-09-18] MEDS ORDERED: metroNIDAZOLE 250 MG TABLET PO SCH (10:00)
[2019-09-18] MEDS: HEPARIN NA (PORCINE) 5,000 UNITS/ML 1ML VIAL SQ SCH (10:07)
--- NOTE | 2019-09-18 11:34 | PN ---
Progress Note, Physician History of Present Illness: stable no issues tolerating diet - Current Medication List Current Medications: Active Medications Acetaminophen (Ofirmev Injection -) 1,000 mg IVPB Q6H PRN PRN Reason: HEADACHE Last Admin: 09/14/19 12:24 Dose: 1,000 mg Flecainide Acetate (Tambacor -) 50 mg PO DAILY [facility] Heparin Sodium (Porcine) (Heparin -) 5,000 unit SQ BID [facility] Last Admin: 09/18/19 10:07 Dose: Not Given Ketorolac Tromethamine (Toradol Injection -) 15 mg IVPUSH Q6H PRN PRN Reason: PAIN LEVEL 1-5 Stop: 09/18/19 18:37 Levofloxacin (Levaquin -) 500 mg PO DAILY@0600 [facility] Stop: 09/24/19 06:00 Last Admin: 09/18/19 10:07 Dose: 500 mg Metronidazole (Flagyl -) 500 mg PO BID [facility] Stop: 09/24/19 06:00 Last Admin: 09/18/19 10:07 Dose: 500 mg - Objective Vital Signs: Vital Signs Temperature 98.0 F 09/18/19 05:56 Pulse Rate 85 09/18/19 05:56 Respiratory Rate 18 09/18/19 09:00 Blood Pressure 100/58 L 09/18/19 05:56 O2 Sat by Pulse Oximetry (%) 100 09/18/19 09:00 Constitutional: Yes: No Distress, Calm Cardiovascular: Yes: S1, S2 Respiratory: Yes: Regular, CTA Bilaterally Gastrointestinal: Yes: Normal Bowel Sounds, Soft Musculoskeletal: Yes: WNL Extremities: Yes: WNL Neurological: Yes: Alert, Oriented Psychiatric: Yes: Alert, Oriented Labs: CBC, BMP 09/18/19 06:15 09/18/19 06:15 INR, PTT INR 1.05 (0.83-1.09) 09/13/19 16:44 Assessment/Plan plan diverticulitis abd pain cystitis plan continue abx can be changed to oral levaquin and flagyl\ levaquin once daily and flagyl 500 mg po tid to be taken for another 10 days
[2019-09-18 12:44] VITALS: BP 112/60; PULSE 76; TEMP 98
== END 2019-09-18 12:49 | disposition home or self-care (01) | DRG 244 ==
LOC: JER 16:13 → J6S 16:53 → JER 21:33 → J6S 09-14 23:29
PROVIDERS: ADMIT Internal Medicine; ATTEND Internal Medicine
DX: K57.20 Diverticulitis of large intestine with perforation and abscess without bleeding (principal); R10.32 Left lower quadrant pain; I48.0 Paroxysmal atrial fibrillation; N13.2 Hydronephrosis with renal and ureteral calculous obstruction; N30.91 Cystitis, unspecified with hematuria; R19.7 Diarrhea, unspecified
CPT/HCPCS: 36415; 71045-TC-FY; 74021-TC-FY; 74176-TC; 80048; 80053; 81003; 83735; 85025; 85027; 85610; 86850; 86900; 86901; 87086; 93005; 93010; 99284-25; J0131; J7030

== ENCOUNTER 2019-12-07 09:45 | Emergency (ER) | payer OTHER ==
[2019-12-07 10:25] VITALS: BP 102/69; PULSE 76; TEMP 98.3; BMI 24.7
--- NOTE | 2019-12-07 11:28 | PDOC ---
History of Present Illness - General Chief Complaint: Pain, Acute Stated Complaint: PAIN Time Seen by Provider: 12/07/19 10:30 History Source: Patient Exam Limitations: No Limitations - History of Present Illness Travel History: No Initial Comments: 12/07/19 11:19 49-year-old female presents to ED with complaints of left lower quadrant pain worsened with movement for the past day associated with left lower back pain. Patient has no urinary complaints, vaginal discharge diarrhea, fever or chills. Patient also denies nausea. Patient does state history of renal colic and states is menopausal. Timing/Duration: reports: intermittent Quality: reports: mild, cramping Abdominal Pain Onset Location: reports: LLQ Pain Radiation: reports: back Activities at Onset: reports: none Aggravating Factors: improves with: None Alleviating Factors: improves with: None Past History - Past Medical History Allergies/Adverse Reactions: Allergies Allergy/AdvReac Type Severity Reaction Status Date / Time No Known Allergies Allergy Verified 12/07/19 10:26 Home Medications: Ambulatory Orders NK [No Known Home Medication] 12/07/19 Anemia: Yes Asthma: No Cancer: No Cardiac Disorders: Yes (a.fib-had an ablation 2015) CVA: No COPD: No CHF: No Dementia: No Diabetes: No GI Disorders: Yes (Diverticulitis) Disorders: No (RENAL CALCULI, HX ESWOL SEVERAL X'S) HTN: No Hypercholesterolemia: No Kidney Stones: Yes Liver Disease: No Seizures: No Thyroid Disease: No - Surgical History Abdominal Surgery: Yes (fibroid) Appendectomy: No Cardiac Surgery: Yes (ablation 09/30) Cholecystectomy: No Lung Surgery: No Neurologic Surgery: No Orthopedic Surgery: No - Psycho Social/Smoking Cessation Hx Smoking History: Never smoked Have you smoked in the past 12 months: No Hx Alcohol Use: No Drug/Substance Use Hx: No Substance Use Type: None Hx Substance Use Treatment: No Patient Lives Alone: No Lives with/in: spouse/SO Abd/GI Specific PMHX - Complaint Specific PMHX Colitis: No Diverticulitis: No Gall Bladder Disease: No GERD: No Hepatitis: No Irritable Bowel Synd (IBS): No Pancreatitis: No GI Ulcer Disease: No Review of Systems - Review of Systems Able to Perform ROS?: Yes Constitutional: No: Symptoms Reported HEENTM: No: Symptoms Reported Respiratory: No: Symptoms reported Cardiac (ROS): No: Symptoms Reported ABD/GI: Yes: Abdominal cramping : Yes: Flank Pain Musculoskeletal: No: Symptoms Reported Integumentary: No: Symptoms Reported Neurological: No: Symptoms reported Hematologic/Lymphatic: No: Symptoms Reported *Physical Exam - Vital Signs Last Vital Signs Temp Pulse Resp BP Pulse Ox 98.3 F 76 16 102/69 100 12/07/19 10:23 12/07/19 10:23 12/07/19 10:23 12/07/19 10:23 12/07/19 10:23 - Physical Exam General Appearance: Yes: Nourished, Appropriately Dressed. No: Apparent Distress Gastrointestinal/Abdominal: positive: Normal Bowel Sounds, Soft, Tenderness ( left Lower quadrant/ left suprapubic). negative: Distended, Guarding, Rebound Musculoskeletal: negative: CVA Tenderness (R), CVA Tenderness (L) Extremity: positive: Normal Inspection Integumentary: positive: Normal Color, Warm, Moist Neurologic: positive: Motor Strength 5/5 (Ambulatory) Medical Decision Making - Medical Decision Making 12/07/19 11:46 Chief complaint: Left lower abdominal cramping since yesterday intermittently worsened with movement rating to her back Patient with history of renal colic but denies [employer] history. Patient is menopausal. Exam: Left lower quadrant left suprapubic tenderness no CVA tenderness plan: Urinalysis Urine culture will consider imaging once reviewed offered Tylenol Motrin but refused stating the pain is minor 12/07/19 12:16 Laboratory Tests 12/07/19 11:12 Urine Bilirubin Negative Urine Urobilinogen 0.2 Urine WBC (Auto) 48 Urine RBC (Auto) 4 Urine Bacteria (Auto) 1641.4 Patient will be treated for pyelonephritis secondary to complaints of back pain Discharge - Discharge Information Problems reviewed: Yes Clinical Impression/Diagnosis: Pyelonephritis Condition: Improved Disposition: HOME - Follow up/Referral - Patient Discharge Instructions Patient Printed Discharge Instructions: DI for Kidney Infection Additional Instructions: Please drink plenty of water clean from front to back wear cotton underwear and take antibiotics until completed. - Post Discharge Activity Work/Back to School Note: Back to Work
[2019-12-07 12:00] LABS: EPI CELLS 6.1 /HPF (0-5/HPF); HYALINE CASTS 83 /lpf (0-8); PH,URINE 6.5 (5.0-8.0); URINE APPEARANCE CLOUDY; URINE BACTERIA 1641.4 /hpf (NEGATIVE); URINE BILIRUBIN NEGATIVE (NEGATIVE); URINE COLOR YELLOW; URINE GLUCOSE (UA) NEGATIVE (NEGATIVE); URINE KETONE NEGATIVE (NEGATIVE); URINE LEUK ESTERASE 2+ (NEGATIVE); URINE NITRITE NEGATIVE (NEGATIVE); URINE PROTEIN NEGATIVE (NEGATIVE); URINE RBC 4 /hpf (0-4); URINE UROBILINOGEN 0.2 mg/dL (0.2-1.0); URINE WBC 48 /hpf (0-5)
== END 2019-12-07 12:27 | disposition home or self-care (01) ==
LOC: JER 09:45
DX: N12 Tubulo-interstitial nephritis, not specified as acute or chronic (principal); Z87.440 Personal history of urinary (tract) infections; Z87.19 Personal history of other diseases of the digestive system; Z86.79 Personal history of other diseases of the circulatory system
CPT/HCPCS: 81003; 84703; 87086; 87186; 99282-25

== ENCOUNTER 2020-01-04 12:19 | Day surgery (SDC) | payer OTHER ==
[2020-01-03 16:46] VITALS: BMI 24.9
[2020-01-04 14:33] VITALS: TEMP 97.9
[2020-01-04 14:35] VITALS: PULSE 78
[2020-01-04 15:47] VITALS: BP 118/70
--- NOTE | 2020-01-08 14:59 | PATH ---
Surgical Pathology Report Patient Name: MARCELO WE[facility]. Rec. #: [id number] /Age/Gender: 1970 (Age: 49) / F Account: [id number] Location: ASU-ENDOSCOPY Taken: 01/04/2020 Received: 01/05/2020 Reported: 01/08/2020 Physicians: Marc Nevarez D.O. Specimen(s) Received LYNN-ANAL Clinical History Screening after episode diverticulitis Postoperative diagnosis: Rectal polyp Final Diagnosis PERIANAL BIOPSY: CONDYLOMA ACUMINATUM. Electronically Signed Kike Muir M.D. Gross Description Received in formalin, labeled "perianal biopsy" are 3 edward, irregular portions of soft tissue ranging from 0.1-0.2 cm. in greatest dimension. The specimens are submitted in toto in one cassette. /01/05/2020 [facility]01/05/2020
== END 2020-01-04 15:15 | disposition home or self-care (01) ==
LOC: JASU-ENDO 12:19
PROVIDERS: ATTEND Internal Medicine Gastroenterology
PROC: 0DBP8ZX Excision of Rectum, Via Natural or Artificial Opening Endoscopic, Diagnostic (ICD-10-PCS; principal; 2020-01-04 13:15)
DX: K57.30 Diverticulosis of large intestine without perforation or abscess without bleeding (principal); K64.8 Other hemorrhoids; A63.0 Anogenital (venereal) warts
CPT/HCPCS: 88305-TC

== ENCOUNTER 2020-09-03 15:57 | Emergency (ER) | payer OTHER ==
--- NOTE | 2020-09-03 16:06 | PDOC ---
Rapid Medical Evaluation Time Seen by Provider: 09/03/20 16:04 Medical Evaluation: Allergies Allergy/AdvReac Type Severity Reaction Status Date / Time No Known Allergies Allergy Verified 04/08/20 12:33 09/03/20 16:05 I have performed a brief in-person evaluation of this patient. The patient presents with a chief complaint of:lower back pain s/p moving boxes several days ago. H/o renal stone, diverticulitis, afib on AC Pertinent physical exam findings:appears uncomfortable, has back brace in place I have ordered the following:nothing The patient will proceed to the ED for further evaluation. Discharge Disposition - Diagnosis Low back pain Qualifiers: Chronicity: acute Back pain laterality: unspecified Sciatica presence: without sciatica Qualified Code(s): M54.5 - Low back pain - Referrals - Patient Instructions - Post Discharge Activity
[2020-09-03 16:15] VITALS: BP 122/80; PULSE 82; TEMP 97.8; BMI 24.7
--- OUTSIDE RECORDS SUMMARY | 2020-09-03 16:15 | XMS ---
:1970 Author Organization [facility] Care Team Providers Name Role Phone GENI PEARL Unavailable Unavailable Re-disclosure Warning The records that you are about to access may contain information from federally- assisted alcohol or drug abuse programs. If such information is present, then the following federally mandated warning applies: This information has been disclosed to you from records protected by federal confidentiality rules (42 CFR part 2). The federal rules prohibit you from making any further disclosure of this information unless further disclosure is expressly permitted by the written consent of the person to whom it pertains or as otherwise permitted by 42 CFR part 2. A general authorization for the release of medical or other information is NOT sufficient for this purpose. The Federal rules restrict any use of the information to criminally investigate or prosecute any alcohol or drug abuse patient.The records that you are about to access may contain highly sensitive health information, the redisclosure of which is protected by Article 27-F of the [facility] Public Health law. If you continue you may haveaccess to information: Regarding HIV / AIDS; Provided by facilities licensed or operated by the [facility] Office of Mental Health; or Provided by the [facility] Office for People With Developmental Disabilities. If such information is present, then the following [facility] mandated warning applies: This information has been disclosed to you from confidential records which are protected by state law. State law prohibits you from making any further disclosure of this information without the specific written consent of the person to whom it pertains, or as otherwise permitted by law. Any unauthorized further disclosure in violation of state law may result in a fine or retirement sentence or both. A general authorization for the release of medical or other information is NOT sufficient authorization for further disclosure. Encounters Encounter Providers Location Date Indications Data Source(s ) Outpatient Attender: GENI 08/14/2019 [facility] 07:06:00 AM Medical [facility] ARECHIGAAdmitter: EDT - GENI OLGUIN 08/14/2019 GENIReferrer: 03:50:00 PM GENI ALCAZARKAJAL EDT [facility] Outpatient [facility] 07/28/2019 eCW3 ([facility] 12:00:00 AM [facility] - [facility]) 07/28/2019 12:00:00 AM EDT Outpatient [facility] 07/07/2019 eCW3 ([facility] 12:00:00 [facility] - [facility]) 07/07/2019 12:00:00 AM EDT Medications Medication Brand Start Product Dose Route Administrative Pharmacy [facility] Indications Reaction Description Data Name Date Form Instructions Instructions Source(s) Diclofenac Diclof 07/07/ active Diclofen ac eCW3 Sodium 0.01 2018 Sodium 1 % ([facility] MG/MG Sodium 12:00: [facility] Topical Gel 1 % 00 AM [facility] Diclofenac EDT Care) Sodium 1 % Diclofenac Diclof 07/07/ active Diclofen ac eCW3 Sodium 0.01 2018 Sodium 1 % ([facility] MG/MG Sodium 12:00: [facility] Topical Gel 1 % 00 AM [facility] Diclofenac EDT Care) Sodium 1 % Insurance Providers Payer name Policy type Policy ID Covered Covered democrat's Policy P cedrick / Coverage democrat ID relationship to Maloney Inf ormation type maloney NEO [id number] SP [id number] HEALTH NON CAP NEO CARE [id number] 1 [id number] [id number] MEDICAID [id number] SP [id number] NEO [id number] SP [id number] 700 HEALTH NON CAP NEO [id number] SP [id number] 700 HEALTH NON CAP NEO W [id number] 01 [id number] BETTER [id number] PT [id number] HEALTH/FIDELI S NEO [id number] PT [id number] 700 MEDICARE ADVANTAGE Problems, Conditions, and Diagnoses Code Display Name Description Problem Type Effective Data Dates Source(s) N13.30 Unspecified UNSPECIFIED Diagnosis 08/14/2019 [facility] hydronephrosis HYDRONEPHROSIS 07:06:00 AM Medic al EDT Center N20.1 Calculus of ureter CALCULUS OF URETER Diagnosis [facility] 07:06:00 AM Medical EDT Center Vital Signs ID Date Data Source UNK Name Value Range Interpretation Code Description Data Source(s) Diastolic blood 60 mm[Hg] 60 mm[Hg] eCW3 ([facility]) Systolic blood 93 mm[Hg] 93 mm[Hg] eCW3 ([facility]) Body temperature 98.6 [degF] 98.6 [degF] eCW3 ( [facility]) Heart rate 20 /min 20 /min eCW3 ([facility]) Body mass index 24.89 kg/m2 24.89 kg/m2 eCW3 ([facility] (BMI) [Ratio] [facility]) Body weight 145 [lb_av] 145 [lb_av] eCW3 ([facility]) Body height 64 [in_i] 64 [in_i] eCW3 ([facility]) Diastolic blood 71 mm[Hg] 71 mm[Hg] eCW3 ([facility]) Systolic blood 108 mm[Hg] 108 mm[Hg] eCW3 ([facility]) Body temperature 98.2 [degF] 98.2 [degF] eCW3 ( [facility]) Heart rate 20 /min 20 /min eCW3 ([facility]) Body mass index 25.06 kg/m2 25.06 kg/m2 eCW3 ([facility] (BMI) [Ratio] [facility]) Body weight 146 [lb_av] 146 [lb_av] eCW3 ([facility]) Body height 64 [in_i] 64 [in_i] eCW3 ([facility])
[2020-09-03] MEDS ORDERED: KETOROLAC TROMETHAMINE 30 MG/1 ML VIAL IVPUSH ONE (17:03)
[2020-09-03] MEDS ORDERED: ACETAMINOPHEN 1000 MG/100 ML VIAL (NON FORMULARY) IVPB ONE (17:03)
[2020-09-03] MEDS ORDERED: KETOROLAC TROMETHAMINE 30 MG/1 ML VIAL ONE (17:38)
[2020-09-03] MEDS ORDERED: ACETAMINOPHEN INJECTION 100 ML IVPB ONE (17:38)
--- NOTE | 2020-09-03 18:38 | PDOC ---
History of Present Illness - General Chief Complaint: Back Pain Stated Complaint: LOWER BACK PAIN Time Seen by Provider: 09/03/20 16:04 - History of Present Illness Initial Comments: 09/03/20 18:36 50-year-old female denies comorbidities takes no home meds denies the possibility of presents for evaluation of low back pain without systemic or radicular symptoms. No loss of bowel bladder function or saddle paresthesias. Pain x1 day Past History - Medical History Allergies/Adverse Reactions: Allergies Allergy/AdvReac Type Severity Reaction Status Date / Time No Known Allergies Allergy Verified 09/03/20 16:06 Home Medications: Ambulatory Orders Flecainide Acetate [Flecainide Acetate -] 50 mg PO BID 12/28/19 Cyclobenzaprine HCl [Flexeril 10 mg] 10 mg PO HS PRN #10 tablet 09/03/20 Ibuprofen [Motrin -] 600 mg PO TID #30 tablet 09/03/20 Anemia: No Asthma: No Cancer: No Cardiac Disorders: Yes (A.FIB CURRENTLY NOT ON A/C) CVA: No COPD: No CHF: No Dementia: No Diabetes: No GI Disorders: Yes (DIVERTICULITIS 11/02) Disorders: Yes (RENAL CALCULI, HX ESWOL SEVERAL X'S) HTN: No Hypercholesterolemia: No Kidney Stones: Yes Liver Disease: No Seizures: No Thyroid Disease: No - Surgical History Abdominal Surgery: No Appendectomy: No Cardiac Surgery: Yes (Ablation 09/30) Cholecystectomy: No Lung Surgery: No Neurologic Surgery: No Orthopedic Surgery: No - Reproductive History Is Patient Now?: No - Immunization History Immunization Up to Date: Yes - Psycho-Social/Smoking History Smoking History: Never smoked Have you smoked in the past 12 months: No - Substance Abuse Hx (Audit-C & DAST Scrn) How often the patient has a drink containing alcohol: Never Score: In Men: 4 or > Positive; In Women: 3 or > Positive: 0 Screen Result (Pos requires Nsg. Audit-10AR): Negative In the last yr the pt used illegal drug/Rx for NonMed reason: No Score: Yes response is considered Positive: 0 Screen Result (Positive result requires Nsg. DAST-10): Negative Review of Systems - Review of Systems Musculoskeletal: Yes: Back Pain *Physical Exam - Vital Signs Last Vital Signs Temp Pulse Resp BP Pulse Ox 97.8 F 82 16 122/80 100 09/03/20 16:06 09/03/20 16:06 09/03/20 16:06 09/03/20 16:06 09/03/20 16:06 - Physical Exam 09/03/20 18:37 Lumbar spine skin color temperature normal range of motion is slightly decreased. No midline tenderness. Moderate bilateral paralumbar musculature spasm and tenderness 5 out of 5 strength bilateral lower extremities without gross sensorimotor deficits thighs and calves are soft and nontender neurovascular intact ED Treatment Course - Medications Given in the ED: ED Medications Discontinued Medications Generic Name Dose Route Start Last Admin Trade Name Freq PRN Reason Stop Dose Admin Acetaminophen 1,000 mg 09/03/20 17:03 09/03/20 18:30 Ofirmev Injection - IVPB 09/03/20 17:04 1,000 mg ONCE ONE Administration Ketorolac Tromethamine 30 mg 09/03/20 17:03 09/03/20 18:30 Toradol Injection - IVPUSH 09/03/20 17:04 30 mg ONCE ONE Administration Medical Decision Making - Medical Decision Making 09/03/20 18:37 Patient had mild to moderate relief after IV meds in the emergency room Motrin and Flexeril and instructions when to start medications were given to patient Subspecialty follow-up I have reviewed the pathophysiology with the patient. They are in agreement with the treatment plan all questions were answered to their satisfaction. Understanding for follow-up without fail was also conveyed to the patient. Again they are in agreement. Discharge - Discharge Information Problems reviewed: Yes Clinical Impression/Diagnosis: Low back pain Qualifiers: Chronicity: acute Back pain laterality: unspecified Sciatica presence: without sciatica Qualified Code(s): M54.5 - Low back pain Condition: Improved Disposition: HOME - Admission No - Additional Discharge Information Prescriptions: Cyclobenzaprine HCl [Flexeril 10 mg] 10 mg PO HS PRN #10 tablet PRN Reason: Muscle Spasms Ibuprofen [Motrin -] 600 mg PO TID #30 tablet - Follow up/Referral Referrals: Jerald Dixon DO [Staff Physician] - - Patient Discharge Instructions Additional Instructions: Start the Flexeril muscle relaxer this evening before bedtime. Will make you sleepy. Do not start the Motrin until tomorrow as you were given an injection of a long-acting anti-inflammatory in the emergency room. Return to the emergency room for worsening symptoms and without fail follow-up with orthopedic surgery in 2 to 3 days for further evaluation and treatment options. - Post Discharge Activity
== END 2020-09-03 19:04 | disposition home or self-care (01) ==
LOC: JER 15:57 → JERFT 15:57 → JER 19:04
PROC: 3E0333Z Introduction of Anti-inflammatory into Peripheral Vein, Percutaneous Approach (ICD-10-PCS; principal; 2020-09-03)
PROC: 3E0333Z Introduction of Anti-inflammatory into Peripheral Vein, Percutaneous Approach (ICD-10-PCS; 2020-09-03)
DX: M54.5 Low back pain (principal)
CPT/HCPCS: 99284-25; J0131

== ENCOUNTER 2020-12-17 14:07 | Emergency (ER) | payer OTHER ==
[2020-12-17 14:16] VITALS: BP 130/79; PULSE 91; BMI 25.7
== END 2020-12-17 15:50 | disposition home or self-care (01) ==
LOC: JERFT 14:07
DX: R07.81 Pleurodynia (principal); M79.602 Pain in left arm
CPT/HCPCS: 71046-TC-FY; 71101-TC-LT-FY; 99284-25

== ENCOUNTER 2021-10-23 03:27 | Emergency (ER) | payer OTHER ==
[2021-10-23] MEDS ORDERED: SODIUM CHLORIDE 0.9% 500 ML INFUS.BAG IV ONE (04:11)
[2021-10-23] MEDS ORDERED: OXYMETAZOLINE 0.05% NASAL SOLUTION 15 ML BOTTLE NS ONE (04:12)
[2021-10-23 04:16] VITALS: BP 114/78; PULSE 77; TEMP 97.8; BMI 24.9
[2021-10-23] MEDS ORDERED: DEXAMETHASONE SOD PHOSPHATE 10 MG/1 ML VIAL IM ONE (04:32)
[2021-10-23] MEDS ORDERED: DEXAMETHASONE SOD PHOSPHATE 10 MG/1 ML VIAL IVPUSH ONE (04:41)
[2021-10-23] MEDS ORDERED: DEXAMETHASONE SOD PHOSPHATE 10 MG/1 ML VIAL ONE (04:41)
== END 2021-10-23 06:08 | disposition home or self-care (01) ==
LOC: JER 03:27
PROC: 3E033GC Introduction of Other Therapeutic Substance into Peripheral Vein, Percutaneous Approach (ICD-10-PCS; principal; 2021-10-23)
DX: R53.83 Other fatigue (principal); R09.81 Nasal congestion
CPT/HCPCS: 87804; 87807; 99284-25; C9803; J1100; U0003; U0005

== ENCOUNTER 2022-11-14 10:50 | Emergency (ER) | payer OTHER ==
[2022-11-14 10:57] VITALS: BP 108/73; PULSE 83; RESP 18; TEMP 98.8; BMI 26.6
[2022-11-14] MEDS ORDERED: KETOROLAC TROMETHAMINE 30 MG/1 ML VIAL IM ONE (13:02)
[2022-11-14] MEDS ORDERED: METHOCARBAMOL 500 MG TABLET PO ONE (13:02)
[2022-11-14] MEDS ORDERED: METHOCARBAMOL 500 MG TABLET ONE (13:03)
[2022-11-14] MEDS ORDERED: KETOROLAC TROMETHAMINE 30 MG/1 ML VIAL ONE (13:03)
== END 2022-11-14 13:15 | disposition home or self-care (01) ==
LOC: JERFT 10:50 → JER 10:50 → JERFT 13:15
PROC: 3E023GC Introduction of Other Therapeutic Substance into Muscle, Percutaneous Approach (ICD-10-PCS; principal; 2022-11-14)
DX: M62.830 Muscle spasm of back (principal)
CPT/HCPCS: 99284-25

== ENCOUNTER 2023-02-06 21:35 | Emergency (ER) | payer OTHER ==
[2023-02-06 21:47] VITALS: BP 126/81; PULSE 86; RESP 20; TEMP 98.2; BMI 25.7
[2023-02-06 22:49] LABS: EPI CELLS 12 /uL (0-25.1); HYALINE CASTS 1 /uL (0-3.1); URINE APPEARANCE CLOUDY; URINE BACTERIA 33 /uL (0-1359); URINE BILIRUBIN NEGATIVE (NEGATIVE); URINE COLOR YELLOW; URINE GLUCOSE (UA) NEGATIVE (NEGATIVE); URINE KETONE NEGATIVE (NEGATIVE); URINE LEUK ESTERASE 2+ (NEGATIVE); URINE NITRITE NEGATIVE (NEGATIVE); URINE PROTEIN NEGATIVE (NEGATIVE); URINE RBC 5 /uL (0-23.9); URINE UROBILINOGEN 0.2 mg/dL (0.2-1.0); URINE WBC 41 /uL (0-25.8)
[2023-02-06] MEDS ORDERED: LIDOCAINE 5% TOPICAL PATCH TP ONE (22:57)
[2023-02-06] MEDS ORDERED: KETOROLAC TROMETHAMINE 30 MG/1 ML VIAL IM ONE (22:57)
[2023-02-06] MEDS ORDERED: diazePAM 5 MG TABLET PO ONE (22:57)
[2023-02-06] MEDS ORDERED: LIDOCAINE 5% TOPICAL PATCH ONE (23:00)
[2023-02-06] MEDS ORDERED: diazePAM 5 MG TABLET ONE (23:01)
[2023-02-06] MEDS ORDERED: KETOROLAC TROMETHAMINE 30 MG/1 ML VIAL ONE (23:01)
[2023-02-07] MEDS ORDERED: LIDOCAINE PATCH REMOVAL MC ONE (11:00)
== END 2023-02-06 23:29 | disposition home or self-care (01) ==
LOC: JER 21:35 → JERFT 21:35
PROC: 3E0233Z Introduction of Anti-inflammatory into Muscle, Percutaneous Approach (ICD-10-PCS; principal; 2023-02-06)
DX: M54.16 Radiculopathy, lumbar region (principal)
CPT/HCPCS: 81003; 87086; 99283-25

== ENCOUNTER 2023-10-25 16:06 | Emergency (ER) | payer OTHER ==
[2023-10-25 16:41] VITALS: BMI 27.4
[2023-10-25] MEDS ORDERED: ACETAMINOPHEN 1000 MG/100 ML BAG IVPB ONE (17:34)
[2023-10-25] MEDS ORDERED: ACETAMINOPHEN INJECTION 100 ML IVPB ONE (17:48)
[2023-10-25 18:00] LABS: EPI CELLS 8 /uL (0-25.1); HYALINE CASTS 0 /uL (0-3.1); URINE APPEARANCE CLEAR; URINE BACTERIA 16 /uL (0-1359); URINE BILIRUBIN NEGATIVE (NEGATIVE); URINE COLOR YELLOW; URINE GLUCOSE (UA) NEGATIVE (NEGATIVE); URINE KETONE 1+ (NEGATIVE); URINE LEUK ESTERASE 1+ (NEGATIVE); URINE NITRITE NEGATIVE (NEGATIVE); URINE PROTEIN NEGATIVE (NEGATIVE); URINE RBC 12 /uL (0-23.9); URINE UROBILINOGEN 0.2 mg/dL (0.2-1.0); URINE WBC 54 /uL (0-25.8)
[2023-10-25 18:06] LABS: BASO % 0.8 % (0-2.0); EOS % 2.1 % (0-4.5); HEMATOCRIT 35.4 % (32.4-45.2); LYMPH % 39.5 % (8-40); MCH 29.5 pg (25.7-33.7); MEAN CELL VOLUME 86.9 fl (80-96); MEAN PLT VOLUME 7.4 fl (7.5-11.1); MONO % 9.9 % (3.8-10.2); NEUT % 47.7 % (42.8-82.8); PLATELET COUNT 257 10^3/uL (134-434); RBC 4.07 M/mm3 (3.60-5.2); RDW 13.8 % (11.6-15.6); WHITE BLOOD COUNT 8.8 K/mm3 (4.0-10.0)
[2023-10-25 18:15] LABS: INR 1.09 (0.83-1.09); PROTHROMBIN TIME (PATIENT) 12.6 SEC (9.7-13.0)
[2023-10-25 18:17] LABS: ACTIVATED PTT 38.3 SECONDS (25.2-36.5)
[2023-10-25 18:23] LABS: POTASSIUM 3.6 mmol/L (3.5-5.1)
[2023-10-25 18:25] LABS: ALBUMIN 3.7 g/dl (3.4-5.0); BLOOD UREA NITROGEN 15.4 mg/dL (7-18); CALCIUM 8.6 mg/dL (8.5-10.1)
[2023-10-25 18:28] LABS: CREATININE 0.7 mg/dL (0.55-1.3)
[2023-10-25 18:30] LABS: BILIRUBIN,TOTAL 0.5 mg/dL (0.2-1)
[2023-10-25] MEDS ORDERED: AMOX TR/POT CLAV 875MG/125MG TABLETS (FP) PO ONE (21:04)
[2023-10-25] MEDS ORDERED: AMOX TR/POT CLAV 875MG/125MG TABLETS (FP) ONE (21:13)
[2023-10-25 22:09] VITALS: BP 126/78; PULSE 84; RESP 17; TEMP 98.3
== END 2023-10-25 22:10 | disposition home or self-care (01) ==
LOC: JER 16:06
PROC: 3E033NZ Introduction of Analgesics, Hypnotics, Sedatives into Peripheral Vein, Percutaneous Approach (ICD-10-PCS; principal; 2023-10-25)
DX: R10.32 Left lower quadrant pain (principal); R68.83 Chills (without fever); K57.32 Diverticulitis of large intestine without perforation or abscess without bleeding
CPT/HCPCS: 36415; 74177-TC; 80053; 81003; 84703; 85025; 85610; 85730; 86850; 86900; 86901; 87086; 93005; 93010; 99285-25; Q9967